=== PATIENT | female | born 1965 | race Caucasian/White ===

== ENCOUNTER 2017-01-30 11:37 | Emergency (ER) | payer OTHER ==
[~2017-01-30] VITALS: Ht 165.1 cm; Wt 56.9 kg
[~2017-01-30 11:37] MED LIST: ASCA500 PO; CALCTAB13 PO; CLBCRM30 EXT; FLUO0.0543 TOP; FLUO10CA48 PO; FLV1 PO; LRT5 PO; MERCAPTOPURINE PO; MOME50SP5 NAE; MULT-506 PO; PRLSR20 PO; SUMA6KIT SC; ULT/50 PO
[2017-01-30 11:42] VITALS: TEMP 36.6; Ht 165.1 cm; Wt 56.9 kg
[2017-01-30] MEDS ORDERED: SODIUM CHLORIDE 0.9% 1000ML 1,000 ML IV STA (12:32)
[2017-01-30 12:33] LABS: BASO % 0.7 %; BASO ABS # 0.06 K/uL (0-0.2); COMPLETE YES; EOS % 0.6 %; HEMATOCRIT 43.3 % (37-47); IG% 0.1 %; LYMPH % 16.1 %; LYMPH ABS # 1.45 K/uL (1.2-3.4); MEAN CELL VOLUME 89.8 fL (80-100); MEAN CORPUSCULAR HEMOGLOBIN 31.3 pg (25-34); MEAN CORPUSCULAR HGB CONC 34.9 g/dl (32-36); MONO % 4.6 %; NEUT % 77.9 %; PLATELET COUNT 328 K/uL (130-400); RED BLOOD COUNT 4.82 M/uL (4.2-5.4); WHITE BLOOD COUNT 8.99 K/uL (4.8-10.8)
[2017-01-30 12:39] LABS: MANUAL MICROSCOPIC REQUIRED? YES; URINE APPEARANCE SL CLOUDY (CLEAR); URINE BILIRUBIN NEG (NEG); URINE COLOR RED; URINE NITRITE NEG (NEG); URINE PH 5.5 (4.5-7.5); URINE SPECIFIC GRAVITY <= 1.005 (1.000-1.030); UROBILINOGEN NEG (NEG)
--- NOTE | 2017-01-30 12:46 | DIAGNOSTIC IMAGING REPORT ---
CHEST ONE VIEW PORTABLE HISTORY: 51 years Female acute dizziness COMPARISON: Chest radiograph 02/01/2011 TECHNIQUE: Portable upright AP view of the chest FINDINGS: Cardiomediastinal and hilar silhouettes are within normal limits no pneumothorax, pleural effusion, focal airspace consolidation or overt pulmonary edema. There is mild pulmonary hyperinflation The bones are grossly intact. IMPRESSION: Mild pulmonary hyperinflation without acute cardiopulmonary process. The above report was generated using voice recognition software. It may contain grammatical, syntax or spelling errors. Electronically signed by: Jorge Arevalo M.D. 01/30/2017 12:45 PM Dictated Date/Time: 01/30/2017 12:44 PM
[2017-01-30 13:00] LABS: REVIEW REQ? NO
[2017-01-30 13:04] LABS: BUN/CREATININE RATIO 11.4 (10-20); CALCIUM 9.1 mg/dl (8.5-10.1); CKMB/CK RATIO 1.3 (0-3.0); CREATININE 0.96 mg/dl (0.60-1.20); MAGNESIUM 2.2 mg/dl (1.8-2.4); POTASSIUM 4.1 mmol/L (3.5-5.1); THYROID STIMULATING HORMONE 4.44 uIu/ml (0.300-4.500)
[2017-01-30 13:15] LABS: URINE RBC >30 /hpf (0-4)
[2017-01-30 13:17] LABS: URINE BACTERIA 1+ (NEG)
[2017-01-30 13:19] LABS: ZZUR CULT IF INDIC CLEAN CATCH YES
--- NOTE | 2017-01-30 13:25 | EMERGENCY ROOM VISIT NOTE ---
History Report prepared by Ramila: Siva Sandoval Under the Supervision of: Dr. Pérez Chaves D.O. First contact with patient: 12:25 Chief Complaint: DIZZY Stated Complaint: DIZZY,WEAK, ARMS TINGLING AND BLOOD IN STOOL Nursing Triage Summary: pt c/o tingling to bilateral arms in triage. History of Present Illness The patient is a 51 year old female who presents to the Emergency Room with complaints of lightheadedness starting around 3 and a half hours ago. She reports worsening symptoms with standing up and ambulation. She has symptom relief with rest. She also complains of generalized weakness occurring for the past 2 days. She has been having bright, red blood in stool starting yesterday. She reports mild abdominal pain. As per , she was outside in the heat yesterday for about 4 hours. The patient denies cough, chest pain, shortness of breath, nausea, vomiting, diarrhea, or any other complaints. She is currently having her menstrual period. She has a history of Crohn's disease but denies any similar symptoms. She has a history of appendectomy. The patient does not have a history of fissures. Source of History: patient Onset: around 3 and a half hours ago Position: other (global) Quality: other (lightheadedness) Modifying Factors (Worsening): other (standing up and ambulation) Modifying Factors (Relieving): rest Associated Symptoms: No cough, No chest pain, No SOB, No nausea, No vomiting , No diarrhea Review of Systems See HPI for pertinent positives & negatives. A total of 10 systems reviewed and were otherwise negative. Past Medical & Surgical Medical Problems: (1) Crohn's disease (2) Ganglion cyst Surgical Problems: (1) History of appendectomy Family History Gallbladder disease Heart disease Hypertension Social History Smoking Status: Current Every Day Smoker Alcohol Use: occasionally Marital Status: Current/Historical Medications No Active Prescriptions or Reported Meds Allergies Coded Allergies: Penicillins (Verified Allergy, Intermediate, AMOXICILLIN - RASH, 01/06/12) Sulfamethoxazole w/Trimethoprim (Verified Allergy, Unknown, unknown, ) Physical Exam Vital Signs Date Time Temp Pulse Resp B/P (MAP) Pulse Ox O2 Delivery O2 Flow Rate FiO2 01/30/17 15:40 56 18 135/90 97 Room Air 01/30/17 13:37 61 20 133/89 98 Room Air 01/30/17 12:55 71 01/30/17 11:42 36.6 78 20 165/108 98 Room Air Physical Exam GENERAL: Patient is awake, alert, and in no acute distress. Patient is resting comfortably and showing no signs of anxiety EYES: The conjunctivae are clear. The pupils are round and reactive. EARS, NOSE, MOUTH AND THROAT: The nose is without any evidence of any deformity. Mucous membranes are dry tongue is midline NECK: The neck is nontender and supple. RESPIRATORY: Normal respiratory effort is noted there is no evidence of wheezing rhonchi or rales CARDIOVASCULAR: Regular rate and rhythm noted there no murmurs rubs or gallops normal S1 normal S2 GASTROINTESTINAL: The abdomen is soft. Bowel sounds are present in all quadrants. Abdomen is nontender RECTAL: Brown stool, heme negative. MUSCULOSKELETAL/EXTREMITIES: There is no evidence of gross deformity full range of motion is noted in the hips and shoulders SKIN: There is no obvious evidence of any rash. There are no petechiae, pallor or cyanosis noted. NEUROLOGIC: Patient is awake alert and oriented x3 strength is symmetric patellar reflexes are 2+ bilaterally Medical Decision & Procedures ER Provider Diagnostic Interpretation: X-ray results as stated below per interpretation by me and the radiologist. CHEST ONE VIEW PORTABLE HISTORY: 51 years Female acute dizziness COMPARISON: Chest radiograph 02/01/2011 TECHNIQUE: Portable upright AP view of the chest FINDINGS: Cardiomediastinal and hilar silhouettes are within normal limits no pneumothorax, pleural effusion, focal airspace consolidation or overt pulmonary edema. There is mild pulmonary hyperinflation The bones are grossly intact. IMPRESSION: Mild pulmonary hyperinflation without acute cardiopulmonary process. The above report was generated using voice recognition software. It may contain grammatical, syntax or spelling errors. Electronically signed by: Jorge Arevalo M.D. 01/30/2017 12:45 PM Dictated Date/Time: 01/30/2017 12:44 PM Laboratory Results 01/30/17 12:14 Red Blood Count 4.82, Mean Corpuscular Volume 89.8, Mean Corpuscular Hemoglobin 31.3, Mean Corpuscular Hemoglobin Concent 34.9, Mean Platelet Volume 10.0, Neutrophils (%) (Auto) 77.9, Lymphocytes (%) (Auto) 16.1, Monocytes (%) (Auto) 4.6, Eosinophils (%) (Auto) 0.6, Basophils (%) (Auto) 0.7, Neutrophils # (Auto) 7.01, Lymphocytes # (Auto) 1.45, Monocytes # (Auto) 0.41, Eosinophils # (Auto) 0.05, Basophils # (Auto) 0.06 01/30/17 12:14 Test 01/30/17 12:14 01/30/17 12:40 White Blood Count 8.99 K/uL (4.8-10.8) Red Blood Count 4.82 M/uL (4.2-5.4) Hemoglobin 15.1 g/dL (12.0-16.0) Hematocrit 43.3 % (37-47) Mean Corpuscular Volume 89.8 fL (80-100) Mean Corpuscular Hemoglobin 31.3 pg (25-34) Mean Corpuscular Hemoglobin Concent 34.9 g/dl (32-36) Platelet Count 328 K/uL (130-400) Mean Platelet Volume 10.0 fL (7.4-10.4) Neutrophils (%) (Auto) 77.9 % Lymphocytes (%) (Auto) 16.1 % Monocytes (%) (Auto) 4.6 % Eosinophils (%) (Auto) 0.6 % Basophils (%) (Auto) 0.7 % Neutrophils # (Auto) 7.01 K/uL (1.4-6.5) Lymphocytes # (Auto) 1.45 K/uL (1.2-3.4) Monocytes # (Auto) 0.41 K/uL (0.11-0.59) Eosinophils # (Auto) 0.05 K/uL (0-0.5) Basophils # (Auto) 0.06 K/uL (0-0.2) RDW Standard Deviation 52.1 fL (36.4-46.3) RDW Coefficient of Variation 15.7 % (11.5-14.5) Immature Granulocyte % (Auto) 0.1 % Immature Granulocyte # (Auto) 0.01 K/uL (0.00-0.02) Urine Color RED Urine Appearance SL CLOUDY (CLEAR) Urine pH 5.5 (4.5-7.5) Urine Specific Mckinney <= 1.005 (1.000-1.030) Urine Protein TRACE (NEG) Urine Glucose (UA) NEG (NEG) Urine Ketones NEG (NEG) Urine Occult Blood 3+ (NEG) Urine Nitrite NEG (NEG) Urine Bilirubin NEG (NEG) Urine Urobilinogen NEG (NEG) Urine Leukocyte Esterase NEG (NEG) Urine RBC >30 /hpf (0-4) Urine WBC 5-10 /hpf (0-5) Urine Epithelial Cells 10-20 /lpf (0-5) Urine Bacteria 1+ (NEG) Anion Gap 5.0 mmol/L (3-11) Est Creatinine Clear Calc Drug Dose 61.6 ml/min Estimated GFR () 78.8 Estimated GFR (Non- 68.0 BUN/Creatinine Ratio 11.4 (10-20) Calcium Level 9.1 mg/dl (8.5-10.1) Magnesium Level 2.2 mg/dl (1.8-2.4) Total Bilirubin 0.4 mg/dl (0.2-1) Aspartate Amino Transf (AST/SGOT) 19 U/L (15-37) Alanine Aminotransferase (ALT/SGPT) 17 U/L (12-78) Alkaline Phosphatase 85 U/L (45-117) Total Creatine Kinase 62 U/L (26-192) Creatine Kinase MB 0.8 ng/ml (0.5-3.6) Creatine Kinase MB Ratio 1.3 (0-3.0) Total Protein 7.7 gm/dl (6.4-8.2) Albumin 3.8 gm/dl (3.4-5.0) Globulin 3.9 gm/dl (2.5-4.0) Albumin/Globulin Ratio 1.0 (0.9-2) Thyroid Stimulating Hormone (TSH) 4.440 uIu/ml (0.300-4.500) Free Thyroxine 0.71 ng/dl (0.80-1.60) Chemistry Specimen Hemolysis Bedside Troponin I < 0.030 ng/ml (0-0.045) Laboratory results per my review. Medications Administered Medications (Trade) Dose Ordered Sig/Kamila Route Start Time Stop Time Status Last Admin Dose Admin Sodium Chloride 1,000 ml @ 999 mls/hr Q1H1M STAT IV 01/30/17 12:32 01/30/17 13:32 DC 01/30/17 13:35 999 MLS/HR ECG Indication: other (Lightheadedness) Rate (beats per minute): 64 Rhythm: normal sinus Findings: no ectopy, other (Poor r wave progression) Comparison ECG Date: August 01, 2010 Change: no significant change ED Course 1225: The patient was evaluated in room B07. A complete history and physical examination were performed. 1232: Sodium Chloride 1000 ml @ 999 mls/hr IV 1540: Upon reevaluation, the patient is resting comfortably. I discussed the results and treatment plan with her. She verbalized agreement of the treatment plan. She was discharged home. Medical Decision Prior records/ancillary studies reviewed. Triage Nursing notes reviewed. The patient's history was concerning for dizziness. Differential diagnosis: Etiologies such as benign positional vertigo, dehydration, hypovolemia, anemia, tumor, infection, hypoglycemia, electrolyte abnormalities, cardiac sources, intracerebral event, toxicologic, neurologic, as well as others were entertained. The patient is a 51-year-old female who presented to the emergency department for an evaluation of dizziness as well as rectal bleeding. The patient's physical exam appeared to be consistent with a rectal source for her bleeding. Her stool was heme-negative. I discussed the patient's laboratory and radiographic studies with her. She was treated with IV fluids in the emergency department. On subsequent reevaluation she was feeling much improved. She was encouraged to rest and avoid any strenuous activity. She was also encouraged to call her family doctor in the morning to schedule a follow-up appointment. She was also encouraged to return the emergency apartment immediately if symptoms change worsen or the need arises. Head Trauma GCS Score: 15 Medication Reconcilliation Current Medication List: was personally reviewed by me Blood Pressure Screening Patient's blood pressure: Elevated blood pressure Blood pressure disposition: Elevated BP felt to be situational Impression Primary Impression: Dizziness Additional Impression: Lower GI bleeding Scribe Attestation The scribe's documentation has been prepared under my direction and personally reviewed by me in its entirety. I confirm that the note above accurately reflects all work, treatment, procedures, and medical decision making performed by me. Departure Information Dispostion Home / Self-Care Prescriptions No Active Prescriptions or Reported Meds Referrals Andrey Anaya D.O. (PCP) Forms HOME CARE DOCUMENTATION FORM, IMPORTANT VISIT INFORMATION Patient Instructions Bleeding Rectal, ED Dizziness O, My [facility] Additional Instructions Continue all medications as prescribed. Drink plenty of clear liquids. Call your family in the morning to schedule follow-up appointment. Return to the emergency department immediately if symptoms worsen or if need arises. Problem Qualifiers
[2017-01-30 15:40] VITALS: BP 135/90; PULSE 56; O2SAT 97
== END 2017-01-30 16:01 | disposition home or self-care (01) ==
LOC: C.EDB 11:39
DX: R42 Dizziness and giddiness (principal); K92.2 Gastrointestinal hemorrhage, unspecified; K50.90 Crohn's disease, unspecified, without complications; F17.200 Nicotine dependence, unspecified, uncomplicated; Z82.49 Family history of ischemic heart disease and other diseases of the circulatory system

== ENCOUNTER 2022-08-21 00:29 | Inpatient (IN) ==
--- NOTE | 2022-08-21 00:59 | Emergency Department Note ---
History of Present Illness General Chief complaint: Abdominal Pain Stated complaint: SHARP ABDOMINAL PAIN EVERY 5-10 MINUTES Time Seen by Provider: 08/21/22 00:53 History of Present Illness Maximum Pain Intensity: 8 This 57-year-old female patient presents to the emergency department for evaluation of intermittent epigastric abdominal pain that started tonight around 6 pm. She states that she has an underlying constant dull pain with more severe sharp abdominal pain every 5 to 10 minutes. Also admits to nausea and vomiting yesterday, but no vomiting today. Rates her discomfort as 8/10. Has never had previous similar episodes. Has been having some burning with her urine today as well. Typically moves her bowels well, but no BM today. No fevers. Denies any chest pain or SOB. Has not taken anything for the symptoms. She still has her gallbladder. She has a history of Crohn's Disease, but not currently on any treatment. Last colonoscopy 2 years ago was normal per patient. She takes Lisinopril, Lipitor, and other medications that she does not remember the names of. Home Medications Medication Instructions Recorded Confirmed Type albuterol sulfate 2.5 mg/3 mL 2.5 mg inhalation QID PRN 08/21/22 08/21/22 History (0.083 %) solution for nebulization Shortness Of Breath atorvastatin 10 mg tablet 10 mg PO HS 08/21/22 08/21/22 History cholecalciferol (vitamin D3) 50 50 mcg PO DAILY 08/21/22 08/21/22 History mcg (2,000 unit) capsule (Vitamin D3) escitalopram oxalate 10 mg tablet 10 mg PO DAILY 08/21/22 08/21/22 History levothyroxine 25 mcg tablet 25 mcg PO DAILYBB 08/21/22 08/21/22 History lisinopril 10 mg tablet 10 mg PO DAILY 08/21/22 08/21/22 History omeprazole 20 mg capsule,delayed 20 mg PO DAILYBB 08/21/22 08/21/22 History release sumatriptan succinate 6 mg/0.5 mL 6 mg subcut BID PRN Headache 08/21/22 08/21/22 History subcutaneous cartridge (refill) Allergies Allergy/AdvReac Type Severity Reaction Status Date / Time Penicillins Allergy Intermediate AMOXICILLIN Verified 08/21/22 01:35 - RASH sulfamethoxazole [Bactrim] Allergy Intermediate Rash Verified 08/21/22 01:35 trimethoprim [Bactrim] Allergy Intermediate Rash Verified 08/21/22 01:35 Past Med/Surg History Medical History Crohn's disease High cholesterol Hypertension Social History Smoking Status: Current every day smoker Preferred Language: Divehi Feels Safe at Home: Yes Review of Systems See HPI for pertinent positives & negatives. Physical Exam Vital Signs Vital Signs - 24 hr 08/21/22 00:32 08/21/22 00:52 08/21/22 00:41 Temperature 36.5 C Temperature Source Temporal Artery Scan Pulse Rate 87 77 Pulse Rate [Finger] 67 Pulse Rate from SpO2 Sensor Respiratory Rate 16 18 17 Respiratory Effort / Characteristics Non-Labored Respiratory Depth Normal Blood Pressure 173/113 H Blood Pressure [Right Arm] 176/107 H Blood Pressure Mean 133 Blood Pressure Mean [Right Arm] 130 Pulse Oximetry 97 96 Oxygen Delivery Method Room Air Room Air Sepsis Recent Fever Within 48 Hours No Sepsis New/Unexplained Change in Mental Status N/A Sepsis Action Taken by Nursing No Action Required 08/21/22 00:42 08/21/22 00:42 08/21/22 00:50 Temperature Temperature Source Pulse Rate 70 70 Pulse Rate [Finger] Pulse Rate from SpO2 Sensor 73 68 Respiratory Rate 21 19 Respiratory Effort / Characteristics Respiratory Depth Blood Pressure 174/107 H Blood Pressure [Right Arm] Blood Pressure Mean 129 Blood Pressure Mean [Right Arm] Pulse Oximetry 97 97 Oxygen Delivery Method Sepsis Recent Fever Within 48 Hours Sepsis New/Unexplained Change in Mental Status Sepsis Action Taken by Nursing 08/21/22 01:00 08/21/22 01:10 08/21/22 01:20 Temperature Temperature Source Pulse Rate 63 61 61 Pulse Rate [Finger] Pulse Rate from SpO2 Sensor 63 Respiratory Rate 19 19 19 Respiratory Effort / Characteristics Respiratory Depth Blood Pressure Blood Pressure [Right Arm] Blood Pressure Mean Blood Pressure Mean [Right Arm] Pulse Oximetry 96 Oxygen Delivery Method Sepsis Recent Fever Within 48 Hours Sepsis New/Unexplained Change in Mental Status Sepsis Action Taken by Nursing 08/21/22 01:30 08/21/22 01:41 08/21/22 01:46 Temperature Temperature Source Pulse Rate 65 73 61 Pulse Rate [Finger] Pulse Rate from SpO2 Sensor 62 Respiratory Rate 21 23 21 Respiratory Effort / Characteristics Respiratory Depth Blood Pressure Blood Pressure [Right Arm] Blood Pressure Mean Blood Pressure Mean [Right Arm] Pulse Oximetry 96 97 Oxygen Delivery Method Sepsis Recent Fever Within 48 Hours Sepsis New/Unexplained Change in Mental Status Sepsis Action Taken by Nursing 08/21/22 01:46 08/21/22 01:50 08/21/22 02:00 Temperature Temperature Source Pulse Rate 59 L 63 Pulse Rate [Finger] Pulse Rate from SpO2 Sensor 59 L 61 Respiratory Rate 17 14 Respiratory Effort / Characteristics Respiratory Depth Blood Pressure 154/85 H Blood Pressure [Right Arm] Blood Pressure Mean 108 Blood Pressure Mean [Right Arm] Pulse Oximetry 96 96 Oxygen Delivery Method Sepsis Recent Fever Within 48 Hours Sepsis New/Unexplained Change in Mental Status Sepsis Action Taken by Nursing 08/21/22 02:10 08/21/22 02:58 08/21/22 02:30 Temperature Temperature Source Pulse Rate 64 Pulse Rate [Finger] 64 Pulse Rate from SpO2 Sensor 67 Respiratory Rate 12 18 18 Respiratory Effort / Characteristics Non-Labored Respiratory Depth Normal Blood Pressure Blood Pressure [Right Arm] 154/94 H 128/82 Blood Pressure Mean Blood Pressure Mean [Right Arm] 114 97 Pulse Oximetry 96 94 98 Oxygen Delivery Method Room Air Room Air Sepsis Recent Fever Within 48 Hours Sepsis New/Unexplained Change in Mental Status Sepsis Action Taken by Nursing 08/21/22 04:26 Temperature Temperature Source Pulse Rate Pulse Rate [Finger] 64 Pulse Rate from SpO2 Sensor Respiratory Rate 16 Respiratory Effort / Characteristics Respiratory Depth Blood Pressure Blood Pressure [Right Arm] 154/88 H Blood Pressure Mean Blood Pressure Mean [Right Arm] 110 Pulse Oximetry 97 Oxygen Delivery Method Room Air Sepsis Recent Fever Within 48 Hours Sepsis New/Unexplained Change in Mental Status Sepsis Action Taken by Nursing VITALS: Vitals are noted on the nurse's note and reviewed by myself. GENERAL: Non toxic, no acute distress, non-diaphoretic. SKIN: Capillary refill <2 sec. EYES: PERRLA. EOMI. Conjunctivae without injection, sclerae without icterus. NOSE: Patent without discharge. MOUTH: Mucous membranes moist. Uvula midline. Airway patent. NECK: Supple without nuchal rigidity. HEART: Regular rate and rhythm without murmurs gallops or rubs. LUNGS: Clear to auscultation bilaterally without wheezes, rales or rhonchi. No retractions or accessory muscle use. ABDOMEN: Positive bowel sounds x 4. Normal tympanic percussion. Soft, tender to palpation in the epigastric area as well as the central abdomen, without masses or organomegaly. Wetzel sign negative. No guarding or rebound tenderness. No focal RLQ or LLQ tenderness. NEURO: Patient was alert and oriented to person place and time. Course Administered Medications Discontinued Medications Sodium Chloride (Nss 1000ml) 1,000 mls @ 999 mls/hr IV .Q1H1M STA Stop: 08/21/22 02:10 Last Infusion: 08/21/22 02:45 Dose: 0 mls/hr Documented By: Admin: 08/21/22 01:50 Dose: 999 mls/hr Documented By: BRENNEN Ioversol (Optiray 350 100ml) 100 ml IV ONCE ONE Stop: 08/21/22 02:52 Last Admin: 08/21/22 02:51 Dose: 87 ml Documented By: MAHESH Ketorolac Tromethamine (Ketorolac Tromethamine 15 Mg/Ml Vial) 10 mg IV NOW STA Stop: 08/21/22 01:11 Last Admin: 08/21/22 01:50 Dose: 10 mg Documented By: BRENNEN Ondansetron HCl (Ondansetron Inj 2 Mg/Ml 2 Ml Vial) 4 mg IV NOW STA Stop: 08/21/22 01:11 Last Admin: 08/21/22 01:50 Dose: 4 mg Documented By: BRENNEN Medical Decision Making Differential Diagnosis Differential diagnosis includes appendicitis, diverticulitis, bowel obstruction, inflammatory bowel disease, renal colic, PUD, biliary pathology, pancreatitis, mesenteric ischemia, aortic pathology, infection, genitourinary, UTI, perforated viscus, among others. Laboratory Data Attestation: I reviewed the patient's lab results. 08/21/22 01:35 08/21/22 01:35 Lab Results 08/21/22 08/21/22 08/21/22 Range/Units 01:35 01:35 01:35 WBC 12.74 H (4.8-10.8) K/ul RBC 4.78 (4.20-5.40) M/uL Hgb 14.7 (12.0-16.0) g/dl Hct 42.7 (37.0-47.0) % MCV 89.3 (80.0-100.0) fL MCH 30.8 (25.0-34.0) pg MCHC 34.4 (32.0-36.0) g/dL RDW Std Deviation 47.5 H (36.4-46.3) fL RDW Coeff of Kathia 14.6 H (11.5-14.5) % Plt Count 313 (130-400) K/uL MPV 9.4 (9.4-12.4) fL Immature Gran % (Auto) 0.4 % Neut % (Auto) 68.9 % Lymph % (Auto) 22.9 % [place]ead[place] % (Auto) 6.0 % Eos % (Auto) 1.1 % Baso % (Auto) 0.7 % Neut # (Auto) 8.77 H (1.40-6.50) K/uL Lymph # (Auto) 2.92 (1.2-3.4) K/uL Beadle # (Auto) 0.77 H (0.11-0.59) K/uL Eos # (Auto) 0.14 (0-0.50) K/uL Baso # (Auto) 0.09 (0-0.2) K/uL Immature Gran # (Auto) 0.05 (0.01-0.20) K/uL ESR 8 (0-30) mm/hr Sodium 138 (136-145) mmol/L Potassium 3.7 (3.5-5.1) mmol/L Chloride 106 (98-107) mmol/L Carbon Dioxide 23 (21-32) mmol/L Anion Gap 9 (3-11) BUN 18 (6-23) mg/dl Creatinine 0.72 (0.6-1.2) mg/dl Est Cr Clr Drug Dosing 73.5 ml/min Est GFR ( Amer) 107.0 ml/min Est GFR (Non-Af Amer) 92.3 ml/min BUN/Creatinine Ratio 25.0 H (10-20) Glucose 114 H (70-99(Fasting)) mg/dl Calcium 10.0 (8.5-10.1) mg/dl Total Bilirubin 0.8 (0.2-1.0) mg/dl AST 20 (13-39) U/L ALT 17 (7-52) U/L Alkaline Phosphatase 80 (34-104) U/L Troponin I High Sens 2.5 (0-14) pg/ml C-Reactive Protein < 0.50 (0-0.5) mg/dl Total Protein 7.5 (6.0-8.3) gm/dl Albumin 4.7 (3.4-5.0) gm/dl Globulin 2.8 (2.5-4.0) gm/dl Albumin/Globulin Ratio 1.7 (0.9-2) Lipase 13 (11-82) U/L Urine Color Urine Appearance (Clear) Urine pH (4.5-7.5) Ur Specific [place] (1.000-1.030) Urine Protein (Negative) Urine Glucose (UA) (Negative) Urine Ketones (Negative) Urine Blood (Negative) Urine Nitrite (Negative) Urine Bilirubin (Negative) Urine Urobilinogen (Negative) Ur Leukocyte Esterase (Negative) Urine WBC (Auto) (0-5) /hpf Urine RBC (Auto) (0-4) /hpf U Hyaline Cast (Auto) (0-5) /lpf U Epithel Cells (Auto) (0-5) /lpf Urine Bacteria (Auto) (Negative) Calcium Oxalate Crystal (None Prsent) Urine Mucus (None Prsent) SARS-CoV-2, RNA, NAAT (NEGATIVE) 08/21/22 08/21/22 Range/Units 01:45 04:38 WBC (4.8-10.8) K/ul RBC (4.20-5.40) M/uL Hgb (12.0-16.0) g/dl Hct (37.0-47.0) % MCV (80.0-100.0) fL MCH (25.0-34.0) pg MCHC (32.0-36.0) g/dL RDW Std Deviation (36.4-46.3) fL RDW Coeff of Kathia (11.5-14.5) % Plt Count (130-400) K/uL MPV (9.4-12.4) fL Immature Gran % (Auto) % Neut % (Auto) % Lymph % (Auto) % Beadle % (Auto) % Eos % (Auto) % Baso % (Auto) % Neut # (Auto) (1.40-6.50) K/uL Lymph # (Auto) (1.2-3.4) K/uL [place] # (Auto) (0.11-0.59) K/uL Eos # (Auto) (0-0.50) K/uL Baso # (Auto) (0-0.2) K/uL Immature Gran # (Auto) (0.01-0.20) K/uL ESR (0-30) mm/hr Sodium (136-145) mmol/L Potassium (3.5-5.1) mmol/L Chloride (98-107) mmol/L Carbon Dioxide (21-32) mmol/L Anion Gap (3-11) BUN (6-23) mg/dl Creatinine (0.6-1.2) mg/dl Est Cr Clr Drug Dosing ml/min Est GFR ( Amer) ml/min Est GFR (Non-Af Amer) ml/min BUN/Creatinine Ratio (10-20) Glucose (70-99(Fasting)) mg/dl Calcium (8.5-10.1) mg/dl Total Bilirubin (0.2-1.0) mg/dl AST (13-39) U/L ALT (7-52) U/L Alkaline Phosphatase (34-104) U/L Troponin I High Sens (0-14) pg/ml C-Reactive Protein (0-0.5) mg/dl Total Protein (6.0-8.3) gm/dl Albumin (3.4-5.0) gm/dl Globulin (2.5-4.0) gm/dl Albumin/Globulin Ratio (0.9-2) Lipase (11-82) U/L Urine Color Dark Yellow Urine Appearance Cloudy A (Clear) Urine pH 5.5 (4.5-7.5) Ur Specific [place] 1.032 H (1.000-1.030) Urine Protein Trace H (Negative) Urine Glucose (UA) Negative (Negative) Urine Ketones Trace H (Negative) Urine Blood Negative (Negative) Urine Nitrite Negative (Negative) Urine Bilirubin Negative (Negative) Urine Urobilinogen Negative (Negative) Ur Leukocyte Esterase 1+ H (Negative) Urine WBC (Auto) 10-30 H (0-5) /hpf Urine RBC (Auto) 0-4 (0-4) /hpf U Hyaline Cast (Auto) 0 (0-5) /lpf U Epithel Cells (Auto) >30 H (0-5) /lpf Urine Bacteria (Auto) 1+ H (Negative) Calcium Oxalate Crystal Present A (None Prsent) Urine Mucus Present A (None Prsent) SARS-CoV-2, RNA, NAAT NEGATIVE (NEGATIVE) Imaging Data Radiologist's Impression: Preliminary Findings Only See Final Report For Complete Findings CT ABDOMEN & PELVIS With Contrast: Right hemicolectomy changes with mild focal thickening at the anastomosis with mild upstream prominent loops of ileum measuring up to 2.9 cm. Mild fecalization noted within the upstream loops which may relate to stasis. Additional submucosal hyperenhancement within multiple upstream loops with focal thickening at the anastomosis. Findings may relate to enteritis. Early developing bowel obstruction is not excluded. Consider short-term interval radiographic follow-up imaging. No evidence of pneumatosis, portal venous gas, free air. Mild mesenteric ascites which is likely reactive in nature. No other acute findings. Radiologist: Harry Cantor MD Study ready at 03:00 and initial results transmitted at 03:35 MDM Narrative I examined the patient. An IV lock was placed and labs were drawn. She was given 1 L normal saline solution bolus. She was given Toradol 10 mg IV and Zofran 4 mg IV for pain. White blood cell count was elevated at 12.74. No evidence for anemia. CMP essentially unremarkable. Lipase normal. Sed rate and CRP were normal. Lactate was normal. Urinalysis with questionable UTI with culture pending. COVID-negative. CT scan of the abdomen pelvis with IV contrast was reviewed by myself and read by stat rad as above and shows possible enteritis as well as early developing bowel obstruction. It also shows mild mesenteric ascites which is likely reactive in nature. The patient has not had a bowel movement in over 24 hours per patient. Had vomiting yesterday, but no vomiting today. Due to the patient's pain, elevated white blood cell count, CT scan findings, and history of Crohn's disease I feel the patient would benefit from admission for further evaluation, treatment, and monitoring to determine if she is developing a bowel obstruction. I spoke with the on-call hospitalist who agreed to admit the patient. Please refer to their dictation for further details. The patient's care was transferred in stable condition. Impression & Plan Enteritis, Abdominal pain Discharge Plan Visit Data Chief Complaint: Abdominal Pain Stated Complaint: SHARP ABDOMINAL PAIN EVERY 5-10 MINUTES ED Provider: Daphne Kennedy ED Midlevel Provider: Basia Reyes Discharge Problem: Enteritis, Abdominal pain Patient Disposition: Admitted As Inpatient Condition: Good Discharge Instructions Interventions: ED Discharge Assessment Last Done: 08/21/22 05:57
[2022-08-21] MEDS ORDERED: SODIUM CHLORIDE 0.9% 1000ML 1,000 ML IV STA (01:10)
[2022-08-21] MEDS ORDERED: KETOROLAC TROMETHAMINE 15 MG/ML VIAL IV STA (01:10)
[2022-08-21] MEDS ORDERED: ONDANSETRON INJ 2 MG/ML 2 ML VIAL IV STA (01:10)
[2022-08-21 02:01] LABS: Basophils # (auto) 0.09 K/uL (0-0.2); Basophils % (auto) 0.7 %; Eosinophils # (auto) 0.14 K/uL (0-0.50); Eosinophils % (auto) 1.1 %; Hematocrit (blood only) 42.7 % (37.0-47.0); Hemoglobin 14.7 g/dl (12.0-16.0); Immature Granulocytes # (auto) 0.05 K/uL (0.01-0.20); Immature Granulocytes % (auto) 0.4 %; Lymphocytes # (auto) 2.92 K/uL (1.2-3.4); Lymphocytes % (auto) 22.9 %; Mean Corpuscular Hemoglobin 30.8 pg (25.0-34.0); Mean Corpuscular Hgb Conc 34.4 g/dL (32.0-36.0); Mean Corpuscular Volume 89.3 fL (80.0-100.0); Mean Platelet Volume 9.4 fL (9.4-12.4); Monocytes # (auto) 0.77 K/uL (0.11-0.59); Neutrophils # (auto) 8.77 K/uL (1.40-6.50); Neutrophils % (auto) 68.9 %; Platelet Count 313 K/uL (130-400); RDW Coefficient of Variation 14.6 % (11.5-14.5); RDW Standard Deviation 47.5 fL (36.4-46.3); Red Blood Count 4.78 M/uL (4.20-5.40); White Blood Count 12.74 K/ul (4.8-10.8)
[2022-08-21 02:09] LABS: Appearance Urine Cloudy (Clear); Bacteria Urine Automated 1+ (Negative); Bilirubin Urine Negative (Negative); Blood Urine Negative (Negative); Color Urine Dark Yellow; Epithelial Cell Urine Auto >30 /lpf (0-5); Glucose Urine UA Negative (Negative); Ketones Urine Trace (Negative); Leukocyte Esterase Urine 1+ (Negative); Nitrite Urine Negative (Negative); Protein Urine Trace (Negative); Specific Gravity Urine 1.032 (1.000-1.030); Urobilinogen Urine Negative (Negative); pH Urine 5.5 (4.5-7.5)
[2022-08-21 02:22] LABS: Alanine Aminotransferase 17 U/L (7-52); Albumin Globulin Ratio 1.7 (0.9-2); Albumin Level 4.7 gm/dl (3.4-5.0); Alkaline Phosphatase 80 U/L (34-104); Anion Gap 9 (3-11); Aspartate Aminotransferase 20 U/L (13-39); Bilirubin,Total 0.8 mg/dl (0.2-1.0); Blood Urea Nitrogen 18 mg/dl (6-23); Carbon Dioxide 23 mmol/L (21-32); Chloride 106 mmol/L (98-107); Creatinine Clr Calc Pharmacy 73.5 ml/min; Est GFR (Non-African American) 92.3 ml/min; Globulin 2.8 gm/dl (2.5-4.0); Glucose 114 mg/dl (70-99(Fasting)); Lipase 13 U/L (11-82); Potassium 3.7 mmol/L (3.5-5.1); Sodium 138 mmol/L (136-145); Total Protein 7.5 gm/dl (6.0-8.3)
[2022-08-21 02:29] LABS: Troponin I High Sensitivity 2.5 pg/ml (0-14)
[2022-08-21] MEDS ORDERED: OPTIRAY 350 100ml IV ONE (02:51)
[2022-08-21 03:08] LABS: Calcium Oxalate Crystals Urine Present (None Prsent); Cast Urine Automated 0 /lpf (0-5); Mucus Urine Present (None Prsent); RBC Urine Automated 0-4 /hpf (0-4)
[2022-08-21 04:19] LABS: C Reactive Protein < 0.50 mg/dl (0-0.5)
[2022-08-21] MEDS ORDERED: ALBUTEROL 0.083% NEBU SOLN 3 ML VIAL INH PRN (06:20)
[2022-08-21] MEDS ORDERED: ACETAMINOPHEN 325 MG TAB PO PRN (06:20)
[2022-08-21] MEDS ORDERED: ONDANSETRON INJ 2 MG/ML 2 ML VIAL IV PRN (06:20)
[2022-08-21] MEDS ORDERED: SUMAtriptan succinate 6 MG/0.5 ML VIAL SQ PRN (06:24)
[2022-08-21] MEDS: D5W AND 1/2NSS 1,000 ML IV SCH ×3 (06:50→21:45)
[2022-08-21] MEDS: cefTRIAXone SODIUM 2,000 MG in DEXTROSE 5% 50 ML IV SCH (06:51)
--- NOTE | 2022-08-21 07:39 | CT Scan Report ---
ABDOMEN AND PELVIS CT WITH IV CONTRAST CT DOSE: 284.14 mGy.cm HISTORY: Epigastric abdominal pain. TECHNIQUE: Multiaxial CT images of the abdomen and pelvis were performed following the use of intrave nous contrast. A dose lowering technique was utilized adhering to the principles of ALARA. COMPARISON STUDY: Abdomen and pelvis CT 08/12/2011. FINDINGS: Mild dependent changes seen within the lung bases. Punctate calcified granulomas within the right lung base. No pneumoperitoneum. No pneumatosis. No acute fractures identified. The liver, gall bladder, spleen, adrenal glands, and pancreas are unremarkable. The kidneys enhance normally. No hydr onephrosis. The main portal vein is patent. No retroperitoneal lymphadenopathy. Normal caliber abdomi nal aorta. The bladder, uterus, and ovaries are within normal limits. Small amount of pelvic free flu id. Prior right hemicolectomy. Moderate bowel wall thickening at the ileocolic anastomosis as well is [id number] bowel wall thickening involving the majority ileal loops within the right lower mendoza drant which are also slightly distended and fluid-filled. Findings are consistent with a nonspecific enterocolitis with a probable partial small bowel obstruction due to the thickening at the ileocolic anastomosis. There is mild mesenteric edema within the right side of the abdomen adjacent to the thic kened ileal loops. IMPRESSION: Prior right hemicolectomy. Moderate bowel wall thickening at the ileocolic anastomosis as well is mil [id number] bowel wall thickening involving the majority of the ileal loops within the right lower quadrant which are also slightly distended and fluid-filled. Findings are consistent with a nonspecif ic enterocolitis with a probable partial small bowel obstruction due to the thickening at the ileocol ic anastomosis. ACT 112: Negative or not required by law. Electronically signed by: Baldev Cervantes M.D. 08/21/2022 7:37 AM
[2022-08-21] MEDS: FAMOTIDINE 20 MG in SYRINGE 3 ML IV SCH ×2 (07:50→20:51)
[2022-08-21] MEDS: ENOXAPARIN INJ 40 MG/0.4 ML SYR SQ SCH (07:50)
[2022-08-21] MEDS: ESCITALOPRAM OXALATE 10 MG TAB PO SCH (07:51)
[2022-08-21] MEDS: CHOLECALCIFEROL 1,000 UNITS 25 MCG TAB PO SCH (07:51)
[2022-08-21] MEDS: lisinopril 10 MG TAB PO SCH (07:51)
[2022-08-21] MEDS: LEVOTHYROXINE SODIUM 25 MCG TABLET PO SCH (07:51)
[2022-08-21] MEDS: PANTOprazole 40 MG TAB PO SCH (07:51)
[2022-08-21 08:10] LABS: Basophils # (auto) 0.04 K/uL (0-0.2); Basophils % (auto) 0.4 %; Eosinophils % (auto) 1.1 %; Hematocrit (blood only) 37.4 % (37.0-47.0); Hemoglobin 12.7 g/dl (12.0-16.0); Immature Granulocytes # (auto) 0.03 K/uL (0.01-0.20); Immature Granulocytes % (auto) 0.3 %; Lymphocytes # (auto) 2.16 K/uL (1.2-3.4); Lymphocytes % (auto) 23.8 %; Mean Corpuscular Hemoglobin 30.5 pg (25.0-34.0); Mean Corpuscular Volume 89.9 fL (80.0-100.0); Mean Platelet Volume 9.6 fL (9.4-12.4); Monocytes # (auto) 0.73 K/uL (0.11-0.59); Monocytes % (auto) 8.1 %; Neutrophils % (auto) 66.3 %; Platelet Count 264 K/uL (130-400); RDW Coefficient of Variation 14.6 % (11.5-14.5); RDW Standard Deviation 48.2 fL (36.4-46.3); Red Blood Count 4.16 M/uL (4.20-5.40); White Blood Count 9.06 K/ul (4.8-10.8)
[2022-08-21 08:26] LABS: BUN Creatinine Ratio 23.5 (10-20); Calcium 8.5 mg/dl (8.5-10.1); Creatinine Clr Calc Pharmacy 77.9 ml/min; Est GFR (African American) 111.8 ml/min; Est GFR (Non-African American) 96.4 ml/min; Magnesium 1.9 mg/dl (1.7-2.4); Potassium 3.9 mmol/L (3.5-5.1)
--- NOTE | 2022-08-21 08:29 | Gastrointestinal Consultation ---
Date of Consultation August 21, 2022 Assessment & Plan (1) Enteritis: (2) Abdominal pain: (3) Crohn's disease: Plan This is a 57 y/o female with h/o fibrostenotic Crohn's not currently on any meds since 2016, s/p remote right hemicolectomy, who presented w/ nausea, vomiting, abd pain and imaging suggestive of nonspecific enterocolitis w/ suspicion for pSBO w/ thickening at the ileocolonic anastomosis. Currently pt's symptoms appear to have resolved, no abd pain, n/v. Had a BM this AM and is passing flatus. Though ESR, CRP WNL, given her underlying history we wonder about underlying active Crohn's vs constipation in the setting of fibrostenotic disease. Will also check for C diff as pt's with IBD are prone to getting C diff. On exam she is resting comfortably, abd soft, nontender. - Can start clear liquid diet as tolerated - Check stool for C. diff - Daily KUB - Start Miralax 17 gm BID to keep bowels moving - Dulcolax 10 mg x 1 now - Monitor GI output - Would recommend pt f/u with regular OP provider and obtain OP MRE and colonoscopy followed by discussion to evaluate need for medications (such as biologics) for her Crohn's. Thank you for allowing us to participate in the care of this patient. Please call with any acute changes, questions or concerns. Please see addendum below with additional recommendation from my supervising physician. Supervising Physician Co-Signing Physician Notes I saw and evaluated the patient. We were consulted for evaluation of abdominal discomfort and an abnormal CT scan of the abdomen. Of note the patient does have a history of Crohn's disease but has not been on therapy for about 7 years as she was asymptomatic and she stopped therapy on her own. She is typically followed by both Ms. Greene and Dr. Muse as an outpatient. Her surgical history is notable for right hemicolectomy as result of fibrostenotic Crohn's disease. This was performed approximately 30 years ago in the early s. Physical examination no obvious distress Thin female no abdominal tenderness today Impression: Patient presenting with abdominal discomfort and a CT showing constipation and possible inflammatory changes in the distal small intestine. Not certain if this represents a small bowel obstruction however the patient is feeling much improved today and now having spontaneous bowel movements. Thus we will hold on adding any specific medications for inflammatory bowel disease at the present time. Would recommend continued IV hydration, clear liquid diet and starting use of duplex 10 mg/day in addition to MiraLAX 17 g twice daily. We w ill suggest that the patient have an outpatient colonoscopy with her regular GI provider in addition to MR enterography to restage her Crohn's disease and determine if biologic therapy is needed. Should the patient become worse tomorrow we would then recommend initiation of steroid Recommendations Continue IV hydration MiraLAX 17 g twice daily Advance to a clear liquid diet stool for C. difficile Outpatient MR enterography Outpatient colonoscopy History of Present Illness Attending Physician: Aiden Man MD History of Present Illness Ms. Amalia Fang is a 56 yr old female pt of Dr. Anaya with a hx of migraines, psoriasis who is followed by OP GI for long-standing fibrostenotic Crohn's. She is s/p right hemicolectomy in the . She has not been on any meds for Crohn's for some time, stopped the 6MP in 2015 because she was doing well. No regular Crohn's meds and no flares/no prednisone use since 2016. She has a known TI stricture. Last colonoscopy in 2019 w/o active dz. Recent EGD for dysphagia notable for Schatzki ring. Now admitted after presenting w/ nausea, vomiting abd pain. CT w/ nonspecific enterocolitis w/ probable pSBO d/t thickening at the ileocolonic anastomosis. Labs w/ normal ESR, CRP, WBC, HGB. She tells me symptoms began Friday with several episodes of nausea and vomiting. Last had BM on Friday. Typically has several loose BMs daily as her baseline. Didn't eat much on Friday b/c she was afraid of vomiting but had a small meal Friday evening. She then developed acute onset of diffuse abd cramping last evening that did not get better and came to the ER. Currently not having any abd pain, nausea, vomiting. She is passing flatus. She had a BM earlier today. No melena, hematochezia, fever, chills, CP, SOB, rashes, joint pain. Most recent colonoscopy: 02/07/20 Dr. Muse: normal TI, patent end-to-side ileo- colonic anastomosis, characterized by healthy appearing mucosa. - Normal mucosa in the entire examined colon. Biopsied. - The distal rectum and anal verge are normal on retroflexion view. A. Colon, random, biopsies: Fragments of colonic mucosa with focal minimal chronicity changes, otherwise no significant pathologic change. No active colitis or dysplasia is seen EGD 07/2022: - Z-line regular, 37 cm from the incisors. - Moderate Schatzki ring. This was auto-dilated with passage of the endoscope with mild mucosal disruption. - Normal stomach. - Normal duodenal bulb and second portion of the duodenum. - No specimens collected. MRI November 2020: Short segment approximately (2 cm) fibrostenotic disease at the ileocecal anastomosis, difficult to compare to the 2014 MR enterography but similar in configuration to the 10/17/2008 CT, with concern for active inflammation at this site. No other site of small bowel inflammation identified. No findings concerning for penetrating disease. Appearance of the distal sigmoid colon and upper rectum is concerning for active inflammation; further evaluation would require colonoscopy Allergies Allergy/AdvReac Type Severity Reaction Status Date / Time Penicillins Allergy Intermediate AMOXICILLIN Verified 08/21/22 01:35 - RASH sulfamethoxazole [Bactrim] Allergy Intermediate Rash Verified 08/21/22 01:35 trimethoprim [Bactrim] Allergy Intermediate Rash Verified 08/21/22 01:35 Home Medications Medication Instructions Recorded Confirmed Type albuterol sulfate 2.5 mg/3 mL 2.5 mg inhalation QID PRN 08/21/22 08/21/22 History (0.083 %) solution for nebulization Shortness Of Breath atorvastatin 10 mg tablet 10 mg PO HS 08/21/22 08/21/22 History cholecalciferol (vitamin D3) 50 50 mcg PO DAILY 08/21/22 08/21/22 History mcg (2,000 unit) capsule (Vitamin D3) escitalopram oxalate 10 mg tablet 10 mg PO DAILY 08/21/22 08/21/22 History levothyroxine 25 mcg tablet 25 mcg PO DAILYBB 08/21/22 08/21/22 History lisinopril 10 mg tablet 10 mg PO DAILY 08/21/22 08/21/22 History omeprazole 20 mg capsule,delayed 20 mg PO DAILYBB 08/21/22 08/21/22 History release sumatriptan succinate 6 mg/0.5 mL 6 mg subcut BID PRN Headache 08/21/22 08/21/22 History subcutaneous cartridge (refill) Patient History Medical History Crohn's disease High cholesterol Hypertension Social History Smoking Status: Current every day smoker Cigarettes Per Day: 1/3 pack per day; Do You Dip or Chew Tobacco: No; Tobacco Cessation Education Requested by Patient: No Hx Alcohol Use: Yes Hx Substance Use: No Preferred Language: [place] Communication Ability: Effective Cardiothoracic Anesthesia Technician Required: No Beliefs That Will Affect Care: None Current Living Situation: Spouse Other Information That Helps Us Care for You: No Feels Safe at Home: Yes Safety Concerns: Feels Safe At This Time Assistive Devices: None Review of Systems Review of Systems: All systems reviewed & are unremarkable except as noted in HPI & below Physical Exam Constitutional: well developed, well nourished and comfortable; no acute distress Eyes: Sclera anicteric, no conjunctival injection ENMT: moist mucous membranes, no pallor Neck: trachea midline supple Respiratory: normal respiratory effort, lungs clear to auscultation Cardiovascular: RRR, no murmur, no edema Gastrointestinal (Abdomen): normal bowel sounds, soft, nontender, no hepatosplenomegaly Inspection/Auscultation: abdomen not distended Skin: no rashes, warm and dry Neurologic: alert and oriented x 3, no obvious focal neuro deficit Psychiatric: normal mood and affect Results & Data ([facility]) Vital Signs (Past 12 Hours) Vital Signs Temp Pulse Pulse Resp BP BP Pulse Ox 08/21/22 07:52 36.6 C 63 16 102/65 98 08/21/22 06:20 36.5 C 56 L 16 133/77 97 08/21/22 06:20 08/21/22 04:26 64 16 154/88 H 97 08/21/22 02:30 18 128/82 98 08/21/22 02:58 64 18 154/94 H 94 08/21/22 02:10 64 12 96 08/21/22 02:00 63 14 96 08/21/22 01:50 59 L 17 96 08/21/22 01:46 154/85 H 08/21/22 01:46 61 21 97 08/21/22 01:41 73 23 96 08/21/22 01:30 65 21 08/21/22 01:20 61 19 08/21/22 01:10 61 19 08/21/22 01:00 63 19 96 08/21/22 00:50 70 19 97 08/21/22 00:42 174/107 H 08/21/22 00:42 70 21 97 08/21/22 00:41 77 17 08/21/22 00:52 67 18 176/107 H 96 08/21/22 00:32 36.5 C 87 16 173/113 H 97 O2 Del Method 08/21/22 07:52 Room Air 08/21/22 06:20 Room Air 08/21/22 06:20 Room Air 08/21/22 04:26 Room Air 08/21/22 02:30 Room Air 08/21/22 02:58 Room Air 08/21/22 02:10 08/21/22 02:00 08/21/22 01:50 08/21/22 01:46 08/21/22 01:46 08/21/22 01:41 08/21/22 01:30 08/21/22 01:20 08/21/22 01:10 08/21/22 01:00 08/21/22 00:50 08/21/22 00:42 08/21/22 00:42 08/21/22 00:41 08/21/22 00:52 Room Air 08/21/22 00:32 Room Air Laboratory Results 08/21/22 08/21/22 08/21/22 Range/Units 07:46 07:46 05:36 WBC 9.06 (4.8-10.8) K/ul RBC 4.16 L (4.20-5.40) M/uL Hgb 12.7 (12.0-16.0) g/dl Hct 37.4 (37.0-47.0) % MCV 89.9 (80.0-100.0) fL MCH 30.5 (25.0-34.0) pg MCHC 34.0 (32.0-36.0) g/dL RDW Std Deviation 48.2 H (36.4-46.3) fL RDW Coeff of Kathia 14.6 H (11.5-14.5) % Plt Count 264 (130-400) K/uL MPV 9.6 (9.4-12.4) fL Immature Gran % (Auto) 0.3 % Neut % (Auto) 66.3 % Lymph % (Auto) 23.8 % Greenlee % (Auto) 8.1 % Eos % (Auto) 1.1 % Baso % (Auto) 0.4 % Neut # (Auto) 6.00 (1.40-6.50) K/uL Lymph # (Auto) 2.16 (1.2-3.4) K/uL Greenlee # (Auto) 0.73 H (0.11-0.59) K/uL Eos # (Auto) 0.10 (0-0.50) K/uL Baso # (Auto) 0.04 (0-0.2) K/uL Immature Gran # (Auto) 0.03 (0.01-0.20) K/uL ESR (0-30) mm/hr Sodium 140 (136-145) mmol/L Potassium 3.9 (3.5-5.1) mmol/L Chloride 110 H (98-107) mmol/L Carbon Dioxide 24 (21-32) mmol/L Anion Gap 6 (3-11) BUN 16 (6-23) mg/dl Creatinine 0.68 (0.6-1.2) mg/dl Est Cr Clr Drug Dosing 77.9 ml/min Est GFR ( Amer) 111.8 ml/min Est GFR (Non-Af Amer) 96.4 ml/min BUN/Creatinine Ratio 23.5 H (10-20) Glucose 122 H (70-99(Fasting)) mg/dl Lactate 1.5 (0.4-2.0) mmol/L Calcium 8.5 (8.5-10.1) mg/dl Magnesium 1.9 (1.7-2.4) mg/dl Total Bilirubin (0.2-1.0) mg/dl AST (13-39) U/L ALT (7-52) U/L Alkaline Phosphatase (34-104) U/L Troponin I High Sens (0-14) pg/ml C-Reactive Protein (0-0.5) mg/dl Total Protein (6.0-8.3) gm/dl Albumin (3.4-5.0) gm/dl Globulin (2.5-4.0) gm/dl Albumin/Globulin Ratio (0.9-2) Lipase (11-82) U/L Urine Color Urine Appearance (Clear) Urine pH (4.5-7.5) Ur Specific [place] (1.000-1.030) Urine Protein (Negative) Urine Glucose (UA) (Negative) Urine Ketones (Negative) Urine Blood (Negative) Urine Nitrite (Negative) Urine Bilirubin (Negative) Urine Urobilinogen (Negative) Ur Leukocyte Esterase (Negative) Urine WBC (Auto) (0-5) /hpf Urine RBC (Auto) (0-4) /hpf U Hyaline Cast (Auto) (0-5) /lpf U Epithel Cells (Auto) (0-5) /lpf Urine Bacteria (Auto) (Negative) Calcium Oxalate Crystal (None Prsent) Urine Mucus (None Prsent) SARS-CoV-2, RNA, NAAT (NEGATIVE) 08/21/22 08/21/22 08/21/22 Range/Units 04:38 01:45 01:35 WBC (4.8-10.8) K/ul RBC (4.20-5.40) M/uL Hgb (12.0-16.0) g/dl Hct (37.0-47.0) % MCV (80.0-100.0) fL MCH (25.0-34.0) pg MCHC (32.0-36.0) g/dL RDW Std Deviation (36.4-46.3) fL RDW Coeff of Kathia (11.5-14.5) % Plt Count (130-400) K/uL MPV (9.4-12.4) fL Immature Gran % (Auto) % Neut % (Auto) % Lymph % (Auto) % Greenlee % (Auto) % Eos % (Auto) % Baso % (Auto) % Neut # (Auto) (1.40-6.50) K/uL Lymph # (Auto) (1.2-3.4) K/uL Greenlee # (Auto) (0.11-0.59) K/uL Eos # (Auto) (0-0.50) K/uL Baso # (Auto) (0-0.2) K/uL Immature Gran # (Auto) (0.01-0.20) K/uL ESR 8 (0-30) mm/hr Sodium (136-145) mmol/L Potassium (3.5-5.1) mmol/L Chloride (98-107) mmol/L Carbon Dioxide (21-32) mmol/L Anion Gap (3-11) BUN (6-23) mg/dl Creatinine (0.6-1.2) mg/dl Est Cr Clr Drug Dosing ml/min Est GFR ( Amer) ml/min Est GFR (Non-Af Amer) ml/min BUN/Creatinine Ratio (10-20) Glucose (70-99(Fasting)) mg/dl Lactate (0.4-2.0) mmol/L Calcium (8.5-10.1) mg/dl Magnesium (1.7-2.4) mg/dl Total Bilirubin (0.2-1.0) mg/dl AST (13-39) U/L ALT (7-52) U/L Alkaline Phosphatase (34-104) U/L Troponin I High Sens (0-14) pg/ml C-Reactive Protein (0-0.5) mg/dl Total Protein (6.0-8.3) gm/dl Albumin (3.4-5.0) gm/dl Globulin (2.5-4.0) gm/dl Albumin/Globulin Ratio (0.9-2) Lipase (11-82) U/L Urine Color Dark Yellow Urine Appearance Cloudy A (Clear) Urine pH 5.5 (4.5-7.5) Ur Specific [place] 1.032 H (1.000-1.030) Urine Protein Trace H (Negative) Urine Glucose (UA) Negative (Negative) Urine Ketones Trace H (Negative) Urine Blood Negative (Negative) Urine Nitrite Negative (Negative) Urine Bilirubin Negative (Negative) Urine Urobilinogen Negative (Negative) Ur Leukocyte Esterase 1+ H (Negative) Urine WBC (Auto) 10-30 H (0-5) /hpf Urine RBC (Auto) 0-4 (0-4) /hpf U Hyaline Cast (Auto) 0 (0-5) /lpf U Epithel Cells (Auto) >30 H (0-5) /lpf Urine Bacteria (Auto) 1+ H (Negative) Calcium Oxalate Crystal Present A (None Prsent) Urine Mucus Present A (None Prsent) SARS-CoV-2, RNA, NAAT NEGATIVE (NEGATIVE) 08/21/22 08/21/22 Range/Units 01:35 01:35 WBC 12.74 H (4.8-10.8) K/ul RBC 4.78 (4.20-5.40) M/uL Hgb 14.7 (12.0-16.0) g/dl Hct 42.7 (37.0-47.0) % MCV 89.3 (80.0-100.0) fL MCH 30.8 (25.0-34.0) pg MCHC 34.4 (32.0-36.0) g/dL RDW Std Deviation 47.5 H (36.4-46.3) fL RDW Coeff of Kathia 14.6 H (11.5-14.5) % Plt Count 313 (130-400) K/uL MPV 9.4 (9.4-12.4) fL Immature Gran % (Auto) 0.4 % Neut % (Auto) 68.9 % Lymph % (Auto) 22.9 % Greenlee % (Auto) 6.0 % Eos % (Auto) 1.1 % Baso % (Auto) 0.7 % Neut # (Auto) 8.77 H (1.40-6.50) K/uL Lymph # (Auto) 2.92 (1.2-3.4) K/uL Greenlee # (Auto) 0.77 H (0.11-0.59) K/uL Eos # (Auto) 0.14 (0-0.50) K/uL Baso # (Auto) 0.09 (0-0.2) K/uL Immature Gran # (Auto) 0.05 (0.01-0.20) K/uL ESR (0-30) mm/hr Sodium 138 (136-145) mmol/L Potassium 3.7 (3.5-5.1) mmol/L Chloride 106 (98-107) mmol/L Carbon Dioxide 23 (21-32) mmol/L Anion Gap 9 (3-11) BUN 18 (6-23) mg/dl Creatinine 0.72 (0.6-1.2) mg/dl Est Cr Clr Drug Dosing 73.5 ml/min Est GFR ( Amer) 107.0 ml/min Est GFR (Non-Af Amer) 92.3 ml/min BUN/Creatinine Ratio 25.0 H (10-20) Glucose 114 H (70-99(Fasting)) mg/dl Lactate (0.4-2.0) mmol/L Calcium 10.0 (8.5-10.1) mg/dl Magnesium (1.7-2.4) mg/dl Total Bilirubin 0.8 (0.2-1.0) mg/dl AST 20 (13-39) U/L ALT 17 (7-52) U/L Alkaline Phosphatase 80 (34-104) U/L Troponin I High Sens 2.5 (0-14) pg/ml C-Reactive Protein < 0.50 (0-0.5) mg/dl Total Protein 7.5 (6.0-8.3) gm/dl Albumin 4.7 (3.4-5.0) gm/dl Globulin 2.8 (2.5-4.0) gm/dl Albumin/Globulin Ratio 1.7 (0.9-2) Lipase 13 (11-82) U/L Urine Color Urine Appearance (Clear) Urine pH (4.5-7.5) Ur Specific [place] (1.000-1.030) Urine Protein (Negative) Urine Glucose (UA) (Negative) Urine Ketones (Negative) Urine Blood (Negative) Urine Nitrite (Negative) Urine Bilirubin (Negative) Urine Urobilinogen (Negative) Ur Leukocyte Esterase (Negative) Urine WBC (Auto) (0-5) /hpf Urine RBC (Auto) (0-4) /hpf U Hyaline Cast (Auto) (0-5) /lpf U Epithel Cells (Auto) (0-5) /lpf Urine Bacteria (Auto) (Negative) Calcium Oxalate Crystal (None Prsent) Urine Mucus (None Prsent) SARS-CoV-2, RNA, NAAT (NEGATIVE) Diagnostic Findings CTAP FINDINGS: Mild dependent changes seen within the lung bases. Punctate calcified granulomas within the right lung base. No pneumoperitoneum. No pneumatosis. No acute fractures identified. The liver, gallbladder, spleen, adrenal glands, and pancreas are unremarkable. The kidneys enhance normally. No hydronephrosis. The main portal vein is patent. No retroperitoneal lymphadenopathy. Normal caliber abdominal aorta. The bladder, uterus, and ovaries are within normal limits. Smal l amount of pelvic free fluid. Prior right hemicolectomy. Moderate bowel wall thickening at the ileocolic anastomosis as well is [id number] bowel wall thickening involving the majority ileal loops within the right lower quadrant which are also slightly distended and fluid-filled. Findings are consistent with a nonspecific enterocolitis with a probable partial small bowel obstruction due to the thickening at the ileocolic anastomosis. There is mild mesenteric edema within the right side of the abdomen adjacent to the thickened ileal loops. IMPRESSION: Prior right hemicolectomy. Moderate bowel wall thickening at the ileocolic anastomosis as well is [id number] bowel wall thickening involving the majority of the ileal loops within the right lower quadrant which are also slightly distended and fluid-filled. Findings are consistent with a nonspecific enterocolitis with a probable partial small bowel obstruction due to the thickening at the ileocolic anastomosis. (1) Abdominal pain Abdominal location: epigastric Qualified Code(s): R10.13 - Epigastric pain
--- NOTE | 2022-08-21 09:07 | History and Physical Report ---
DATE OF ADMISSION: 08/21/2022. CHIEF COMPLAINT: Abdominal pain. HISTORY OF PRESENT ILLNESS: A 57-year-old female with past medical history significant for hyperlipidemia, allergic rhinitis, emphysema, ongoing tobacco abuse, peripheral vascular disease, history of ascending aortic aneurysm, hypertension, history of Crohn's disease, status post partial colectomy in 1991. Currently not on any medications since last about 8-10 years as per the patient, irritable bowel syndrome, B12 deficiency, migraines, history of pernicious anemia, anxiety presents with abdominal pain. The patient says on Friday, she had some nausea, few episodes of vomiting and felt chills and burning micturition and last evening at 6:00 p.m. started developing abdominal pain, 8/10 in severity, some soreness in the back, came to the ER and with the pain medication, pain is improved. Since last couple of days, since last Friday she did not move her bowels, but denies any blood in the stools or black stools. Currently, denies any headache. No blurred visions, no earache, no runny nose, no sore throat. Appetite is okay. No difficulty swallowing. No chest pain, no shortness of breath, currently no nausea, resting comfortably and hemodynamically stable. ALLERGIES: AMOXICILLIN, BACTRIM, PENICILLINS. PAST MEDICAL HISTORY: As mentioned above. PAST SURGICAL HISTORY: Colonoscopies with biopsy, EGD, partial colectomy with anastomosis in 1991, removal of right wrist ganglion, appendectomy, small bowel endoscopy with biopsy. MEDICATIONS: The patient is on albuterol 2.5 inhalation q.i.d. p.r.n., atorvastatin 10 mg p.o. at bedtime, vitamin D 50 mcg p.o. daily, Lexapro 10 mg p.o. daily, levothyroxine 25 mcg p.o. daily, lisinopril 10 mg p.o. daily, omeprazole 20 mg p.o. daily, sumatriptan 6 mg subcutaneous b.i.d. p.r.n. FAMILY HISTORY: Significant for mother has diabetes; father has RI, paternal grandfather has aneurysm. SOCIAL HISTORY: . Smoked 3/4 pack a day for last 35 years. Alcohol occasional. No drug use. REVIEW OF SYSTEMS: As per HPI. Rest of the review of systems is negative. PHYSICAL EXAMINATION: GENERAL: The patient is of moderate build, not in acute distress. VITAL SIGNS: Temperature 36.5, pulse 64, respiratory rate 16, blood pressure 154/88, oxygen 97% on room air. HEENT: Pupils equal, round and reactive to light. Oral mucosa moist. NECK: No JVD. No neck masses. CARDIOVASCULAR: S1 and S2 heard. Regular rate and rhythm. No murmur, no gallop. RESPIRATORY SYSTEM: Normal AP diameter. No accessory muscle use. No wheezing or crackles. ABDOMEN: Soft, bowel sounds present. Mild diffuse discomfort. No guarding. No rigidity, no distention. CENTRAL NERVOUS SYSTEM: Cranial nerves II-XII grossly intact, nonfocal. EXTREMITIES: No edema, no erythema. LABORATORY DATA: WBC 12.7, hemoglobin 14.7, hematocrit 42.7, platelets 313. ESR 8. Sodium 138, potassium 3.7, chloride 106, CO2 of 23, BUN 18, creatinine 0.7, serum glucose 114, calcium 10, total bilirubin 0.8, AST 20, ALT 17, alkaline phosphatase 80. Troponin I high sensitivity 12.5. C-reactive protein less than 0.5. Lipase 13. Urinalysis, +1 leukocyte esterase, +1 bacteria. SARS-CoV-2 rapid test negative. IMAGING DATA: CT abdomen and pelvis with contrast, preliminary report right hemicolectomy changes with mild focal thickening of the anastomosis with mild upstream, prominent loops of ileum measuring up to 2.9 cm, mild fecalization noted with upstream loops.. Additional submucosal hyperenhancement within multiple upstream loops with focal thickening of the anastomosis. Findings may relate to enteritis, early bowel obstruction is not excluded. No other acute findings. ASSESSMENT AND PLAN: This is a 57-year-old female with history of Crohn's disease, who presents with abdominal pain. 1. Abdominal pain. The patient had episode of nausea, vomiting and burning micturition on Friday. UA was positive and also CAT scan showing possible enteritis and possible early bowel obstruction. We will keep in the hospital. We will keep her n.p.o., IV fluids, IV antiemetics and IV pain medication p.r.n., IV Rocephin for urinary tract infection. Follow the cultures and consult GI.Will follow final report of ct scan. 2. History of crohns disease, status post partial colectomy in 1991 .. The patient has no blood in the stools. She is no longer on any medications since last 8-10 years .Patient and she had colonoscopy in 01/2020, which was unremarkable. Further recommendations as per GI. 3. History of hyperlipidemia: Continue statin. 4. History of hypothyroidism: Continue Synthroid. 5. History of hypertension: Continue lisinopril. 6. Gastroesophageal reflux disease: Continue omeprazole. 7. Migraine: On sumatriptan p.r.n. 8. History of anxiety: Continue Lexapro. 9. Tobacco abuse: Needs counseling. 10. Deep venous thrombosis prophylaxis: On Lovenox. DISPOSITION: Closely monitor in the medical floor. PT/OT prior to discharge. Social service to help with discharge planning. Job ID: [id number] [employer]
--- NOTE | 2022-08-21 11:00 | Electrocardiogram Report ---
Test Reason : Blood Pressure : / mmHG Vent. 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
[2022-08-21] MEDS ORDERED: bisacodyL 5 MG TABEC PO ONE (11:30)
[2022-08-21] MEDS: POLYETHYLENE (MIRALAX) 17 GM PACK PO SCH ×2 (11:43→20:51)
--- NOTE | 2022-08-21 12:32 | XRay Report ---
KUB HISTORY: Partial small bowel obstruction. Follow-up. COMPARISON: Abdomen and pelvis CT 08/21/2022. FINDINGS: A few borderline dilated loops of small bowel again noted within the midabdomen. There is g as and stool seen throughout the nondistended colon. Suture material within the right side of the abd omen consistent with a prior ileocolonic anastomosis. There is residual contrast within the bladder.. No renal calculi. No ureteral calculi. No pneumoperitoneum or pneumatosis. IMPRESSION: A few borderline dilated loops of small bowel again noted within the midabdomen. This suggests a low- grade partial small bowel obstruction. ACT 112: Negative or not required by law. Electronically signed by: Baldev Cervantes M.D. 08/21/2022 12:31 PM
--- NOTE | 2022-08-21 14:57 | Hospitalist Progress Note ---
Date of Service August 21, 2022 Assessment & Plan (1) Crohn's disease: (2) Enteritis: (3) Partial small bowel obstruction: Plan This is a 57 yr old F who has a significant PMH of fibrostenotic Crohn's not currently on any medications, hx of right hemicolectomy, HLD, Emphysema, tobacco abuse, PVD, HTN who presented to ED with n/v and abd pain for the last 1-[address] a/P: Prior right hemicolectomy. Moderate bowel wall thickening at the ileocolic anastomosis as well is [id number] bowel wall thickening involving the majority of the ileal loops within the right lower quadrant which are also slightly distended and fluid-filled. Findings are consistent with a nonspecific enterocolitis with a probable partial small bowel obstruction due to the thickening at the ileocolic anastomosis. KUB:A few borderline dilated loops of small bowel again noted within the midabdomen. This suggests a low-grade partial small bowel obstruction. Partial SBO Crohns Enteritis pt admitted to med/surg xr confirms partial SBO she has since had a formed BM GI consulted appreciate their recs continue clear liquid diet, IVF repeat KUB in a.m. bowel regimen esr/crp normal - does not appear to be crohns flare stool for cdif ordered - formed stool so unable to process, cdiff unlikely Possible UTI urine and blood culture pending empiric IV rocephin HTN bp stable continue lisinopril HLD continue statin Tobacco use encourage cessation DVT ppx: lovenox Dispo: med/surg, likely d/c in next day or so FULL CODE PCP: ADELFO Lyons Pt was seen and examined in collaboration with Dr. Man. This note does not reflect a billable service as pt was admitted after 00:00 on 08/21/22. Admission and Anticipated Discharge Date Admission Date: August 21, 2022 Supervising Physician Co-Signing Physician Notes Patient is seen and examined at bedside. Abdominal pain much improved. Tolerating liquid diet. Denies any nausea, vomiting, diarrhea, chest pain, dyspnea. On exam patient is moderately built and nourished, no apparent distress, normocephalic atraumatic, EOMI, normal breath sounds, clear to auscultation, S1-S2, no murmur, no pedal edema, abdomen soft, nontender, normal bowel sounds, alert, awake, oriented, grossly no focal deficits. Patient is admitted for management of enteritis versus developing partial small bowel obstruction. Continue bowel regimen for constipation. Advance diet as tolerated. Appreciate GI input. Agree with IV Rocephin for now for possible UTI. Follow-up cultures. I personally reviewed the record. Patient is interviewed and examined at bedside. Patient's care is coordinated with Lisseth Hernandez PA-C. Please refer to the documentation above for details of patient's presentation and for discussion of other issues. Subjective Pt seen and examined in room 352-2. Follow up abd pain. She is sitting up in bed. Abd pain has resolved. States yesterday she developed crampy intermittent abd pain that started on L side of abd assoc with nausea. On friday she also had emesis x 3. Typically she has 3 loose BM day, last time she moved bowels was friday. Denies f/c/s, chest pain, sob, n/v/d. Denies melena, hematochezia. Prior crohns flare was many years ago that presented with LLQ constant abd pain with melena. Review of Systems Review of Systems: All systems reviewed & are unremarkable except as noted in HPI & below Physical Exam Physical Exam: Gen: WD/WN, NAD, A&O x3 HEENT: Normocephalic, atraumatic, conjunctivae moist, sclerae anicteric, mucous membranes moist. Lung: Clear to Auscultation bilaterally, no wheezes/rales/rhonchi Heart: Regular rate, regular rhythm, no murmurs, rubs, or gallops Abdomen: Soft, NT, ND +BS x 4 Extremities: No edema Skin: Warm, no rash, negative turgor. Results & Data Results & Data ([facility]) Vital Signs (Past 12 Hours) Vital Signs Temp Pulse Resp BP Pulse Ox O2 Del Method 08/21/22 07:52 36.6 C 63 16 102/65 98 Room Air 08/21/22 06:20 36.5 C 56 L 16 133/77 97 Room Air 08/21/22 06:20 Room Air 08/21/22 04:26 64 16 154/88 H 97 Room Air 08/21/22 02:58 64 18 154/94 H 94 Room Air Laboratory Results Short CBC 08/21/22 08/21/22 Range/Units 01:35 07:46 WBC 12.74 H 9.06 (4.8-10.8) K/ul Hgb 14.7 12.7 (12.0-16.0) g/dl Hct 42.7 37.4 (37.0-47.0) % Plt Count 313 264 (130-400) K/uL BMP 08/21/22 08/21/22 01:35 07:46 Sodium 138 140 Potassium 3.7 3.9 Chloride 106 110 H Carbon Dioxide 23 24 BUN 18 16 Creatinine 0.72 0.68 Glucose 114 H 122 H Calcium 10.0 8.5 Liver Function 08/21/22 Range/Units 01:35 Total Bilirubin 0.8 (0.2-1.0) mg/dl AST 20 (13-39) U/L ALT 17 (7-52) U/L Alkaline Phosphatase 80 (34-104) U/L Albumin 4.7 (3.4-5.0) gm/dl Urine 08/21/22 Range/Units 01:45 Urine Color Dark Yellow Urine Appearance Cloudy A (Clear) Urine pH 5.5 (4.5-7.5) Ur Specific [place] 1.032 H (1.000-1.030) Urine Protein Trace H (Negative) Urine Glucose (UA) Negative (Negative) Medications Administered Current Inpatient Medications Acetaminophen (Acetaminophen 325 Mg Tab) 650 mg PO Q4H PRN PRN Reason: pain/fever Stop: 09/20/22 06:19 Albuterol (Albuterol 0.083% Nebu Soln 3 Ml Vial) 2.5 mg INH QID PRN; Protocol PRN Reason: Shortness Of Breath Stop: 09/20/22 06:19 Atorvastatin Calcium (Atorvastatin 10 Mg Tab) 10 mg PO HS CATHERINE Stop: 09/20/22 20:59 Enoxaparin Sodium (Enoxaparin Inj 40 Mg/0.4 Ml Syr) 40 mg SQ QAM CATHERINE Stop: 09/20/22 08:59 Last Admin: 08/21/22 07:50 Dose: 40 mg Escitalopram Oxalate (Escitalopram Oxalate 10 Mg Tab) 10 mg PO DAILY CATHERINE Stop: 09/20/22 08:59 Last Admin: 08/21/22 07:51 Dose: 10 mg Hydromorphone HCl (Hydromorphone Inj 0.5 Mg/0.5 Ml Syr) 0.5 mg IV Q4H PRN PRN Reason: Pain Stop: 09/04/22 06:19 Dextrose/Sodium Chloride (D5w And 1/2nss) 1,000 mls @ 125 mls/hr IV .Q8H [facility] Stop: 09/20/22 06:19 Last Admin: 08/21/22 14:24 Dose: 125 mls/hr Famotidine 20 mg/ Syringe 5 mls @ 2.5 mls/min IV BID CATHERINE Stop: 09/20/22 08:59 Last Admin: 08/21/22 07:50 Dose: 2.5 mls/min Ceftriaxone Sodium 2,000 mg/ (Dextrose) 70 mls @ 100 mls/hr IV Q24H [facility]; Protocol Stop: 08/31/22 06:29 Last Infusion: 08/21/22 07:33 Dose: Infused Levothyroxine Sodium (Levothyroxine Sodium 25 Mcg Tablet) 25 mcg PO DAILYBB [facility] Stop: 09/20/22 06:29 Last Admin: 08/21/22 07:51 Dose: 25 mcg Lisinopril (Lisinopril 10 Mg Tab) 10 mg PO DAILY CATHERINE Stop: 09/20/22 08:59 Last Admin: 08/21/22 07:51 Dose: 10 mg Ondansetron HCl (Ondansetron Inj 2 Mg/Ml 2 Ml Vial) 4 mg IV Q6H PRN PRN Reason: Nausea Stop: 09/20/22 06:19 Pantoprazole Sodium (Pantoprazole 40 Mg Tab) 40 mg PO DAILYBB [facility] Stop: 09/20/22 06:29 Last Admin: 08/21/22 07:51 Dose: 40 mg Polyethylene Glycol (Polyethylene (Miralax) 17 Gm Pack) 17 gm PO BID CATHERINE Stop: 09/20/22 11:29 Last Admin: 08/21/22 11:43 Dose: 17 gm Sumatriptan Succinate (Sumatriptan Succinate 6 Mg/0.5 Ml Vial) 6 mg SQ BID PRN PRN Reason: Headache Stop: 09/20/22 06:23 Vitamin D (Cholecalciferol 1,000 Units 25 Mcg Tab) 2,000 units PO DAILY [facility] Stop: 09/20/22 08:59 Last Admin: 08/21/22 07:51 Dose: 2,000 units
[2022-08-21] MEDS: HYDROmorphone INJ 0.5 MG/0.5 ML SYR IV PRN (19:27)
[2022-08-21] MEDS: ATORVASTATIN 10 MG TAB PO SCH (20:51)
[2022-08-22] MEDS: HYDROmorphone INJ 0.5 MG/0.5 ML SYR IV PRN ×4 (01:23→19:21)
[2022-08-22] MEDS: D5W AND 1/2NSS 1,000 ML IV SCH ×2 (06:14→17:46)
[2022-08-22] MEDS: PANTOprazole 40 MG TAB PO SCH (06:32)
[2022-08-22 08:26] LABS: Hematocrit (blood only) 35.6 % (37.0-47.0); Hemoglobin 12.1 g/dl (12.0-16.0); Mean Corpuscular Hemoglobin 30.9 pg (25.0-34.0); Mean Corpuscular Volume 90.8 fL (80.0-100.0); Mean Platelet Volume 9.8 fL (9.4-12.4); Platelet Count 217 K/uL (130-400); RDW Coefficient of Variation 14.6 % (11.5-14.5); Red Blood Count 3.92 M/uL (4.20-5.40)
[2022-08-22 08:29] LABS: BUN Creatinine Ratio 9.8 (10-20); Calcium 8.3 mg/dl (8.5-10.1); Creatinine Clr Calc Pharmacy 86.8 ml/min; Est GFR (African American) 115.8 ml/min; Est GFR (Non-African American) 99.9 ml/min; Magnesium 1.9 mg/dl (1.7-2.4); Potassium 3.6 mmol/L (3.5-5.1)
[2022-08-22] MEDS: FAMOTIDINE 20 MG in SYRINGE 3 ML IV SCH ×2 (08:40→20:14)
[2022-08-22] MEDS: ESCITALOPRAM OXALATE 10 MG TAB PO SCH (08:40)
[2022-08-22] MEDS: cefTRIAXone SODIUM 2,000 MG in DEXTROSE 5% 50 ML IV SCH (08:40)
[2022-08-22] MEDS: lisinopril 10 MG TAB PO SCH (08:40)
[2022-08-22] MEDS: POLYETHYLENE (MIRALAX) 17 GM PACK PO SCH (08:40)
[2022-08-22] MEDS: ENOXAPARIN INJ 40 MG/0.4 ML SYR SQ SCH (08:41)
[2022-08-22] MEDS: CHOLECALCIFEROL 1,000 UNITS 25 MCG TAB PO SCH (08:41)
[2022-08-22] MEDS: LEVOTHYROXINE SODIUM 25 MCG TABLET PO SCH (09:33)
--- NOTE | 2022-08-22 09:35 | Gastroenterology Progress Note ---
Date of Service August 22, 2022 Assessment & Plan (1) Enteritis: (2) Abdominal pain: (3) Crohn's disease: Plan This is a 57 y/o female with h/o fibrostenotic Crohn's not currently on any meds since 2016, s/p remote right hemicolectomy, who presented w/ nausea, vomiting, abd pain and imaging suggestive of nonspecific enterocolitis w/ suspicion for pSBO w/ thickening at the ileocolonic anastomosis. Yesterday symptoms appeared to have resolved however they have recurred overnight and she is having worsening abd pain, w/ imaging suggestive of worsening small and large bowel distention, ? pSBO vs ileus. She is passing stool and flatus. On exam, well appearing tolerated liquid diet today but abd mildly distended, mild diffuse tenderness. - Make NPO - Insert NGT, to LIS - General surgery consult ordered - Please send stool for C diff when able - Monitor and document GI output - Start IV methylprednisolone 40 mg BID - I spoke with her nurse team with these recommendations - Daily KUB - Pending response to above, will have pt f/u with regular OP provider and obtain OP MRE and colonoscopy followed by discussion to evaluate need for medications (such as biologics) for her Crohn's. Thank you for allowing us to participate in the care of this patient. Please call with any acute changes, questions or concerns. Please see addendum below with additional recommendation from my supervising physician. Admission and Anticipated Discharge Date Admission Date: August 21, 2022 Supervising Physician Co-Signing Physician Notes Saw and evaluated the patient, unfortunately she does seem to have worsening bowel distention noted on her recent KUB. Thus we would recommend NG tube to low intermittent suction, continued IV hydration, continue broad-spectrum antibiotic use, initiation of steroid therapy with Solu-Medrol twice daily and a general surgery consultation. Subjective Patient seen and examined, chart reviewed. Pt was doing well until last evening when she developed recurrent abd cramping which is generalized; symptoms continue today. Was given some pain medication earlier which was helpful. Is stooling; had several loose/liquid brown BMs, including this AM. + passing flatus. She was tolerating a liquid diet this AM; no nausea, vomiting, benoit temesis, melena, hematochezia, fever, chills, CP, SOB. Review of Systems Review of Systems: All systems reviewed & are unremarkable except as noted in HPI & below Physical Exam Constitutional: well developed, well nourished and comfortable; no acute distress Neck: trachea midline Respiratory: normal respiratory effort, lungs clear to auscultation Cardiovascular: RRR, no murmur, no edema Gastrointestinal (Abdomen): Inspection/Auscultation: abdomen not distended normal BS x 4 quadrants, mild abd distention w/ generalized TTP, mild tympany Skin: no rashes, warm and dry Psychiatric: A+Ox3, euthymic affect Results & Data ([facility]) Vital Signs (Past 12 Hours) Vital Signs Temp Pulse Resp BP Pulse Ox O2 Del Method 08/22/22 07:47 36.5 C 53 L 16 137/82 94 Room Air Laboratory Results 08/22/22 08/22/22 08/21/22 Range/Units 07:35 07:35 Unknown WBC 5.10 (4.8-10.8) K/ul RBC 3.92 L (4.20-5.40) M/uL Hgb 12.1 (12.0-16.0) g/dl Hct 35.6 L (37.0-47.0) % MCV 90.8 (80.0-100.0) fL MCH 30.9 (25.0-34.0) pg MCHC 34.0 (32.0-36.0) g/dL RDW Std Deviation 49.0 H (36.4-46.3) fL RDW Coeff of Kathia 14.6 H (11.5-14.5) % Plt Count 217 (130-400) K/uL MPV 9.8 (9.4-12.4) fL Sodium 140 (136-145) mmol/L Potassium 3.6 (3.5-5.1) mmol/L Chloride 111 H (98-107) mmol/L Carbon Dioxide 26 (21-32) mmol/L Anion Gap 3 (3-11) BUN 6 (6-23) mg/dl Creatinine 0.61 (0.6-1.2) mg/dl Est Cr Clr Drug Dosing 86.8 ml/min Est GFR ( Amer) 115.8 ml/min Est GFR (Non-Af Amer) 99.9 ml/min BUN/Creatinine Ratio 9.8 L (10-20) Glucose 100 H (70-99(Fasting)) mg/dl Calcium 8.3 L (8.5-10.1) mg/dl Magnesium 1.9 (1.7-2.4) mg/dl Stl C. diff Tox B Gene TNP Diagnostic Findings KUB 08/22/22: FINDINGS: Persistent small bowel distention with dilated loops measuring up to 3.7 cm. Progressively worsened gaseous distention of the large bowel, now with loops measuring up to 8.5 cm. Surgical suture material within the abdominal right upper quadrant. No renal calculi. No ureteral calculi. No pneumoperitoneum or pneumatosis. No fracture. IMPRESSION: Mild progressive air-filled dilation of the large and small bowel suggestive of ileus versus partial small bowel obstruction. Continued follow-up recommended. KUB 08/21/22: HISTORY: Partial small bowel obstruction. Follow-up. COMPARISON: Abdomen and pelvis CT 08/21/2022. FINDINGS: A few borderline dilated loops of small bowel again noted within the midabdomen. There is gas and stool seen throughout the nondistended colon. Suture material within the right side of the abdomen consistent with a prior ileocolonic anastomosis. There is residual contrast within the bladder.. No renal calculi. No ureteral calculi. No pneumoperitoneum or pneumatosis. IMPRESSION: A few borderline dilated loops of small bowel again noted within the midabdomen. This suggests a low-grade partial small bowel obstruction. (1) Abdominal pain Abdominal location: epigastric Qualified Code(s): R10.13 - Epigastric pain
--- NOTE | 2022-08-22 10:28 | XRay Report ---
KUB HISTORY: Acute generalized abdominal pain with reported small bowel obstruction partial sbo COMPARISON: KUB and CT studies 08/21/2022 FINDINGS: Persistent small bowel distention with dilated loops measuring up to 3.7 cm. Progressively worsened gaseous distention of the large bowel, now with loops measuring up to 8.5 cm. Surgical sutur e material within the abdominal right upper quadrant. No renal calculi. No ureteral calculi. No pneu moperitoneum or pneumatosis. No fracture. IMPRESSION: Mild progressive air-filled dilation of the large and small bowel suggestive of ileus versus partial small bowel obstruction. Continued follow-up recommended. ACT 112: Negative or not required by law. The above report was generated using voice recognition software. It may contain grammatical, syntax o r spelling errors. Electronically signed by: Keyon Arevalo M.D. 08/22/2022 10:25 AM
--- NOTE | 2022-08-22 11:43 | Surgery Consultation ---
Date of Consultation August 22, 2022 History of Present Illness Attending Physician: Aiden Man MD Allergies Allergy/AdvReac Type Severity Reaction Status Date / Time Penicillins Allergy Intermediate AMOXICILLIN Verified 08/21/22 01:35 - RASH sulfamethoxazole [Bactrim] Allergy Intermediate Rash Verified 08/21/22 01:35 trimethoprim [Bactrim] Allergy Intermediate Rash Verified 08/21/22 01:35 Home Medications Medication Instructions Recorded Confirmed Type albuterol sulfate 2.5 mg/3 mL 2.5 mg inhalation QID PRN 08/21/22 08/21/22 H istory (0.083 %) solution for nebulization Shortness Of Breath atorvastatin 10 mg tablet 10 mg PO HS 08/21/22 08/21/22 History cholecalciferol (vitamin D3) 50 50 mcg PO DAILY 08/21/22 08/21/22 History mcg (2,000 unit) capsule (Vitamin D3) escitalopram oxalate 10 mg tablet 10 mg PO DAILY 08/21/22 08/21/22 History levothyroxine 25 mcg tablet 25 mcg PO DAILYBB 08/21/22 08/21/22 History lisinopril 10 mg tablet 10 mg PO DAILY 08/21/22 08/21/22 History omeprazole 20 mg capsule,delayed 20 mg PO DAILYBB 08/21/22 08/21/22 History release sumatriptan succinate 6 mg/0.5 mL 6 mg subcut BID PRN Headache 08/21/22 08/21/22 History subcutaneous cartridge (refill) Patient History Medical History Crohn's disease High cholesterol Hypertension Social History Smoking Status: Current every day smoker Cigarettes Per Day: 1/3 pack per day; Do You Dip or Chew Tobacco: No; Tobacco Cessation Education Requested by Patient: No Hx Alcohol Use: Yes Hx Substance Use: No Preferred Language: Bahraini Communication Ability: Effective Manager Payment Required: No Beliefs That Will Affect Care: None Current Living Situation: Spouse Other Information That Helps Us Care for You: No Feels Safe at Home: Yes Safety Concerns: Feels Safe At This Time Assistive Devices: None Results & Data ([facility]) Vital Signs (Past 12 Hours) Vital Signs Temp Pulse Resp BP Pulse Ox O2 Del Method 08/22/22 07:47 36.5 C 53 L 16 137/82 94 Room Air PG Care Time/CCT Total # of Minutes Spent Total Time Spent with Patient: Total time spent is greater than 50% in coordination of care (as documented) at patient's floor/unit and/or counseling patient: Coding
[2022-08-22] MEDS: methylPREDNISolone 40 MG in SYRINGE 0 ML IV SCH ×2 (12:16→20:14)
--- NOTE | 2022-08-22 12:43 | Surgery Consultation ---
Date of Consultation August 22, 2022 Assessment & Plan (1) Partial small bowel obstruction: (2) Crohn's disease: Patient currently has NG tube and place She has been placed on steroids IV She does have evidence of thickening and possible stricture of her ileocolic anastomosis Could be just scar tissue or recurrent disease We will continue with nonoperative management at the present time Depending on her progress may consider contrast via the NG tube at some point Depending on progress she may need some peripheral nutrition History of Present Illness Attending Physician: Aiden Man MD History of Present Illness 57-year-old female admitted to the hospital with nausea vomiting abdominal pain. She has a history of Crohn's disease and has not been on any medication since 2015 She apparently follows with Armida Greene but has not seen her for a while In the she did have a right hemicolectomy with ileocolic anastomosis and this appears to be where the Stricture/recurrent disease is located on her CAT scan-showing a thickened's site of small bowel in this area She has a history of Schatzki ring and she is a smoker Allergies Allergy/AdvReac Type Severity Reaction Status Date / Time Penicillins Allergy Intermediate AMOXICILLIN Verified 08/21/22 01:35 - RASH sulfamethoxazole [Bactrim] Allergy Intermediate Rash Verified 08/21/22 01:35 trimethoprim [Bactrim] Allergy Intermediate Rash Verified 08/21/22 01:35 Home Medications Medication Instructions Recorded Confirmed Type albuterol sulfate 2.5 mg/3 mL 2.5 mg inhalation QID PRN 08/21/22 08/21/22 History (0.083 %) solution for nebulization Shortness Of Breath atorvastatin 10 mg tablet 10 mg PO HS 08/21/22 08/21/22 History cholecalciferol (vitamin D3) 50 50 mcg PO DAILY 08/21/22 08/21/22 History mcg (2,000 unit) capsule (Vitamin D3) escitalopram oxalate 10 mg tablet 10 mg PO DAILY 08/21/22 08/21/22 History levothyroxine 25 mcg tablet 25 mcg PO DAILYBB 08/21/22 08/21/22 History lisinopril 10 mg tablet 10 mg PO DAILY 08/21/22 08/21/22 History omeprazole 20 mg capsule,delayed 20 mg PO DAILYBB 08/21/22 08/21/22 History release sumatriptan succinate 6 mg/0.5 mL 6 mg subcut BID PRN Headache 08/21/22 08/21/22 History subcutaneous cartridge (refill) Patient History Medical History Crohn's disease High cholesterol Hypertension Social History Smoking Status: Current every day smoker Cigarettes Per Day: 1/3 pack per day; Do You Dip or Chew Tobacco: No; Tobacco Cessation Education Requested by Patient: No Hx Alcohol Use: Yes Hx Substance Use: No Preferred Language: Ukrainian Communication Ability: Effective Pattern Changer And Repairer Required: No Beliefs That Will Affect Care: None Current Living Situation: Spouse Other Information That Helps Us Care for You: No Feels Safe at Home: Yes Safety Concerns: Feels Safe At This Time Assistive Devices: None Review of Systems Review of Systems: All systems reviewed & are unremarkable except as noted in HPI & below Physical Exam Physical Exam: Patient is currently in her bed awake and alert in no distress She just had her NG tube placed She is not having significant abdominal pain at the present time Her abdomen is mildly distended but soft with minimal tenderness and no peritoneal irritation Decreased bowel sounds Constitutional: well developed; no acute distress Eyes: + anicteric sclerae Respiratory: normal respiratory effort; no respiratory distress Cardiovascular: Rate/Rhythm: regular rate Gastrointestinal (Abdomen): See above Musculoskeletal: Patient does have clubbing Skin: no rashes, warm and dry Neurologic: awake Psychiatric: Orientation: alert Results & Data ([facility]) Vital Signs (Past 12 Hours) Vital Signs Temp Pulse Resp BP Pulse Ox O2 Del Method 08/22/22 07:47 36.5 C 53 L 16 137/82 94 Room Air Laboratory Results I did review her laboratories Diagnostic Findings I did review her CAT scan report and films as well as KUBs PG Care Time/CCT Total # of Minutes Spent Total Time Spent with Patient: Total time spent is greater than 50% in coordination of care (as documented) at patient's floor/unit and/or counseling patient: Coding Level of Care Code INP/OBS CONSULT LVL 3, 45 MIN Diagnoses Partial small bowel obstruction K56.600 Crohn's disease K50.90
--- NOTE | 2022-08-22 13:09 | XRay Report ---
SINGLE VIEW CHEST CLINICAL HISTORY: Enteric tube placement FINDINGS: An AP, portable, upright chest radiograph is compared to study dated 01/30/2017. Correlation is made with chest CT dated 04/16/2007. The lung apices are excluded. An enteric tube has been placed . The tip projects below the diaphragm over the mid stomach. The cardiomediastinal silhouette is top normal for projection noting atherosclerotic calcification of the thoracic aorta. Chronic interstitia l thickening is similar to previous. Mild atelectasis is seen at the lung bases. The lungs and pleura l spaces are otherwise clear. No pneumothorax is seen. The skeletal structures are osteopenic. The [place] thorax is grossly intact. IMPRESSION: 1. An enteric tube has been placed as above. 2. The lungs are clear. ACT 112: Negative or not required by law. Electronically signed by: Tj Kimball M.D. 08/22/2022 1:08 PM
[2022-08-22] MEDS: ACETAMINOPHEN 1,000 MG/100 ML VIAL IV PRN (13:23)
--- NOTE | 2022-08-22 14:21 | Hospitalist Progress Note ---
Date of Service August 22, 2022 Assessment & Plan (1) Crohn's disease: (2) Enteritis: (3) Partial small bowel obstruction: Plan This is a 57 yr old F who has a significant PMH of fibrostenotic Crohn's not currently on any medications, hx of right hemicolectomy, HLD, Emphysema, tobacco abuse, PVD, HTN who presented to ED with n/v and abd pain for the last 1-[address] a/P: Prior right hemicolectomy. Moderate bowel wall thickening at the ileocolic anastomosis as well is [id number] bowel wall thickening involving the majority of the ileal loops within the right lower quadrant which are also slightly distended and fluid-filled. Findings are consistent with a nonspecific enterocolitis with a probable partial small bowel obstruction due to the thickening at the ileocolic anastomosis. KUB:A few borderline dilated loops of small bowel again noted within the midabdomen. This suggests a low-grade partial small bowel obstruction. Partial SBO H/o ileocolonic anastomosis Crohns Enteritis Admitted to med/surg KUB confirms partial SBO -> repeat KUB today with mild progressive air-filled dilation of the large and small bowel suggestive of ileus versus partial small bowel obstruction GI, surgery on board - due to worsening symptoms of diarrhea, abd cramping overnight as well as e/o nonspecific enterocolitis on imaging, made NPO, NG tube placed, started on solu-medrol 40mg BID Continue Rocephin, adding Flagyl to broaden coverage given worsening sx and enterocolitis on CT abd/pelvis Blood culture without growth Daily KUB stool for cdiff re-ordered GI recommends OP MRE and colonoscopy and discussion of need for biologics with regular provider Possible UTI -> urine culture with grown of normal skin junito, no sensitivities to follow HTN bp stable continue lisinopril HLD continue statin Tobacco use encourage cessation DVT ppx: lovenox Dispo: med/surg FULL CODE PCP: ADELFO Lyons A total of 50 minutes were spent with greater than 50% of that time face to face with the patient, personally reviewing all current laboratories, imaging studies, past medication reconciliation, outpatient chart review, and discussion with specialists to collaborate care for the patient with attending and utilization of translation services. Please see attending documentation for corrections and/or additions. Admission and Anticipated Discharge Date Admission Date: August 21, 2022 Supervising Physician Co-Signing Physician Notes Patient is seen and examined at bedside. Still has abdominal pain. Also reports having bowel movement secondary to MiraLAX. KUB suggestive of partial small bowel obstruction. Denies any nausea, vomiting, diarrhea, chest pain, dyspnea. On exam patient is moderately built and nourished, no apparent distress, normocephalic atraumatic, EOMI, normal breath sounds, clear to auscultation, S1-S2, no murmur, no pedal edema, abdomen soft, nontender, normal bowel sounds, alert, awake, oriented, grossly no focal deficits. Patient is admitted for management of enteritis and Partial small bowel obstruction. Bowel rest, NG tube, IV fluids. Appreciate GI, surgery input. Continue IV Rocephin, added Flagyl. Urine culture negative for possible UTI. Also started on IV steroids for Crohn's disease. Daily KUB. Stool studies to rule out C. difficile if recurrence of diarrhea. I personally reviewed the record. Patient is interviewed and examined at bedside. Patient's care is coordinated with Nilda Salomon PA-C. Please refer to the documentation above for details of patient's presentation and for discussion of other issues. Subjective Seen and examined in 352 bed 2. Having some episodes of loose stool overnight with some intermittent abdominal cramping that has continued into this morning. Is passing gas. Advance to liquid diet this morning which she is tolerating without any nausea or vomiting. Denies any other new symptoms overnight. No fever, chills, lightheadedness, chest pain, shortness of breath, dysuria. Review of Systems Review of Systems: At least ten systems reviewed and negative except as noted in the HPI. Physical Exam Physical Exam: Gen: WD/WN, NAD, resting in bed, A&Ox3 HEENT: Normocephalic, atraumatic, conjunctivae moist, sclerae anicteric, mucous membranes moist Lung: Clear to Auscultation bilaterally, no wheezes/rales/rhonchi Heart: Regular rate, regular rhythm, no murmurs, rubs, or gallops Abdomen: Soft with mild distention, NT, hypoactive bowel sounds Extremities: no edema Skin: Warm, no rash Results & Data Results & Data ([facility]) Vital Signs (Past 12 Hours) Vital Signs Temp Pulse Resp BP Pulse Ox O2 Del Method 08/22/22 07:47 36.5 C 53 L 16 137/82 94 Room Air Laboratory Results Short CBC 08/22/22 Range/Units 07:35 WBC 5.10 (4.8-10.8) K/ul Hgb 12.1 (12.0-16.0) g/dl Hct 35.6 L (37.0-47.0) % Plt Count 217 (130-400) K/uL BMP 08/22/22 07:35 Sodium 140 Potassium 3.6 Chloride 111 H Carbon Dioxide 26 BUN 6 Creatinine 0.61 Glucose 100 H Calcium 8.3 L Diagnostic Findings Abdomen/Pelvis CT 08/21/22 01:[address] WITH IV CONTRAST CT DOSE: 284.14 mGy.cm HISTORY: Epigastric abdominal pain. TECHNIQUE: Multiaxial CT images of the abdomen and pelvis were performed following the use of intravenous contrast. A dose lowering technique was utilized adhering to the principles of ALARA. COMPARISON STUDY: Abdomen and pelvis CT 08/12/2011. FINDINGS: Mild dependent changes seen within the lung bases. Punctate calcified granulomas within the right lung base. No pneumoperitoneum. No pneumatosis. No acute fractures identified. The liver, gallbladder, spleen, adrenal glands, and pancreas are unremarkable. The kidneys enhance normally. No hydronephrosis. The main portal vein is patent. No retroperitoneal lymphadenopathy. Normal caliber abdominal aorta. The bladder, uterus, and ovaries are within normal limits. Small amount of pelvic free fluid. Prior right hemicolectomy. Moderate bowel wall thickening at the ileocolic anastomosis as well is [id number] bowel wall thickening involving the majority ileal loops within the right lower quadrant which are also slightly distended and fluid-filled. Findings are consistent with a nonspecific enterocolitis with a probable partial small bowel obstruction due to the thickening at the ileocolic anastomosis. There is mild mesenteric edema within the right side of the abdomen adjacent to the thickened ileal loops. IMPRESSION: Prior right hemicolectomy. Moderate bowel wall thickening at the ileocolic anastomosis as well is [id number] bowel wall thickening involving the majority of the ileal loops within the right lower quadrant which are also slightly distended and fluid-filled. Findings are consistent with a nonspecific enterocolitis with a probable partial small bowel obstruction due to the thickening at the ileocolic anastomosis. ACT 112: Negative or not required by law. Electronically signed by: Baldev Cervantes M.D. 08/21/2022 7:37 AM KUB X-Ray 08/21/22 11:24 KUB HISTORY: Partial small bowel obstruction. Follow-up. COMPARISON: Abdomen and pelvis CT 08/21/2022. FINDINGS: A few borderline dilated loops of small bowel again noted within the midabdomen. There is gas and stool seen throughout the nondistended colon. Suture material within the right side of the abdomen consistent with a prior ileocolonic anastomosis. There is residual contrast within the bladder.. No renal calculi. No ureteral calculi. No pneumoperitoneum or pneumatosis. IMPRESSION: A few borderline dilated loops of small bowel again noted within the midabdomen. This suggests a low-grade partial small bowel obstruction. ACT 112: Negative or not required by law. Electronically signed by: Baldev Cervantes M.D. 08/21/2022 12:31 PM KUB X-Ray 08/22/22 08:00 KUB HISTORY: Acute generalized abdominal pain with reported small bowel obstruction partial sbo COMPARISON: KUB and CT studies 08/21/2022 FINDINGS: Persistent small bowel distention with dilated loops measuring up to 3.7 cm. Progressively worsened gaseous distention of the large bowel, now with loops measuring up to 8.5 cm. Surgical suture material within the abdominal right upper quadrant. No renal calculi. No ureteral calculi. No pneumoperitoneum or pneumatosis. No fracture. IMPRESSION: Mild progressive air-filled dilation of the large and small bowel suggestive of ileus versus partial small bowel obstruction. Continued follow-up recommended. ACT 112: Negative or not required by law. The above report was generated using voice recognition software. It may contain grammatical, syntax or spelling errors. Electronically signed by: Keyon Arevalo M.D. 08/22/2022 10:25 AM Chest X-Ray 08/22/22 12:12 SINGLE VIEW CHEST CLINICAL HISTORY: Enteric tube placement FINDINGS: An AP, portable, upright chest radiograph is compared to study dated 01/30/2017. Correlation is made with chest CT dated 04/16/2007. The lung apices are excluded. An enteric tube has been placed. The tip projects below the diaphragm over the mid stomach. The cardiomediastinal silhouette is top normal for projection noting atherosclerotic calcification of the thoracic aorta. Chronic interstitial thickening is similar to previous. Mild atelectasis is seen at the lung bases. The lungs and pleural spaces are otherwise clear. No pneumothorax is seen. The skeletal structures are osteopenic. The bony thorax is grossly intact. IMPRESSION: 1. An enteric tube has been placed as above. 2. The lungs are clear. ACT 112: Negative or not required by law. Electronically signed by: Tj Kimball M.D. 08/22/2022 1:08 PM
[2022-08-22] MEDS: metroNIDAZOLE 500 MG/100 ML BAG IV SCH ×2 (16:20→23:20)
[2022-08-22] MEDS: ATORVASTATIN 10 MG TAB PO SCH (20:14)
[2022-08-22] MEDS: LORazepam 2 MG/1 ML VIAL IV PRN (20:25)
[2022-08-23] MEDS: HYDROmorphone INJ 0.5 MG/0.5 ML SYR IV PRN ×5 (00:59→20:52)
[2022-08-23] MEDS: LEVOTHYROXINE SODIUM 25 MCG TABLET PO SCH (05:41)
[2022-08-23] MEDS: PANTOprazole 40 MG TAB PO SCH (05:41)
[2022-08-23] MEDS: metroNIDAZOLE 500 MG/100 ML BAG IV SCH ×3 (05:42→21:57)
--- NOTE | 2022-08-23 07:05 | Surgery Progress Note ---
Date of Service August 23, 2022 Assessment & Plan (1) Partial small bowel obstruction: Plan: Patient with stricture/recurrent Crohn's disease at the ileocolic anastomosis Begun on steroids IV yesterday NG tube placed yesterday We will continue with current plan of nonoperative treatment At some point may consider contrast study with contrast via NG tube-would hold off for now Dr. Lopez covering over the weekend Admission and Anticipated Discharge Date Admission Date: August 21, 2022 Subjective Patient awake and alert with NG tube in place She says she is feels somewhat better She did receive some pain medication during the evening Mild to moderate NG output Physical Exam Physical Exam: She is awake and alert in no distress Her abdomen is relatively soft and she does have bowel sounds Results & Data ([facility]) Vital Signs (Past 12 Hours) Vital Signs Temp Pulse Resp BP Pulse Ox O2 Del Method 08/22/22 19:30 Room Air 08/22/22 20:09 37.0 C 48 L 16 158/90 H 96 Room Air PG Care Time/CCT Total # of Minutes Spent Total Time Spent with Patient: Total time spent is greater than 50% in coordination of care (as documented) at patient's floor/unit and/or counseling patient: Coding Level of Care Code 24142 SUB INP/OBS CARE 08/07MIN Diagnoses Partial small bowel obstruction K56.600
[2022-08-23] MEDS: cefTRIAXone SODIUM 2,000 MG in DEXTROSE 5% 50 ML IV SCH (07:19)
[2022-08-23 08:46] LABS: Hematocrit (blood only) 35.3 % (37.0-47.0); Hemoglobin 12.1 g/dl (12.0-16.0); Mean Corpuscular Hemoglobin 30.6 pg (25.0-34.0); Mean Corpuscular Hgb Conc 34.3 g/dL (32.0-36.0); Mean Corpuscular Volume 89.1 fL (80.0-100.0); Platelet Count 251 K/uL (130-400); RDW Standard Deviation 45.5 fL (36.4-46.3); Red Blood Count 3.96 M/uL (4.20-5.40); White Blood Count 12.97 K/ul (4.8-10.8)
[2022-08-23] MEDS: ESCITALOPRAM OXALATE 10 MG TAB PO SCH (08:46)
[2022-08-23] MEDS: lisinopril 10 MG TAB PO SCH (08:47)
[2022-08-23] MEDS: CHOLECALCIFEROL 1,000 UNITS 25 MCG TAB PO SCH (08:47)
[2022-08-23] MEDS: methylPREDNISolone 40 MG in SYRINGE 0 ML IV SCH ×2 (08:47→20:53)
[2022-08-23] MEDS: FAMOTIDINE 20 MG in SYRINGE 3 ML IV SCH ×2 (08:48→20:52)
[2022-08-23] MEDS: D5W AND 1/2NSS 1,000 ML IV SCH ×2 (08:48→21:57)
[2022-08-23] MEDS: ENOXAPARIN INJ 40 MG/0.4 ML SYR SQ SCH (08:48)
[2022-08-23 08:56] LABS: Albumin Globulin Ratio 1.4 (0.9-2); Albumin Level 3.8 gm/dl (3.4-5.0); BUN Creatinine Ratio 11.9 (10-20); Bilirubin,Total 0.4 mg/dl (0.2-1.0); Creatinine Clr Calc Pharmacy 89.7 ml/min; Est GFR (African American) 117.1 ml/min; Globulin 2.7 gm/dl (2.5-4.0); Potassium 3.7 mmol/L (3.5-5.1); Total Protein 6.5 gm/dl (6.0-8.3)
--- NOTE | 2022-08-23 09:21 | XRay Report ---
KUB HISTORY: Acute generalized abdominal pain SBO COMPARISON: KUB 08/22/2022 FINDINGS: Distal tip of enteric tube projects over the mid gastric body. Gaseous distention of the la rge bowel measures up to 7.2 cm. Surgical suture material within the abdominal right upper quadrant. There is decreased gaseous distention of the and small bowel compared to the prior study. No renal c alculi. No ureteral calculi. No pneumoperitoneum or pneumatosis. No fracture. IMPRESSION: 1. Status post placement of an enteric tube, distal tip within the stomach. 2. There is decreased gaseous distention of the small bowel with persistent large bowel distention. F indings are suggestive of improving ileus. ACT 112: Negative or not required by law. The above report was generated using voice recognition software. It may contain grammatical, syntax o r spelling errors. Electronically signed by: Keyon Arevalo M.D. 08/23/2022 9:20 AM
[2022-08-23] MEDS: ACETAMINOPHEN 1,000 MG/100 ML VIAL IV PRN (09:30)
--- NOTE | 2022-08-23 10:37 | Gastroenterology Progress Note ---
Date of Service August 23, 2022 Assessment & Plan (1) Partial small bowel obstruction: (2) Crohn's disease: (3) Enteritis: Plan This is a 57 y/o female with h/o fibrostenotic Crohn's not currently on any meds since 2016, s/p remote right hemicolectomy, who presented w/ nausea, vomiting, abd pain and imaging suggestive of nonspecific enterocolitis w/ suspicion for pSBO w/ thickening at the ileocolonic anastomosis. initially symptoms improved however worsened yesterday w/ worsening bowel distention clinically and on KUB. She was started on IV steroids, NGT placed, and continued on IVF, IV ABX. Today feels better, less abd pain and distention. No stool but is passing flatus. On exam, well appearing, abd w/ mild distention, nontender. Labs are stable. KUB reviewed - decreased distention of the SB and improving ileus, large bowel dilated up to 7.2 cm (yesterday was 8.5 cm). Question what contribution of presentation is related to underlying fibrostenotic disease vs active IBD. - Continue NPO for now - Continue NG, to LIS - Continue broad spectrum ABX - Continue hydration with IVF - Continue IV steroids BID - Daily KUB - General surgery consult appreciated - Please send stool for C diff when able - Monitor and document GI output - Pending response to above, will have pt f/u with regular OP provider and obtain OP MRE and colonoscopy followed by discussion to evaluate need for medications (such as biologics) for her Crohn's. Thank you for allowing us to participate in the care of this patient. Please call with any acute changes, questions or concerns. Please see addendum below with additional recommendation from my supervising physician. Admission and Anticipated Discharge Date Admission Date: August 21, 2022 Supervising Physician Co-Signing Physician Notes Saw and evaluated the patient, she notes that she has a sore throat but that her abdomen does feel much better today. Normal x-ray also seems to show improvement. Recommendations Remove the NG-tube today. Continue with daily KUB Continue with IV hydration Continue with IV steroid use If patient doing well tomorrow may consider a full liquid Subjective Patient seen and examined, chart reviewed. Pt feels improved abd pain overnight; rates it as an intermittent 4/10, crampy. No stool but is passing flatus. No n/v. Had small amt of output in NGT canister. Denies fever, chills, hematemesis, melena, hematochezia, CP, SOB Review of Systems Review of Systems: All systems reviewed & are unremarkable except as noted in HPI & below Physical Exam Constitutional: well developed, well nourished and comfortable; no acute distress Eyes: Sclera anicteric, no conjunctival injection ENMT: moist mucous membranes, no pallor Neck: supple Respiratory: normal respiratory effort, lungs clear to auscultation Cardiovascular: RRR Gastrointestinal (Abdomen): abd mildly distended, improving bowel sounds, nontender at present Skin: no rashes, warm and dry Neurologic: alert and oriented x 3 Results & Data ([facility]) Vital Signs (Past 12 Hours) Vital Signs Temp Pulse Resp BP Pulse Ox O2 Del Method 08/23/22 07:05 36.4 C L 52 L 16 136/78 94 Room Air Laboratory Results 08/23/22 08/23/22 Range/Units 07:58 07:58 WBC 12.97 H (4.8-10.8) K/ul RBC 3.96 L (4.20-5.40) M/uL Hgb 12.1 (12.0-16.0) g/dl Hct 35.3 L (37.0-47.0) % MCV 89.1 (80.0-100.0) fL MCH 30.6 (25.0-34.0) pg MCHC 34.3 (32.0-36.0) g/dL RDW Std Deviation 45.5 (36.4-46.3) fL RDW Coeff of Kathia 14.0 (11.5-14.5) % Plt Count 251 (130-400) K/uL MPV 10.0 (9.4-12.4) fL Sodium 140 (136-145) mmol/L Potassium 3.7 (3.5-5.1) mmol/L Chloride 106 (98-107) mmol/L Carbon Dioxide 26 (21-32) mmol/L Anion Gap 8 (3-11) BUN 7 (6-23) mg/dl Creatinine 0.59 L (0.6-1.2) mg/dl Est Cr Clr Drug Dosing 89.7 ml/min Est GFR ( Amer) 117.1 ml/min Est GFR (Non-Af Amer) 101.0 ml/min BUN/Creatinine Ratio 11.9 (10-20) Glucose 138 H (70-99(Fasting)) mg/dl Calcium 9.0 (8.5-10.1) mg/dl Total Bilirubin 0.4 (0.2-1.0) mg/dl AST 14 (13-39) U/L ALT 11 (7-52) U/L Alkaline Phosphatase 71 (34-104) U/L Total Protein 6.5 (6.0-8.3) gm/dl Albumin 3.8 (3.4-5.0) gm/dl Globulin 2.7 (2.5-4.0) gm/dl Albumin/Globulin Ratio 1.4 (0.9-2) Diagnostic Findings KUB 08/23/22: FINDINGS: Distal tip of enteric tube projects over the mid gastric body. Gaseous distention of the large bowel measures up to 7.2 cm. Surgical suture material within the abdominal right upper quadrant. There is decreased gaseous distention of the and small bowel compared to the prior study. No renal calculi. No ureteral calculi. No pneumoperitoneum or pneumatosis. No fracture. IMPRESSION: 1. Status post placement of an enteric tube, distal tip within the stomach. 2. There is decreased gaseous distention of the small bowel with persistent large bowel distention. Findings are suggestive of improving ileus.
--- NOTE | 2022-08-23 15:39 | Hospitalist Progress Note ---
Date of Service August 23, 2022 Assessment & Plan (1) Crohn's disease: (2) Enteritis: (3) Partial small bowel obstruction: Plan This is a 57 yr old F who has a significant PMH of fibrostenotic Crohn's not currently on any medications, hx of right hemicolectomy, HLD, Emphysema, tobacco abuse, PVD, HTN who presented to ED with n/v and abd pain for the last 1-[address] a/P: Prior right hemicolectomy. Moderate bowel wall thickening at the ileocolic anastomosis as well is [id number] bowel wall thickening involving the majority of the ileal loops within the right lower quadrant which are also slightly distended and fluid-filled. Findings are consistent with a nonspecific enterocolitis with a probable partial small bowel obstruction due to the thickening at the ileocolic anastomosis. KUB:A few borderline dilated loops of small bowel again noted within the midabdomen. This suggests a low-grade partial small bowel obstruction. Partial SBO H/o ileocolonic anastomosis Crohns Enteritis Admitted to med/surg KUB confirms partial SBO -> repeat KUB today with mild progressive air-filled dilation of the large and small bowel suggestive of ileus versus partial small bowel obstruction GI, surgery on board - due to worsening symptoms of diarrhea, abd cramping overnight as well as e/o nonspecific enterocolitis on imaging, made NPO, NG tube placed, started on solu-medrol 40mg BID Continue Rocephin, adding Flagyl to broaden coverage given worsening sx and enterocolitis on CT abd/pelvis Per GI - plan to continue IV abx, steroids over the weekend Blood culture without growth Daily KUB - decreased gaseous distention of the small bowel with persistent large bowel distention. Findings are suggestive of improving ileus Stool for cdiff re-ordered however no bowel movement GI recommends OP MRE and colonoscopy and discussion of need for biologics with regular provider Possible UTI -> urine culture with grown of normal skin junito, no sensitivities to follow HTN bp stable continue lisinopril HLD continue statin Tobacco use encourage cessation DVT ppx: lovenox Dispo: med/surg FULL CODE PCP: ADELFO Lyons A total of 35 minutes were spent with greater than 50% of that time face to face with the patient, personally reviewing all current laboratories, imaging studies, past medication reconciliation, outpatient chart review, and discussion with specialists to collaborate care for the patient with attending and utilization of translation services. Please see attending documentation for corrections and/or additions. Admission and Anticipated Discharge Date Admission Date: August 21, 2022 Supervising Physician Co-Signing Physician Notes Patient is seen and examined at bedside. Abdominal pain much improved today. + Flatus but no bowel movement today. NG tube in place. Denies any nausea, vomiting, diarrhea, chest pain, dyspnea. On exam patient is moderately built and nourished, no apparent distress, normocephalic atraumatic, EOMI, normal breath sounds, clear to auscultation, S1-S2, no murmur, no pedal edema, abdomen soft, nontender, decreased bowel sounds, alert, awake, oriented, grossly no focal deficits. Patient is admitted for management of enteritis and Partial small bowel obstruction. Bowel rest, NG tube, IV fluids. Appreciate GI, surgery input. Continue IV Rocephin, added Flagyl. Urine culture negative for possible UTI. Also started on IV steroids for Crohn's disease. Daily KUB. Stool studies to rule out C. difficile if recurrence of diarrhea. Continue current management. I personally reviewed the record. Patient is interviewed and examined at bedside. Patient's care is coordinated with Nilda Salomon PA-C. Please refer to the documentation above for details of patient's presentation and for discussion of other issues. Subjective Patient seen and examined in 452 bed 2. Has NG tube in place. Feeling better today, with resolution of abdominal cramping but still a 3 out of 10 discomfort. Denies any nausea or vomiting. No additional episodes of diarrhea. Denies any fever, chills, lightheadedness, chest pain, shortness of breath, dysuria. GI and general surgery following. Review of Systems Review of Systems: At least ten systems reviewed and negative except as noted in the HPI. Physical Exam Physical Exam: Gen: WD/WN, NAD, sitting in bed, A&Ox3, NG tube in place HEENT: Normocephalic, atraumatic, conjunctivae moist, sclerae anicteric, mucous membranes moist Lung: Clear to Auscultation bilaterally, no wheezes/rales/rhonchi Heart: Regular rate, regular rhythm, no murmurs, rubs, or gallops Abdomen: Soft, mild distension, improving BS, non-tender Extremities: no edema Skin: Warm, no rash Results & Data Results & Data ([facility]) Vital Signs (Past 12 Hours) Vital Signs Temp Pulse Resp BP Pulse Ox O2 Del Method 08/23/22 14:33 36.8 C 48 L 16 139/84 95 Room Air 08/23/22 07:05 36.4 C L 52 L 16 136/78 94 Room Air Laboratory Results Short CBC 08/23/22 Range/Units 07:58 WBC 12.97 H (4.8-10.8) K/ul Hgb 12.1 (12.0-16.0) g/dl Hct 35.3 L (37.0-47.0) % Plt Count 251 (130-400) K/uL BMP 08/23/22 07:58 Sodium 140 Potassium 3.7 Chloride 106 Carbon Dioxide 26 BUN 7 Creatinine 0.59 L Glucose 138 H Calcium 9.0 Liver Function 08/23/22 Range/Units 07:58 Total Bilirubin 0.4 (0.2-1.0) mg/dl AST 14 (13-39) U/L ALT 11 (7-52) U/L Alkaline Phosphatase 71 (34-104) U/L Albumin 3.8 (3.4-5.0) gm/dl Diagnostic Findings Abdomen/Pelvis CT 08/21/22 01:[address] WITH IV CONTRAST CT DOSE: 284.14 mGy.cm HISTORY: Epigastric abdominal pain. TECHNIQUE: Multiaxial CT images of the abdomen and pelvis were performed following the use of intravenous contrast. A dose lowering technique was utilized adhering to the principles of ALARA. COMPARISON STUDY: Abdomen and pelvis CT 08/12/2011. FINDINGS: Mild dependent changes seen within the lung bases. Punctate calcified granulomas within the right lung base. No pneumoperitoneum. No pneumatosis. No acute fractures identified. The liver, gallbladder, spleen, adrenal glands, and pancreas are unremarkable. The kidneys enhance normally. No hydronephrosis. The main portal vein is patent. No retroperitoneal lymphadenopathy. Normal caliber abdominal aorta. The bladder, uterus, and ovaries are within normal limits. Small amount of pelvic free fluid. Prior right hemicolectomy. Moderate bowel wall thickening at the ileocolic anastomosis as well is [id number] bowel wall thickening involving the majority ileal loops within the right lower quadrant which are also slightly distended and fluid-filled. Findings are consistent with a nonspecific enterocolitis with a probable partial small bowel obstruction due to the thickening at the ileocolic anastomosis. There is mild mesenteric edema within the right side of the abdomen adjacent to the thickened ileal loops. IMPRESSION: Prior right hemicolectomy. Moderate bowel wall thickening at the ileocolic anast omosis as well is akgl-tu-[id number] bowel wall thickening involving the majority of the ileal loops within the right lower quadrant which are also slightly distended and fluid-filled. Findings are consistent with a nonspecific enterocolitis with a probable partial small bowel obstruction due to the thickening at the ileocolic anastomosis. ACT 112: Negative or not required by law. Electronically signed by: Baldev Cervantes M.D. 08/21/2022 7:37 AM KUB X-Ray 08/21/22 11:24 KUB HISTORY: Partial small bowel obstruction. Follow-up. COMPARISON: Abdomen and pelvis CT 08/21/2022. FINDINGS: A few borderline dilated loops of small bowel again noted within the midabdomen. There is gas and stool seen throughout the nondistended colon. Suture material within the right side of the abdomen consistent with a prior ileocolonic anastomosis. There is residual contrast within the bladder.. No renal calculi. No ureteral calculi. No pneumoperitoneum or pneumatosis. IMPRESSION: A few borderline dilated loops of small bowel again noted within the midabdomen. This suggests a low-grade partial small bowel obstruction. ACT 112: Negative or not required by law. Electronically signed by: Baldev Cervantes M.D. 08/21/2022 12:31 PM KUB X-Ray 08/22/22 08:00 KUB HISTORY: Acute generalized abdominal pain with reported small bowel obstruction partial sbo COMPARISON: KUB and CT studies 08/21/2022 FINDINGS: Persistent small bowel distention with dilated loops measuring up to 3.7 cm. Progressively worsened gaseous distention of the large bowel, now with loops measuring up to 8.5 cm. Surgical suture material within the abdominal right upper quadrant. No renal calculi. No ureteral calculi. No pneumoperitoneum or pneumatosis. No fracture. IMPRESSION: Mild progressive air-filled dilation of the large and small bowel suggestive of ileus versus partial small bowel obstruction. Continued follow-up recommended. ACT 112: Negative or not required by law. The above report was generated using voice recognition software. It may contain grammatical, syntax or spelling errors. Electronically signed by: Keyon Arevalo M.D. 08/22/2022 10:25 AM Chest X-Ray 08/22/22 12:12 SINGLE VIEW CHEST CLINICAL HISTORY: Enteric tube placement FINDINGS: An AP, portable, upright chest radiograph is compared to study dated 01/30/2017. Correlation is made with chest CT dated 04/16/2007. The lung apices are excluded. An enteric tube has been placed. The tip projects below the diaphragm over the mid stomach. The cardiomediastinal silhouette is top normal for projection noting atherosclerotic calcification of the thoracic aorta. Chronic interstitial thickening is similar to previous. Mild atelectasis is seen at the lung bases. The lungs and pleural spaces are otherwise clear. No pneumothorax is seen. The skeletal structures are osteopenic. The bony thorax is grossly intact. IMPRESSION: 1. An enteric tube has been placed as above. 2. The lungs are clear. ACT 112: Negative or not required by law. Electronically signed by: Tj Kimball M.D. 08/22/2022 1:08 PM KUB X-Ray 08/23/22 07:00 KUB HISTORY: Acute generalized abdominal pain SBO COMPARISON: KUB 08/22/2022 FINDINGS: Distal tip of enteric tube projects over the mid gastric body. Gaseous distention of the large bowel measures up to 7.2 cm. Surgical suture material within the abdominal right upper quadrant. There is decreased gaseous distention of the and small bowel compared to the prior study. No renal calculi. No ureteral calculi. No pneumoperitoneum or pneumatosis. No fracture. IMPRESSION: 1. Status post placement of an enteric tube, distal tip within the stomach. 2. There is decreased gaseous distention of the small bowel with persistent large bowel distention. Findings are suggestive of improving ileus. ACT 112: Negative or not required by law. The above report was generated using voice recognition software. It may contain grammatical, syntax or spelling errors. Electronically signed by: Keyon Arevalo M.D. 08/23/2022 9:20 AM
[2022-08-23] MEDS: LORazepam 2 MG/1 ML VIAL IV PRN (20:53)
[2022-08-23] MEDS: ATORVASTATIN 10 MG TAB PO SCH (20:53)
[2022-08-24] MEDS: HYDROmorphone INJ 0.5 MG/0.5 ML SYR IV PRN ×3 (02:06→12:23)
[2022-08-24] MEDS: LEVOTHYROXINE SODIUM 25 MCG TABLET PO SCH (05:52)
[2022-08-24] MEDS: metroNIDAZOLE 500 MG/100 ML BAG IV SCH ×3 (05:53→23:33)
[2022-08-24] MEDS: PANTOprazole 40 MG TAB PO SCH (05:56)
[2022-08-24 07:26] LABS: Hematocrit (blood only) 33.1 % (37.0-47.0); Hemoglobin 11.5 g/dl (12.0-16.0); Mean Corpuscular Hemoglobin 30.6 pg (25.0-34.0); Mean Corpuscular Hgb Conc 34.7 g/dL (32.0-36.0); Mean Platelet Volume 10.4 fL (9.4-12.4); Platelet Count 245 K/uL (130-400); RDW Coefficient of Variation 14.3 % (11.5-14.5); RDW Standard Deviation 45.8 fL (36.4-46.3); Red Blood Count 3.76 M/uL (4.20-5.40); White Blood Count 7.04 K/ul (4.8-10.8)
[2022-08-24 07:35] LABS: BUN Creatinine Ratio 16.9 (10-20); Creatinine Clr Calc Pharmacy 81.5 ml/min; Est GFR (African American) 113.4 ml/min; Est GFR (Non-African American) 97.9 ml/min; Potassium 3.9 mmol/L (3.5-5.1)
--- NOTE | 2022-08-24 07:41 | Gastroenterology Progress Note ---
Date of Service August 24, 2022 Assessment & Plan (1) Partial small bowel obstruction: (2) Crohn's disease: (3) Enteritis: Plan This is a 57 y/o female with h/o fibrostenotic Crohn's not currently on any meds since 2016, s/p remote right hemicolectomy, who presented w/ nausea, vomiting, abd pain and imaging suggestive of nonspecific enterocolitis w/ suspicion for pSBO w/ thickening at the ileocolonic anastomosis. initially symptoms improved however worsened yesterday w/ worsening bowel distention clinically and on KUB. She was started on IV steroids, NGT placed, and continued on IVF, IV ABX. Today feels better, less abd pain and distention. No stool but is passing flatus. On exam, well appearing, abd w/ mild distention, nontender. Labs are stable. KUB reviewed - decreased distention of the SB and improving ileus, large bowel dilated up to 7.2 cm (yesterday was 8.5 cm). Question what contribution of presentation is related to underlying fibrostenotic disease vs active IBD. - Continue NPO for now - Continue NG, to gravity this morning, feeling better can try liquids for lunch prior to pulling the NG tube, if tolerates that then could pull the NG tube. - Continue broad spectrum ABX - Continue hydration with IVF - Continue IV steroids BID - Daily KUB - General surgery consult appreciated - Please send stool for C diff when able - Monitor and document GI output - Pending response to above, will have pt f/u with regular OP provider and obtain OP MRE and colonoscopy followed by discussion to evaluate need for medications (such as biologics) for her Crohn's. Thank you for allowing us to participate in the care of this patient. Please call with any acute changes, questions or concerns. Please see addendum below with additional recommendation from my supervising physician. Admission and Anticipated Discharge Date Admission Date: August 21, 2022 Subjective Doing better this morning, walking around the room, NG tube to gravity Physical Exam Physical Exam: Awake alert [place] x3, moving all extremities, no neurologic abnormalities Hypoactive but present bowel sounds soft abdomen nontender Results & Data ([facility]) Vital Signs (Past 12 Hours) Vital Signs Temp Pulse Resp BP Pulse Ox O2 Del Method 08/24/22 07:16 36.5 C 82 16 151/78 H 95 Room Air 08/23/22 19:47 36.4 C L 46 L 16 126/77 96 Room Air
[2022-08-24] MEDS: methylPREDNISolone 40 MG in SYRINGE 0 ML IV SCH ×2 (08:12→20:46)
[2022-08-24] MEDS: CHOLECALCIFEROL 1,000 UNITS 25 MCG TAB PO SCH (08:13)
[2022-08-24] MEDS: lisinopril 10 MG TAB PO SCH (08:13)
[2022-08-24] MEDS: ENOXAPARIN INJ 40 MG/0.4 ML SYR SQ SCH (08:13)
[2022-08-24] MEDS: ESCITALOPRAM OXALATE 10 MG TAB PO SCH (08:13)
[2022-08-24] MEDS: FAMOTIDINE 20 MG in SYRINGE 3 ML IV SCH (08:16)
[2022-08-24] MEDS: cefTRIAXone SODIUM 2,000 MG in DEXTROSE 5% 50 ML IV SCH (08:28)
--- NOTE | 2022-08-24 09:16 | XRay Report ---
[facility] CLINICAL HISTORY: Small bowel obstruction. COMPARISON STUDY: CT of the abdomen and pelvis August 2022 and KUB August 23, 2022. FINDINGS: Tip of nasogastric tube is within the body of the stomach. Postoperative findings from righ t hemicolectomy are noted. Mild gaseous distention of the colon persists. No dilated loops of small b owel are identified. A few prominent right lower quadrant small bowel loops measure up to 2.8 cm in c aliber. IMPRESSION: 1. A few prominent loops of small bowel within the right lower quadrant without convincing evidence for a residual bowel obstruction. 2. Nasogastric tube in place. ACT 112: Negative or not required by law. Electronically signed by: Alfonzo Moss M.D. 08/24/2022 9:14 AM
[2022-08-24] MEDS: D5W AND 1/2NSS 1,000 ML IV SCH ×2 (10:16→11:23)
--- NOTE | 2022-08-24 14:22 | Surgery Progress Note ---
Date of Service August 24, 2022 Assessment & Plan (1) Partial small bowel obstruction: Plan: Partial small bowel obstruction: Plan: Patient with stricture/recurrent Crohn's disease at the ileocolic anastomosis NG tube per GI recommend. We will continue with current plan of nonoperative treatment At some point may consider contrast study with contrast via NG tube-would hold off for now will F/U Admission and Anticipated Discharge Date Admission Date: August 21, 2022 Subjective Doing better this morning, walking around the room, NG tube to gravity 08/24/2022 2:20 PM F/U P SBO, pt doing better, passed some gas, no abdominal pain, no fever, Physical Exam Constitutional: WD/WN, vitals as above Eyes: PERRL, conjunctivae normal, anicteric sclerae Respiratory: normal respiratory effort, lungs clear to auscultation Cardiovascular: RRR, no murmur, no edema Gastrointestinal (Abdomen): soft, NT, ND, BS + Neurologic: patellar DTR's 2+ bilat, sensation intact Psychiatric: A+Ox3, euthymic affect Results & Data ([facility]) Vital Signs (Past 12 Hours) Vital Signs Temp Pulse Resp BP Pulse Ox O2 Del Method 08/24/22 14:11 36.3 C L 45 L 16 158/81 H 95 Room Air 08/24/22 07:16 36.5 C 82 16 151/78 H 95 Room Air Laboratory Results Abnormal lab results 08/24/22 08/24/22 Range/Units 06:22 06:22 RBC 3.76 L (4.20-5.40) M/uL Hgb 11.5 L (12.0-16.0) g/dl Hct 33.1 L (37.0-47.0) % Glucose 123 H (70-99(Fasting)) mg/dl Diagnostic Findings KUB CLINICAL HISTORY: Small bowel obstruction. COMPARISON STUDY: CT of the abdomen and pelvis August 2022 and KUB August 23, 2022. FINDINGS: Tip of nasogastric tube is within the body of the stomach. Postoperative findings from right hemicolectomy are noted. Mild gaseous distention of the colon persists. No dilated loops of small bowel are identified. A few prominent right lower quadrant small bowel loops measure up to 2.8 cm in caliber. IMPRESSION: 1. A few prominent loops of small bowel within the right lower quadrant without convincing evidence for a residual bowel obstruction. 2. Nasogastric tube in place.
[2022-08-24] MEDS ORDERED: FAMOTIDINE 20 MG in SYRINGE 3 ML IV PRN (17:37)
--- NOTE | 2022-08-24 17:39 | Hospitalist Progress Note ---
Date of Service August 24, 2022 Assessment & Plan (1) Crohn's disease: (2) Enteritis: (3) Partial small bowel obstruction: Plan Patient is a 57 yr female with H/O Fibrostenotic Crohn's not currently on any medications, hx of right hemicolectomy, HLD, Emphysema, tobacco abuse, PVD, HTN who presented to ED with n/v and abd pain for the last 1-2 days. Partial small bowel obstruction Crohn's disease Enteritis H/o ileocolonic anastomosis --CT a/P: Prior right hemicolectomy. Moderate bowel wall thickening at the ileocolic anastomosis as well is orus-eo-mmdalxma bowel wall thickening involving the majority of the ileal loops within the right lower quadrant which are also slightly distended and fluid-filled. Findings are consistent with a nonspecific enterocolitis with a probable partial small bowel obstruction due to the thickening at the ileocolic anastomosis. --KUB:A few borderline dilated loops of small bowel again noted within the midabdomen. This suggests a low-grade partial small bowel obstruction. -- Blood cultures: Negative to date --Appreciate GI, surgery input: Continue empiric antibiotics, Solu-Medrol NG tube discontinued Clear liquid diet for now Patient needs outpatient MRE and colonoscopy and discussion of need for biologics with regular GI provider Obtain stool studies to rule out C. difficile if recurrence of diarrhea Suspected UTI Urine culture negative UTI ruled out HTN continue lisinopril HLD continue statin Tobacco use encourage cessation DVT Px: Lovenox SQ Code Status FULL CODE Admission and Anticipated Discharge Date Admission Date: August 21, 2022 Subjective Patient is seen and examined at bedside Had bowel movement overnight Denies any nausea, vomiting, chest pain, dyspnea, abdominal pain Reports having some sore throat secondary to NG tube No other complaints Review of Systems Review of Systems: All systems reviewed & are unremarkable except as noted in Subjective Physical Exam Physical Exam: Physical Exam: Vitals signs as noted above General Appearance:Moderately built and nourished, no apparent distress Head: normocephalic, Atraumatic Eyes: normal inspection, EOMI Neck: supple, Trachea midline Respiratory/Chest: Normal breath sounds, CTA, No accessory muscle use Cardiovascular: S1, S2, No murmur Abdomen/GI:Soft, Non tender, Bowel sounds present Extremities/Musculoskeletal:normal inspection, no edema Neurologic/Psych:AAOX3, grossly no focal neurological deficits Skin: normal color, warm Results & Data Results & Data ([facility]) Vital Signs (Past 12 Hours) Vital Signs Temp Pulse Resp BP Pulse Ox O2 Del Method 08/24/22 14:11 36.3 C L 45 L 16 158/81 H 95 Room Air 08/24/22 07:16 36.5 C 82 16 151/78 H 95 Room Air Laboratory Results Short CBC 08/24/22 Range/Units 06:22 WBC 7.04 (4.8-10.8) K/ul Hgb 11.5 L (12.0-16.0) g/dl Hct 33.1 L (37.0-47.0) % Plt Count 245 (130-400) K/uL BMP 08/24/22 06:22 Sodium 138 Potassium 3.9 Chloride 105 Carbon Dioxide 26 BUN 11 Creatinine 0.65 Glucose 123 H Calcium 9.0
[2022-08-24] MEDS: ATORVASTATIN 10 MG TAB PO SCH (20:46)
[2022-08-25] MEDS: PANTOprazole 40 MG TAB PO SCH (05:39)
[2022-08-25] MEDS: LEVOTHYROXINE SODIUM 25 MCG TABLET PO SCH (05:39)
[2022-08-25] MEDS: metroNIDAZOLE 500 MG/100 ML BAG IV SCH ×3 (06:20→23:34)
[2022-08-25 07:08] LABS: Hematocrit (blood only) 36.2 % (37.0-47.0); Hemoglobin 12.3 g/dl (12.0-16.0); Mean Corpuscular Hemoglobin 30.4 pg (25.0-34.0); Mean Corpuscular Volume 89.4 fL (80.0-100.0); Mean Platelet Volume 10.3 fL (9.4-12.4); Platelet Count 242 K/uL (130-400); RDW Coefficient of Variation 14.2 % (11.5-14.5); RDW Standard Deviation 46.3 fL (36.4-46.3); Red Blood Count 4.05 M/uL (4.20-5.40)
[2022-08-25 07:31] LABS: BUN Creatinine Ratio 16.9 (10-20); Calcium 9.5 mg/dl (8.5-10.1); Creatinine Clr Calc Pharmacy 81.5 ml/min; Est GFR (African American) 113.4 ml/min; Est GFR (Non-African American) 97.9 ml/min; Potassium 3.7 mmol/L (3.5-5.1)
[2022-08-25] MEDS: cefTRIAXone SODIUM 2,000 MG in DEXTROSE 5% 50 ML IV SCH (08:17)
[2022-08-25] MEDS: CHOLECALCIFEROL 1,000 UNITS 25 MCG TAB PO SCH (08:18)
[2022-08-25] MEDS: ESCITALOPRAM OXALATE 10 MG TAB PO SCH (08:18)
[2022-08-25] MEDS: ENOXAPARIN INJ 40 MG/0.4 ML SYR SQ SCH (08:18)
[2022-08-25] MEDS: lisinopril 10 MG TAB PO SCH (08:18)
[2022-08-25] MEDS: methylPREDNISolone 40 MG in SYRINGE 0 ML IV SCH ×2 (08:19→20:46)
--- NOTE | 2022-08-25 09:13 | XRay Report ---
KUB CLINICAL HISTORY: Small bowel obstruction. COMPARISON STUDY: CT of the abdomen and pelvis August 21, 2022 and KUB August 24, 2022. FINDINGS: Postoperative findings right hemicolectomy are noted. The nasogastric tube has been removed . Small bowel loops measure up to 2.8 cm in caliber. There is no radiographic evidence for a bowel ob struction. No free air is noted on supine exam. IMPRESSION: No radiographic evidence for a residual small bowel obstruction. ACT 112: Negative or not required by law. Electronically signed by: Alfonzo Moss M.D. 08/25/2022 9:12 AM
--- NOTE | 2022-08-25 09:57 | Gastroenterology Progress Note ---
Date of Service August 25, 2022 Assessment & Plan (1) Partial small bowel obstruction: (2) Crohn's disease: (3) Enteritis: Plan This is a 57 y/o female with h/o fibrostenotic Crohn's not currently on any meds since 2016, s/p remote right hemicolectomy, who presented w/ nausea, vomiting, abd pain and imaging suggestive of nonspecific enterocolitis w/ suspicion for pSBO w/ thickening at the ileocolonic anastomosis. initially symptoms improved however worsened yesterday w/ worsening bowel distention clinically and on KUB. She was started on IV steroids, NGT placed, and continued on IVF, IV ABX. Today feels better, less abd pain and distention. No stool but is passing flatus. On exam, well appearing, abd w/ mild distention, nontender. Labs are stable. KUB reviewed - decreased distention of the SB and improving ileus, large bowel dilated up to 7.2 cm (yesterday was 8.5 cm). Question what contribution of presentation is related to underlying fibrostenotic disease vs active IBD. - Advance to full liquids - Continue hydration with IVF - Continue IV steroids BID - Monitor and document GI output - Pending response to above, will have pt f/u with regular OP provider and obtain OP MRE and colonoscopy followed by discussion to evaluate need for medications (such as biologics) for her Crohn's. Thank you for allowing us to participate in the care of this patient. Please call with any acute changes, questions or concerns. Please see addendum below with additional recommendation from my supervising physician. Admission and Anticipated Discharge Date Admission Date: August 21, 2022 Subjective Feels well, NGT out, tolerating liquids Physical Exam Physical Exam: Awake alert [place] x3, moving all extremities, no neurologic abnormalities Hypoactive but present bowel sounds soft abdomen nontender Results & Data ([facility]) Vital Signs (Past 12 Hours) Vital Signs Temp Pulse Resp BP Pulse Ox O2 Del Method 08/25/22 07:40 36.3 C L 62 16 178/95 H 97 Room Air 08/24/22 21:58 43 L 153/86 H
--- NOTE | 2022-08-25 14:52 | Surgery Progress Note ---
Date of Service August 25, 2022 Assessment & Plan (1) Partial small bowel obstruction: Plan: Partial small bowel obstruction: Plan: Patient with stricture/recurrent Crohn's disease at the ileocolic anastomosis NG tube per GI recommend. We will continue with current plan of nonoperative treatment At some point may consider contrast study with contrast via NG tube-would hold off for now will F/U 08/25/2022 2:53Pm Dr. Lopez SBO resolved full liquid diet will F/U, Admission and Anticipated Discharge Date Admission Date: August 21, 2022 Supervising Physician Co-Signing Physician Notes Patient is seen and examined at bedside. Abdominal pain much improved today. + Flatus but no bowel movement today. NG tube in place. Denies any nausea, vomiting, diarrhea, chest pain, dyspnea. On exam patient is moderately built and nourished, no apparent distress, normocephalic atraumatic, EOMI, normal breath sounds, clear to auscultation, S1-S2, no murmur, no pedal edema, abdomen soft, nontender, decreased bowel sounds, alert, awake, oriented, grossly no focal deficits. Patient is admitted for management of enteritis and Partial small bowel obstruction. Bowel rest, NG tube, IV fluids. Appreciate GI, surgery input. Continue IV Rocephin, added Flagyl. Urine culture negative for possible UTI. Also started on IV steroids for Crohn's disease. Daily KUB. Stool studies to rule out C. difficile if recurrence of diarrhea. Continue current management. I personally reviewed the record. Patient is interviewed and examined at bedside. Patient's care is coordinated with Nilda Salomon PA-C. Please refer to the documentation above for details of patient's presentation and for discussion of other issues. Subjective Feels well, NGT out, tolerating liquids 08/25/2022 2:51Pm Dr. Lopez doing fine, tolerated diet, no fever, passed gas, Physical Exam Constitutional: WD/WN, vitals as above Eyes: PERRL, conjunctivae normal, anicteric sclerae Respiratory: normal respiratory effort, lungs clear to auscultation Cardiovascular: RRR, no murmur, no edema Gastrointestinal (Abdomen): soft, NT, Nd, BS +, Neurologic: patellar DTR's 2+ bilat, sensation intact Psychiatric: A+Ox3, euthymic affect Results & Data ([facility]) Vital Signs (Past 12 Hours) Vital Signs Temp Pulse Resp BP Pulse Ox O2 Del Method 08/25/22 14:38 36.8 C 57 L 16 164/97 H 96 Room Air 08/25/22 07:40 36.3 C L 62 16 178/95 H 97 Room Air Laboratory Results Abnormal lab results 08/25/22 08/25/22 Range/Units 06:14 06:14 RBC 4.05 L (4.20-5.40) M/uL Hct 36.2 L (37.0-47.0) % Glucose 115 H (70-99(Fasting)) mg/dl Diagnostic Findings KUB CLINICAL HISTORY: Small bowel obstruction. COMPARISON STUDY: CT of the abdomen and pelvis August 21, 2022 and KUB August 24, 2022. FINDINGS: Postoperative findings right hemicolectomy are noted. The nasogastric tube has been removed. Small bowel loops measure up to 2.8 cm in caliber. There is no radiographic evidence for a bowel obstruction. No free air is noted on supine exam. IMPRESSION: No radiographic evidence for a residual small bowel obstruction.
[2022-08-25] MEDS ORDERED: lisinopril 10 MG TAB PO ONE (15:25)
--- NOTE | 2022-08-25 17:03 | Hospitalist Progress Note ---
Date of Service August 25, 2022 Assessment & Plan (1) Crohn's disease: (2) Enteritis: (3) Partial small bowel obstruction: Plan Patient is a 57 yr female with H/O Fibrostenotic Crohn's not currently on any medications, hx of right hemicolectomy, HLD, Emphysema, tobacco abuse, PVD, HTN who presented to ED with n/v and abd pain for the last 1-2 days. Partial small bowel obstruction Crohn's disease Enteritis H/o ileocolonic anastomosis --CT a/P: Prior right hemicolectomy. Moderate bowel wall thickening at the ileocolic anastomosis as well is [id number] bowel wall thickening involving the majority of the ileal loops within the right lower quadrant which are also slightly distended and fluid-filled. Findings are consistent with a nonspecific enterocolitis with a probable partial small bowel obstruction due to the thickening at the ileocolic anastomosis. --KUB:A few borderline dilated loops of small bowel again noted within the midabdomen. This suggests a low-grade partial small bowel obstruction. -- Blood cultures: Negative to date --Appreciate GI, surgery input: Continue empiric antibiotics, Solu-Medrol NG tube discontinued Patient needs outpatient MRE and colonoscopy and discussion of need for biologics with regular GI provider Obtain stool studies to rule out C. difficile if recurrence of diarrhea Advance to low fiber diet Suspected UTI Urine culture negative UTI ruled out HTN continue lisinopril Increase lisinopril to 20 mg daily HLD continue statin Tobacco use encourage cessation DVT Px: Lovenox SQ Code Status FULL CODE Admission and Anticipated Discharge Date Admission Date: August 21, 2022 Subjective Patient is seen and examined at bedside States feeling well today Had multiple bowel movements overnight and this morning Sore throat resolved Tolerating diet Denies any nausea, vomiting, chest pain, dyspnea, abdominal pain BP elevated Review of Systems Review of Systems: All systems reviewed & are unremarkable except as noted in Subjective Physical Exam Physical Exam: Physical Exam: Vitals signs as noted above General Appearance:Moderately built and nourished, no apparent distress Head: normocephalic, Atraumatic Eyes: normal inspection, EOMI Neck: supple, Trachea midline Respiratory/Chest: Normal breath sounds, CTA, No accessory muscle use Cardiovascular: S1, S2, No murmur Abdomen/GI:Soft, Non tender, Bowel sounds present Extremities/Musculoskeletal:normal inspection, no edema Neurologic/Psych:AAOX3, grossly no focal neurological deficits Skin: normal color, warm Results & Data Results & Data ([facility]) Vital Signs (Past 12 Hours) Vital Signs Temp Pulse Resp BP Pulse Ox O2 Del Method 08/25/22 14:38 36.8 C 57 L 16 164/97 H 96 Room Air 08/25/22 07:40 36.3 C L 62 16 178/95 H 97 Room Air Laboratory Results Short CBC 08/25/22 Range/Units 06:14 WBC 7.90 (4.8-10.8) K/ul Hgb 12.3 (12.0-16.0) g/dl Hct 36.2 L (37.0-47.0) % Plt Count 242 (130-400) K/uL BMP 08/25/22 06:14 Sodium 141 Potassium 3.7 Chloride 106 Carbon Dioxide 25 BUN 11 Creatinine 0.65 Glucose 115 H Calcium 9.5
[2022-08-25] MEDS: ATORVASTATIN 10 MG TAB PO SCH (20:46)
[2022-08-26] MEDS: metroNIDAZOLE 500 MG/100 ML BAG IV SCH (05:43)
[2022-08-26] MEDS: LEVOTHYROXINE SODIUM 25 MCG TABLET PO SCH (05:43)
[2022-08-26] MEDS: PANTOprazole 40 MG TAB PO SCH (05:43)
[2022-08-26] MEDS: methylPREDNISolone 40 MG in SYRINGE 0 ML IV SCH (08:27)
[2022-08-26] MEDS: CHOLECALCIFEROL 1,000 UNITS 25 MCG TAB PO SCH (08:27)
[2022-08-26] MEDS: ESCITALOPRAM OXALATE 10 MG TAB PO SCH (08:27)
[2022-08-26] MEDS: ENOXAPARIN INJ 40 MG/0.4 ML SYR SQ SCH (08:28)
[2022-08-26] MEDS: cefTRIAXone SODIUM 2,000 MG in DEXTROSE 5% 50 ML IV SCH (08:51)
[2022-08-26] MEDS ORDERED: lisinopril 20 MG TAB PO SCH (09:00)
[2022-08-26 10:49] LABS: Calcium 9.4 mg/dl (8.5-10.1); Potassium 3.4 mmol/L (3.5-5.1)
[2022-08-26 10:57] LABS: BUN Creatinine Ratio 23.3 (10-20); Creatinine Clr Calc Pharmacy 72.5 ml/min; Est GFR (African American) 105.2 ml/min; Est GFR (Non-African American) 90.8 ml/min
[2022-08-26] MEDS ORDERED: POTASSIUM CHLORIDE CRTAB 20 MEQ TABCR PO ONE (12:36)
--- NOTE | 2022-08-26 14:30 | Gastroenterology Progress Note ---
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 Responded nicely to Prednisone. Plan I have encouraged her to begin an anti-TNF. Will discuss w her further in OP f/u in the next few weeks. For now, prednisone 40mg PO x one week, 30mg po x 1 wk, will contact her w OP GI f/u and at that time will provide further tapering instructions. Low fiber diet. Add Miralax 1/2 capful daily. Stop po fiber supplement. Admission and Anticipated Discharge Date Admission Date: August 21, 2022 Supervising Physician Co-Signing Physician Notes Crohn's disease admitted with partial sbo. Improving - prednisone taper. Agree with further plan of care as documented. Subjective 57 yr old female w Crohn's (no maintenance meds per pt preference), admitted on 08/21 Ct w partial SBO and neoterminal ileum wall edema. Review of Systems Review of Systems: ROS: Gen: Denies weakness, fevers, weight loss Eyes: No eye redness, or pain, no recent vision changes Resp: No SOB, no cough Cardio: No palpitations/irregular beats, no chest pain GI: As per HPI - now feels well w/o pain and tolerating a low fiber diet. : Denies pain on urination Skin: No jaundice, itching or new rashes Physical Exam Constitutional: WD/WN, vitals as above Eyes: PERRL, conjunctivae normal, anicteric sclerae ENMT: external ear and nose normal, oropharynx normal Neck: trachea midline, no thyromegaly Respiratory: normal respiratory effort, lungs clear to auscultation Cardiovascular: RRR, no murmur, no edema Gastrointestinal (Abdomen): normal bowel sounds, soft, nontender, no hepatosplenomegaly Musculoskeletal: no cyanosis or clubbing, extremities motor strength 5/5 Skin: no rashes, warm and dry Neurologic: PERRL, EOMI, accommodation nl, no face palsy, no dysarthria Psychiatric: A+Ox3, euthymic affect Lymphatic: no cervical or axillary lymphadenopathy Results & Data ([facility]) Vital Signs (Past 12 Hours) Vital Signs Temp Pulse Pulse Resp BP BP Pulse Ox 08/26/22 13:05 36.6 C 58 L 57 L 16 156/83 H 172/91 H 97 08/26/22 07:10 36.6 C 58 L 16 156/83 H 97 O2 Del Method 08/26/22 13:05 08/26/22 07:10 Room Air Laboratory Results Na 140, K 3.4, Cl 105, CO2 23, BUN 17, Cr 0.73. Diagnostic Findings CTAP w IV 08/21/22: Prior right hemicolectomy. Moderate bowel wall thickening at the ileocolic anastomosis as well is [id number] bowel wall thickening involving the majority of the ileal loops within the right lower quadrant which are also slightly distended and fluid-filled. Findings are consistent with a nonspecific enterocolitis with a probable partial small bowel obstruction due to the thickening at the ileocolic anastomosis.
--- NOTE | 2022-08-26 16:16 | Discharge Summary ---
Date of Service August 26, 2022 Admission HPI Per Admitting Provider A 57-year-old female with past medical history significant for hyperlipidemia, allergic rhinitis, emphysema, ongoing tobacco abuse, peripheral vascular disease, history of ascending aortic aneurysm, hypertension, history of Crohn's disease, status post partial colectomy in 1991. Currently not on any medications since last about 8-10 years as per the patient, irritable bowel syndrome, B12 deficiency, migraines, history of pernicious anemia, anxiety presents with abdominal pain. The patient says on Friday, she had some nausea, few episodes of vomiting and felt chills and burning micturition and last evening at 6:00 p.m. started developing abdominal pain, 8/10 in severity, some soreness in the back, came to the ER and with the pain medication, pain is improved. Since last couple of days, since last Friday she did not move her bowels, but denies any blood in the stools or black stools. Currently, denies any headache. No blurred visions, no earache, no runny nose, no sore throat. Appetite is okay. No difficulty swallowing. No chest pain, no shortness of breath, currently no nausea, resting comfortably and hemodynamically stable. Admission Exam Per Admitting Provider GENERAL: The patient is of moderate build, not in acute distress. VITAL SIGNS: Temperature 36.5, pulse 64, respiratory rate 16, blood pressure 154/88, oxygen 97% on room air. HEENT: Pupils equal, round and reactive to light. Oral mucosa moist. NECK: No JVD. No neck masses. CARDIOVASCULAR: S1 and S2 heard. Regular rate and rhythm. No murmur, no gallop. RESPIRATORY SYSTEM: Normal AP diameter. No accessory muscle use. No wheezing or crackles. ABDOMEN: Soft, bowel sounds present. Mild diffuse discomfort. No guarding. No rigidity, no distention. CENTRAL NERVOUS SYSTEM: Cranial nerves II-XII grossly intact, nonfocal. EXTREMITIES: No edema, no erythema. Principal Diagnosis Crohn's Flare Discharge Exam Constitutional WD/WN, vitals as above Respiratory normal respiratory effort, lungs clear to auscultation Cardiovascular Rate/Rhythm: regular rate and regular rhythm Vessels: normal peripheral pulses Extremities: no edema Gastrointestinal (Abdomen) Percussion/Palpation: abdomen soft; abdomen nontender Skin no rashes, warm and dry Neurologic no focal motor deficits Psychiatric A+Ox3, euthymic affect Discharge Data Allergies Allergy/AdvReac Type Severity Reaction Status Date / Time Penicillins Allergy Intermediate AMOXICILLIN Verified 08/21/22 01:35 - RASH sulfamethoxazole [Bactrim] Allergy Intermediate Rash Verified 08/21/22 01:35 trimethoprim [Bactrim] Allergy Intermediate Rash Verified 08/21/22 01:35 Consultations 08/21/22 08:00 Consult Gastroenterology Routine 08/22/22 11:18 Consult General Surgery Routine Ordered Studies Laboratory Results WBC 7.90 K/ul (4.8-10.8) 08/25/22 06:14 RBC 4.05 M/uL (4.20-5.40) L 08/25/22 06:14 Hgb 12.3 g/dl (12.0-16.0) 08/25/22 06:14 Hct 36.2 % (37.0-47.0) L 08/25/22 06:14 MCV 89.4 fL (80.0-100.0) 08/25/22 06:14 MCH 30.4 pg (25.0-34.0) 08/25/22 06:14 MCHC 34.0 g/dL (32.0-36.0) 08/25/22 06:14 RDW Std Deviation 46.3 fL (36.4-46.3) 08/25/22 06:14 RDW Coeff of Kathia 14.2 % (11.5-14.5) 08/25/22 06:14 Plt Count 242 K/uL (130-400) 08/25/22 06:14 MPV 10.3 fL (9.4-12.4) 08/25/22 06:14 Immature Gran % (Auto) 0.3 % 08/21/22 07:46 Neut % (Auto) 66.3 % 08/21/22 07:46 Lymph % (Auto) 23.8 % 08/21/22 07:46 [place] % (Auto) 8.1 % 08/21/22 07:46 Eos % (Auto) 1.1 % 08/21/22 07:46 Baso % (Auto) 0.4 % 08/21/22 07:46 Neut # (Auto) 6.00 K/uL (1.40-6.50) 08/21/22 07:46 Lymph # (Auto) 2.16 K/uL (1.2-3.4) 08/21/22 07:46 [place] # (Auto) 0.73 K/uL (0.11-0.59) H 08/21/22 07:46 Eos # (Auto) 0.10 K/uL (0-0.50) 08/21/22 07:46 Baso # (Auto) 0.04 K/uL (0-0.2) 08/21/22 07:46 Immature Gran # (Auto) 0.03 K/uL (0.01-0.20) 08/21/22 07:46 ESR 8 mm/hr (0-30) 08/21/22 01:35 Sodium 140 mmol/L (136-145) 08/26/22 09:07 Potassium 3.4 mmol/L (3.5-5.1) L 08/26/22 09:07 Chloride 105 mmol/L (98-107) 08/26/22 09:07 Carbon Dioxide 23 mmol/L (21-32) 08/26/22 09:07 Anion Gap 12 (3-11) H 08/26/22 09:07 BUN 17 mg/dl (6-23) 08/26/22 09:07 Creatinine 0.73 mg/dl (0.6-1.2) 08/26/22 09:07 Est Cr Clr Drug Dosing 72.5 ml/min 08/26/22 09:07 Est GFR ( Amer) 105.2 ml/min 08/26/22 09:07 Est GFR (Non-Af Amer) 90.8 ml/min 08/26/22 09:07 BUN/Creatinine Ratio 23.3 (10-20) H 08/26/22 09:07 Glucose 126 mg/dl (70-99(Fasting)) H 08/26/22 09:07 Lactate 1.5 mmol/L (0.4-2.0) 08/21/22 05:36 Calcium 9.4 mg/dl (8.5-10.1) 08/26/22 09:07 Magnesium 1.9 mg/dl (1.7-2.4) 08/22/22 07:35 Total Bilirubin 0.4 mg/dl (0.2-1.0) 08/23/22 07:58 AST 14 U/L (13-39) 08/23/22 07:58 ALT 11 U/L (7-52) 08/23/22 07:58 Alkaline Phosphatase 71 U/L (34-104) 08/23/22 07:58 Troponin I High Sens 2.5 pg/ml (0-14) 08/21/22 01:35 C-Reactive Protein < 0.50 mg/dl (0-0.5) 08/21/22 01:35 Total Protein 6.5 gm/dl (6.0-8.3) 08/23/22 07:58 Albumin 3.8 gm/dl (3.4-5.0) 08/23/22 07:58 Globulin 2.7 gm/dl (2.5-4.0) 08/23/22 07:58 Albumin/Globulin Ratio 1.4 (0.9-2) 08/23/22 07:58 Lipase 13 U/L (11-82) 08/21/22 01:35 Urine Color Dark Yellow 08/21/22 01:45 Urine Appearance Cloudy (Clear) A 08/21/22 01:45 Urine pH 5.5 (4.5-7.5) 08/21/22 01:45 Ur Specific [place] 1.032 (1.000-1.030) H 08/21/22 01:45 Urine Protein Trace (Negative) H 08/21/22 01:45 Urine Glucose (UA) Negative (Negative) 08/21/22 01:45 Urine Ketones Trace (Negative) H 08/21/22 01:45 Urine Blood Negative (Negative) 08/21/22 01:45 Urine Nitrite Negative (Negative) 08/21/22 01:45 Urine Bilirubin Negative (Negative) 08/21/22 01:45 Urine Urobilinogen Negative (Negative) 08/21/22 01:45 Ur Leukocyte Esterase 1+ (Negative) H 08/21/22 01:45 Urine WBC (Auto) 10-30 /hpf (0-5) H 08/21/22 01:45 Urine RBC (Auto) 0-4 /hpf (0-4) 08/21/22 01:45 U Hyaline Cast (Auto) 0 /lpf (0-5) 08/21/22 01:45 U Epithel Cells (Auto) >30 /lpf (0-5) H 08/21/22 01:45 Urine Bacteria (Auto) 1+ (Negative) H 08/21/22 01:45 Calcium Oxalate Crystal Present (None Prsent) A 08/21/22 01:45 Urine Mucus Present (None Prsent) A 08/21/22 01:45 Stl C. diff Tox B Gene TNP 08/21/22 Unknown SARS-CoV-2, RNA, NAAT NEGATIVE (NEGATIVE) 08/21/22 04:38 Impressions Abdomen/Pelvis CT 08/21/22 01:[address] WITH IV CONTRAST CT DOSE: 284.14 mGy.cm HISTORY: Epigastric abdominal pain. TECHNIQUE: Multiaxial CT images of the abdomen and pelvis were performed following the use of intravenous contrast. A dose lowering technique was utilized adhering to the principles of ALARA. COMPARISON STUDY: Abdomen and pelvis CT 08/12/2011. FINDINGS: Mild dependent changes seen within the lung bases. Punctate calcified granulomas within the right lung base. No pneumoperitoneum. No pneumatosis. No acute fractures identified. The liver, gallbladder, spleen, adrenal glands, and pancreas are unremarkable. The kidneys enhance normally. No hydronephrosis. The main portal vein is patent. No retroperitoneal lymphadenopathy. Normal caliber abdominal aorta. The bladder, uterus, and ovaries are within normal limits. Small amount of pelvic free fluid. Prior right hemicolectomy. Moderate bowel wall thickening at the ileocolic anastomosis as well is [id number] bowel wall thickening involving the majority ileal loops within the right lower quadrant which are also slightly distended and fluid-filled. Findings are consistent with a nonspecific enterocolitis with a probable partial small bowel obstruction due to the thickening at the ileocolic anastomosis. There is mild mesenteric edema within the right side of the abdomen adjacent to the thickened ileal loops. IMPRESSION: Prior right hemicolectomy. Moderate bowel wall thickening at the ileocolic anastomosis as well is [id number] bowel wall thickening involving the majority of the ileal loops within the right lower quadrant which are also slightly distended and fluid-filled. Findings are consistent with a nonspecific enterocolitis with a probable partial small bowel obstruction due to the thickening at the ileocolic anastomosis. ACT 112: Negative or not required by law. Electronically signed by: Baldev Cervantes M.D. 08/21/2022 7:37 AM Chest X-Ray 08/22/22 12:12 SINGLE VIEW CHEST CLINICAL HISTORY: Enteric tube placement FINDINGS: An AP, portable, upright chest radiograph is compared to study dated 01/30/2017. Correlation is made with chest CT dated 04/16/2007. The lung apices are excluded. An enteric tube has been placed. The tip projects below the diaphragm over the mid stomach. The cardiomediastinal silhouette is top normal for projection noting atherosclerotic calcification of the thoracic aorta. Chronic interstitial thickening is similar to previous. Mild atelectasis is seen at the lung bases. The lungs and pleural spaces are otherwise clear. No pneumothorax is seen. The skeletal structures are osteopenic. The bony thorax is grossly intact. IMPRESSION: 1. An enteric tube has been placed as above. 2. The lungs are clear. ACT 112: Negative or not required by law. Electronically signed by: Tj Kimball M.D. 08/22/2022 1:08 PM KUB X-Ray 08/25/22 07:00 KUB CLINICAL HISTORY: Small bowel obstruction. COMPARISON STUDY: CT of the abdomen and pelvis August 21, 2022 and KUB August 24, 2022. FINDINGS: Postoperative findings right hemicolectomy are noted. The nasogastric tube has been removed. Small bowel loops measure up to 2.8 cm in caliber. There is no radiographic evidence for a bowel obstruction. No free air is noted on supine exam. IMPRESSION: No radiographic evidence for a residual small bowel obstruction. ACT 112: Negative or not required by law. Electronically signed by: Alfonzo Moss M.D. 08/25/2022 9:12 AM Hospital Course (1) Crohn's disease: (2) Enteritis: (3) Partial small bowel obstruction: Plan Patient is a 57 yr female with H/O Fibrostenotic Crohn's not currently on any medications, hx of right hemicolectomy, HLD, Emphysema, tobacco abuse, PVD, HTN who presented to ED with n/v and abd pain for 1-2 days. Partial small bowel obstruction Crohn's disease flare Enteritis H/o ileocolonic anastomosis CT a/P: Prior right hemicolectomy. Moderate bowel wall thickening at the ileocolic anastomosis as well is [id number] bowel wall thickening involving the majority of the ileal loops within the right lower quadrant which are also slightly distended and fluid-filled. Findings are consistent with a nonspecific enterocolitis with a probable partial small bowel obstruction due to the thickening at the ileocolic anastomosis. GI and General Surgery Consulted Partial SBO resolved with NG tube. Patient now tolerating regular, low fiber diet. Patient was treated with IV solumedrol for Crohn's flare -- discharge on prednisone taper Received empiric antibiotics, no indications to continue at discharge Blood cultures: Negative Patient needs outpatient MRE and colonoscopy and discussion of need for biologics with regular GI provider Possible UTI Urine culture negative, UTI ruled out HTN BP elevated during admission, lisinopril increased to 20mg daily with improvement HLD continue statin Tobacco use encourage cessation Total Time Total Time Spent Total Time Spent (In Minutes): 35 Discharge Plan Discharge Items Patient Disposition: Home - Self-Care Reason For Visit: ABDOMINAL PAIN Discharge Diagnosis: Crohns Flare Partial Small Bowel Obstruction Condition on Discharge: Good Activity: Resume your previous activity Non-emergency contact: Primary Care Provider and Club Car Attendant Call non-emergency contact if: you have any medication questions, your symptoms worsen, your pain is not controlled and you have a fever Follow-up/Referrals: Munir Greene CRNP [Nurse Practitioner] - (Office will call you with follow up appointment) Chung Yi PA-C [Primary Care Provider] - (Date & Time 08/30/2022 7:20 AM Provider Chung Yi PA-C Department General Internal Medicine [facility] ) Diet: Low Fiber Addtl Attending Provider Instructions: You came to the hospital for evaluation of abdominal pain. You were found to have a flare of your Crohn's disease and partial small bowel obstruction. Your partial small bowel obstruction resolved with bowel rest and NG tube. Continue to follow a low fiber diet. You were also treated with IV steroids and antibiotics for the Crohn's flare. You will be discharged on prednisone --take prednisone 40 mg daily for 1 week then prednisone 30 mg daily for 1 week. GI will order additional steroid taper at your follow-up. Your blood pressure was elevated during your stay and your lisinopril was increased to 20 mg daily. The GI office will reach out to you for a follow-up appointment. A follow-up appointment has been scheduled for you with your PCP. You will need to follow up with GI to discuss getting a MRE study, colonoscopy, and possible use of biologics to treat your Crohn's disease. Continue to take other medications as prescribed. It was a pleasure taking care of you. If you need to reach a member of the [facility] [address] [facility] hospitalist team at [facility], please call [phone]. GWEN Marino Pending Studies at Discharge: No Stand-Alone Forms: My [facility], Smoking Cessation Medications and DC Order Prescriptions: New lisinopril 20 mg Tablet 20 mg PO DAILY Qty: 30 0RF prednisone 10 mg tablet 10 mg PO DIRECTED Qty: 49 0RF Rx Instructions: see taper instructions Take Prednisone 40mg daily x 7 days, then 30mg daily x 7 days Continued albuterol sulfate 2.5 mg /3 mL (0.083 %) Solution For Nebulization 2.5 mg INHALATION QID PRN (Reason: Shortness Of Breath) atorvastatin 10 mg tablet 10 mg PO HS Rx Instructions: LAST FILLED 12/28/21 FOR 90 DAYS/90 TABS. sumatriptan succinate 6 mg/0.5 mL Cartridge 6 mg SUBCUT BID PRN (Reason: Headache) levothyroxine 25 mcg Tablet 25 mcg PO DAILYBB Rx Instructions: NO RECORD OF THIS MED ON EXT MED HX. omeprazole 20 mg Capsule,Delayed Release(Dr/Ec) 20 mg PO DAILYBB escitalopram oxalate 10 mg tablet 10 mg PO DAILY Rx Instructions: LAST FILLED 11/07/21 FOR 90 DAYS/90 TABS. cholecalciferol (vitamin D3) [Vitamin D3] 50 mcg (2,000 unit) Capsule 50 mcg PO DAILY Discontinued lisinopril 10 mg Tablet 10 mg PO DAILY Rx Instructions: LAST FILLED 08/30/21 FOR 90 DAYS/90 TABS. Discharge Orders: Discharge Order (Routine); Ordered 08/26/22 Ordered By: Sadia Grajeda Admission Data Admit Date/Time: 08/21/22 05:17 Attending Provider: Aiden Man Admit Provider: Kb Rosales Primary Care Provider: Chung Yi Other Providers: Kb Rosales ; Munir Greene ; Darryl oDbbs ; Tori Arnold ; Kari Peter ; Johanna Mariano ; Swathi Campos ; Michael Esqueda ; Adam Huizar ; Gloria Cano ; Myrtle Kwon ; Eben Mendez ; Ita Huddleston ; Jayla Muse ; Sammi Louis ; [place] ; Katy Butts ; Kirby Burks ; Adal Driver ; Liseth Chow ; Ren Prince Jr ; Nilda Salomon ; eBnito Ramos ; Kyle Landis ; Lizzie Romo ; Trisha Cano ; Og Pennington ; Rui Streeter ; Lupe Stock ; Kari Trinidad ; Tano Guillermo Jr ; Brigitte Lopez ; Harry Coppola ; [place] Other Interventions: Discharge Summary Assessment (RN) Last Done: 08/26/22 13:05 Supervising Physician Co-Signing Physician Notes Patient is seen and examined at bedside. Doing well today. Tolerating diet, had bowel movements overnight. Denies any chest pain, shortness of breath, dizziness, nausea, abdominal pain. Plan to be discharged home today. On exam patient is moderately built and nourished, no apparent distress, normocephalic atraumatic, EOMI, normal breath sounds, clear to auscultation, S1-S2, no murmur, no pedal edema, abdomen soft, nontender, normal bowel sounds, alert, awake, oriented, grossly no focal deficits. Patient is being managed for partial small bowel obstruction, Crohn's disease/enteritis. Bowel obstruction resolved. Tolerating current diet. Continue steroids as per GI. Advised low fiber diet and continue prednisone taper course as recommended by GI. Advised to follow-up with PCP and gastroenterology upon discharge. I personally reviewed the record. Patient is interviewed and examined at bedside. Patient's care is coordinated with Sadia Grajead NP. Please refer to the documentation above for details of patient's presentation and for discussion of other issues.
== END 2022-08-26 14:15 | disposition home or self-care (01) | DRG 387 ==
LOC: ED 00:29 → 3W 05:17

== ENCOUNTER 2022-11-08 09:11 | Observation (INO) ==
[2022-11-08] MEDS ORDERED: SODIUM CHLORIDE 0.9% 1000ML 1,000 ML IV ONE (09:22)
[2022-11-08] MEDS ORDERED: ACETAMINOPHEN 1,000 MG/100 ML VIAL IV STA (09:57)
[2022-11-08] MEDS ORDERED: MoRPHine SULFATE 4 MG/ML 1 ML CARP\\VIAL IV STA (09:57)
[2022-11-08] MEDS ORDERED: ONDANSETRON INJ 2 MG/ML 2 ML VIAL IV STA (09:57)
[2022-11-08 10:08] LABS: Basophils # (auto) 0.08 K/uL (0-0.2); Basophils % (auto) 0.7 %; Eosinophils % (auto) 0.8 %; Hematocrit (blood only) 44.1 % (37.0-47.0); Hemoglobin 15.6 g/dl (12.0-16.0); Immature Granulocytes # (auto) 0.03 K/uL (0.01-0.20); Immature Granulocytes % (auto) 0.2 %; Lymphocytes # (auto) 2.23 K/uL (1.2-3.4); Lymphocytes % (auto) 18.2 %; Mean Corpuscular Hgb Conc 35.4 g/dL (32.0-36.0); Mean Corpuscular Volume 87.7 fL (80.0-100.0); Mean Platelet Volume 9.6 fL (9.4-12.4); Monocytes # (auto) 0.65 K/uL (0.11-0.59); Monocytes % (auto) 5.3 %; Neutrophils # (auto) 9.19 K/uL (1.40-6.50); Neutrophils % (auto) 74.8 %; Platelet Count 296 K/uL (130-400); RDW Coefficient of Variation 15.6 % (11.5-14.5); RDW Standard Deviation 49.6 fL (36.4-46.3); Red Blood Count 5.03 M/uL (4.20-5.40); White Blood Count 12.28 K/ul (4.8-10.8)
[2022-11-08 11:10] LABS: Albumin Level 4.9 gm/dl (3.4-5.0); Anion Gap 11 (3-11); Bilirubin,Total 0.9 mg/dl (0.2-1.0); Carbon Dioxide 22 mmol/L (21-32); Chloride 105 mmol/L (98-107); Potassium 4.4 mmol/L (3.5-5.1); Sodium 138 mmol/L (136-145)
[2022-11-08 11:16] LABS: Alanine Aminotransferase 20 U/L (7-52); Albumin Globulin Ratio 1.7 (0.9-2); Alkaline Phosphatase 103 U/L (34-104); Aspartate Aminotransferase 26 U/L (13-39); BUN Creatinine Ratio 17.1 (10-20); Blood Urea Nitrogen 12 mg/dl (6-23); C Reactive Protein < 0.50 mg/dl (0-0.5); Creatinine Clr Calc Pharmacy 78.8 ml/min; Est GFR (African American) 110.7 ml/min; Est GFR (Non-African American) 95.5 ml/min; Globulin 2.9 gm/dl (2.5-4.0); Glucose 116 mg/dl (70-99(Fasting)); Lipase 11 U/L (11-82); Total Protein 7.8 gm/dl (6.0-8.3)
[2022-11-08] MEDS ORDERED: OPTIRAY 320 100ml IV ONE (11:47)
--- NOTE | 2022-11-08 12:20 | CT Scan Report ---
CT OF THE ABDOMEN AND PELVIS WITH CONTRAST CLINICAL HISTORY: Abdominal pain and nausea. Crohn's disease. History of small bowel obstruction. COMPARISON STUDY: CT of the abdomen and pelvis August 21, 2022 and KUB August 25, 2022. TECHNIQUE: Following IV administration of 88 mL of Optiray, axial images of the abdomen and pelvis we re obtained from the lung bases to the proximal femurs. Images were reviewed in the axial, sagittal, and coronal planes. IV contrast was administered without complication. Automated exposure control wa s utilized for the study. A dose lowering technique was utilized adhering to the principles of ALARA . CT DOSE: 352.78 mGycm FINDINGS: Lung bases are unremarkable. No pneumatosis, free air or portal venous gas is present. Subs equent to the medial lateral segment hepatic lesion is unchanged. This favors a cyst. There are no ne w hepatic lesions. There is no biliary or pancreatic ductal dilatation. Spleen, adrenal glands and ki dneys are unremarkable. Gallbladder is slightly distended. There are postoperative findings consisten t with ileocecectomy. Circumferential wall thickening of the neoterminal ileum is best shown on axial image 240 of 441. There is mucosal enhancement. This suggests active Crohn's. There is also mild wal l thickening and mucosal hyperemia of several distal ileal loops with mesenteric stranding and a smal l amount of fluid. The distal small bowel is mildly dilated. The remaining proximal portion of the co sim is fluid-filled and mildly dilated as well. There is sigmoid diverticulosis. No evidence for acut e diverticulitis. There is no abscess within the abdomen or the pelvis. Major vasculature is patent. There is no lymphadenopathy. No fistulas are identified. IMPRESSION: Prior ileocecectomy. Similar findings to CT of August 21, 2022 with moderate circumfere ntial wall thickening and mucosal hyperemia of the terminal ileum and mild wall thickening and hypere peter of several distal ileal loops which favors active inflammatory bowel disease with associated mese nteric stranding and a small amount of ascites. Mildly dilated fluid-filled distal small bowel which may reflect a partial small bowel obstruction due to thickening of the neoterminal ileum. No abscess. No fistulas. ACT 112: Negative or not required by law. Electronically signed by: Alfonzo Moss M.D. 11/08/2022 12:17 PM
[2022-11-08 12:57] LABS: Appearance Urine Clear (Clear); Bilirubin Urine Negative (Negative); Blood Urine Negative (Negative); Color Urine Yellow; Glucose Urine UA Negative (Negative); Ketones Urine Negative (Negative); Leukocyte Esterase Urine Negative (Negative); Nitrite Urine Negative (Negative); Protein Urine Negative (Negative); Urobilinogen Urine Negative (Negative); pH Urine 5.5 (4.5-7.5)
--- NOTE | 2022-11-08 13:17 | History & Physical Report ---
Date of Service November 08, 2022 Assessment & Plan (1) Partial small bowel obstruction: (2) Crohn's disease: (3) Abdominal pain: Plan: Patient is 57-year-old female with PMH Crohn's, h/o right hemicolectomy, HTN, HLD, Emphysema, tobacco abuse, migraine, hypothyroidism presented to ER with complaint of N/V, abdominal pain x 1 day. Denies fever, chills, hematemesis, hematochezia, melena, diarrhea. In ER vitals stable. WBC: 12 CT abdomen/pelvis: Prior ileocecectomy. Similar findings to CT of August 21, 2022 with moderate circumferential wall thickening and mucosal hyperemia of the terminal ileum and mild wall thickening and hyperemia of several distal ileal loops which favors active inflammatory bowel disease with associated mesenteric stranding and a small amount of ascites. Mildly dilated fluid-filled distal small bowel which may reflect a partial small bowel obstruction due to thickening of the neoterminal ileum. No abscess. No fistulas. In ER given 1L NSS, IV Tylenol, morphine, Zofran Admit MedSurg Patient denied NG tube in ER Tylenol IV as needed pain, morphine as needed severe pain however try to limit use Zofran as needed nausea Solu-Medrol 20 mg every 8 hours per GI recommendations GI consult. Recommending IV Solu-Medrol as above, holding on antibiotics at this time General surgery consult KUB in a.m. CBC, CMP in a.m. (4) Hypertension: Plan: Continue lisinopril (5) Hypothyroidism: Plan: Continue levothyroxine (6) High cholesterol: Plan: Hold atorvastatin tonight and reassess tomorrow (7) Emphysema lung: Plan: No signs acute exacerbation Albuterol as needed (8) GERD (gastroesophageal reflux disease): Plan: Switching home oral PPI to IV PPI for now DVT Prophylaxis Lovenox SQ Full Code as per discussion with pt Follows with Chung Yi PA-C for routine care Pt was seen and care coordinated with Dr Rivero. See addendum I spent a total of 80 minutes reviewing notes, outpatient records, labs, medication, coordinating, documenting and providing care for this patient excluding time spent in the performance of separately billed services. History of Present Illness Chief Complaint: Abdominal pain Primary Care Provider: Chung Yi PA-C Patient is 57-year-old female with PMH Crohn's, h/o right hemicolectomy, HTN, HLD, Emphysema, tobacco abuse, migraine, hypothyroidism presented to ER with complaint of abdominal pain x 1 day. Patient states last night started with mid abdominal pain describing as cramping. Pain continued throughout the night and this morning. Also had some nausea and vomiting. Last episode of vomiting was prior to ER arrival. Reports had BM prior to ER arrival. Tried Tylenol last night without relief of abdominal cramping. History of hospitalization 08/21/2022- 08/26/2022 for partial small bowel obstruction, Crohn's disease flare, enteritis. Was treated with NG tube and IV Solu-Medrol. Discharged on prednisone taper. Patient states current abdominal pain feels similar as prior hospital admission in August. She reports she following with [facility] and Remicade was discussed however patient states has not pursued fully yet. Denies fever/chills, diaphoresis, hematemesis, diarrhea, hematochezia, melena, mucus in stool, PUGA, dizziness, syncope, neck pain, CP, SOB, cough, sore throat, rhinorrhea,paresthesias, weakness, extremity edema, rashes, urinary symptoms. History EGD 07/25/2022: Moderate Schatzki ring that was dilated Allergies Allergy/AdvReac Type Severity Reaction Status Date / Time Penicillins Allergy Intermediate AMOXICILLIN Verified 08/21/22 01:35 - RASH sulfamethoxazole [Bactrim] Allergy Intermediate Rash Verified 08/21/22 01:35 trimethoprim [Bactrim] Allergy Intermediate Rash Verified 08/21/22 01:35 Home Medications Medication Instructions Recorded Confirmed Type albuterol sulfate 2.5 mg/3 mL 2.5 mg inhalation QID PRN 08/21/22 11/08/22 History (0.083 %) solution for nebulization Shortness Of Breath cholecalciferol (vitamin D3) 50 50 mcg PO DAILY 08/21/22 11/08/22 History mcg (2,000 unit) capsule (Vitamin D3) escitalopram oxalate 10 mg tablet 10 mg PO DAILY 08/21/22 11/08/22 History levothyroxine 25 mcg tablet 25 mcg PO DAILYBB 08/21/22 11/08/22 History sumatriptan succinate 6 mg/0.5 mL 6 mg subcut BID PRN Headache 08/21/22 11/08/22 History subcutaneous cartridge (refill) lisinopril 20 mg tablet 20 mg PO DAILY #30 tabs 08/26/22 11/08/22 Rx atorvastatin 20 mg tablet 20 mg PO HS 11/08/22 11/08/22 History omeprazole 40 mg capsule,delayed 40 mg PO DAILY 11/08/22 11/08/22 History release prednisone 20 mg tablet 40 mg PO DAILY #20 tabs 11/10/22 Rx Past Med/Surg History Medical History Crohn's disease Emphysema lung GERD (gastroesophageal reflux disease) High cholesterol Hypertension Hypothyroidism Migraine Psoriasis PVD (peripheral vascular disease) Surgical History History of colectomy History of colonoscopy History of esophagogastroduodenoscopy (EGD) Family History Father FH: sudden cardiac (SCD) Other Diabetes Social History Smoking Status: Current every day smoker Tobacco Type: Cigarettes Cigarettes Per Day: 15; Do You Dip or Chew Tobacco: No; Hx Alcohol Use: Yes Alcohol type: beer Hx Substance Use: No Preferred Language: B[place]ian Communication Ability: Effective Associate Program Manager Required: No Beliefs That Will Affect Care: None Current Living Situation: Spouse Feels Safe at Home: Yes Assistive Devices: None Review of Systems Review of Systems: All systems reviewed & are unremarkable except as noted in HPI & below Physical Exam Physical Exam: General: no distress, WDWN Head: normocephalic, atraumatic Eyes: conjunctiva non-injected, anicteric ENT: normal inspection external ears, nose, mucous membranes moist Neck: supple, trachea midline Lungs: clear, no respiratory distress, no wheezing/rhonchi/rales CV: RRR, no murmur, no pretibial edema Abd: normal BS, mildly distended, soft, +tenderness to palpation RLQ, periumbilical, LLQ Ext: no cyanosis, no calf tenderness Neuro: A&O x 3, no focal deficits noted, normal affect Skin: warm, dry Results & Data Results & Data Vital Signs (Past 12 Hours) Vital Signs Temp Pulse Pulse Resp BP BP Pulse Ox 11/08/22 10:07 76 11/08/22 11:00 59 L 18 151/95 H 95 11/08/22 09:55 98 11/08/22 09:55 79 18 146/103 H 98 11/08/22 09:16 36.4 C L 88 14 144/103 H 97 O2 Del Method 11/08/22 10:07 11/08/22 11:00 Room Air 11/08/22 09:55 Room Air 11/08/22 09:55 Room Air 11/08/22 09:16 Room Air Laboratory Results Short CBC 11/08/22 Range/Units 09:22 WBC 12.28 H (4.8-10.8) K/ul Hgb 15.6 (12.0-16.0) g/dl Hct 44.1 (37.0-47.0) % Plt Count 296 (130-400) K/uL BMP 11/08/22 09:22 Sodium 138 Potassium 4.4 Chloride 105 Carbon Dioxide 22 BUN 12 Creatinine 0.70 Glucose 116 H Calcium 10.0 Liver Function 11/08/22 Range/Units 09:22 Total Bilirubin 0.9 (0.2-1.0) mg/dl AST 26 (13-39) U/L ALT 20 (7-52) U/L Alkaline Phosphatase 103 (34-104) U/L Albumin 4.9 (3.4-5.0) gm/dl Urine 11/08/22 Range/Units 11:57 Urine Color Yellow Urine Appearance Clear (Clear) Urine pH 5.5 (4.5-7.5) Ur Specific [place] 1.020 (1.000-1.030) Urine Protein Negative (Negative) Urine Glucose (UA) Negative (Negative) Diagnostic Findings Abdomen/Pelvis CT 11/08/22 09:58 CT OF THE ABDOMEN AND PELVIS WITH CONTRAST CLINICAL HISTORY: Abdominal pain and nausea. Crohn's disease. History of small bowel obstruction. COMPARISON STUDY: CT of the abdomen and pelvis August 21, 2022 and KUB August 25, 2022. TECHNIQUE: Following IV administration of 88 mL of Optiray, axial images of the abdomen and pelvis were obtained from the lung bases to the proximal femurs. Images were reviewed in the axial, sagittal, and coronal planes. IV contrast was administered without complication. Automated exposure control was utilized for the study. A dose lowering technique was utilized adhering to the principles of ALARA. CT DOSE: 352.78 mGycm FINDINGS: Lung bases are unremarkable. No pneumatosis, free air or portal venous gas is present. Subsequent to the medial lateral segment hepatic lesion is unchanged. This favors a cyst. There are no new hepatic lesions. There is no biliary or pancreatic ductal dilatation. Spleen, adrenal glands and kidneys are unremarkable. Gallbladder is slightly distended. There are postoperative findings consistent with ileocecectomy. Circumferential wall thickening of the neoterminal ileum is best shown on axial image 240 of 441. There is mucosal enhancement. This suggests active Crohn's. There is also mild wall thickening and mucosal hyperemia of several distal ileal loops with mesenteric stranding and a small amount of fluid. The distal small bowel is mildly dilated. The remaining proximal portion of the colon is fluid-filled and mildly dilated as well. There is sigmoid diverticulosis. No evidence for acute diverticulitis. There is no abscess within the abdomen or the pelvis. Major vasculature is patent. There is no lymphadenopathy. No fistulas are identified. IMPRESSION: Prior ileocecectomy. Similar findings to CT of August 21, 2022 with moderate circumferential wall thickening and mucosal hyperemia of the terminal ileum and mild wall thickening and hyperemia of several distal ileal loops which favors active inflammatory bowel disease with associated mesenteric stranding and a small amount of ascites. Mildly dilated fluid-filled distal small bowel which may reflect a partial small bowel obstruction due to thickenin g of the neoterminal ileum. No abscess. No fistulas. ACT 112: Negative or not required by law. Electronically signed by: Alfonzo Moss M.D. 11/08/2022 12:17 PM Supervising Physician Co-Signing Physician Notes Pt was seen and examined. Agreed with Dianne KWON exam, assessment and plan. 57-year-old female with PMH Crohn's, h/o right hemicolectomy, HTN, HLD, Emphysema, tobacco abuse, migraine, hypothyroidism presented to ER with complaint of abdominal pain. Pt said that abdominal pain started yesterday, diffused abdominal pain associated with nausea and vomiting. She was recently admitted on 08/21/2022-08/26/2022 for partial small bowel obstruction, Crohn's disease flare, enteritis that was treated with NG tube and prednisone. Pt said that her pain feels similar compare to last admission. CT abd/pelvis showed Similar findings to CT of August 21, 2022 with moderate circumferential wall t hickening and mucosal hyperemia of the terminal ileum and mild wall thickening and hyperemia of several distal ileal loops which favors active inflammatory bowel disease with associated mesenteric stranding and a small amount of ascites.Received pain medication on admission. Patient denied NG tube in ER. Will continue pain control with Tylenol IV as needed pain, morphine as needed severe pain. GI consulted that recommended Solu-Medrol 20 mg every 8 hours. surgery consulted. Continue monitor closely. MD Mat
--- NOTE | 2022-11-08 14:03 | Electrocardiogram Report ---
Test Reason : Blood Pressure : / mmHG Vent. Rate : 070 BPM Atrial Rate : 070 BPM P-R Int : 160 ms QRS Dur : 080 ms QT Int : 404 ms P-R-T Axes : 050 -59 052 degrees QTc Int : 436 ms Normal sinus rhythm Possible Left atrial enlargement Left axis deviation Inferior infarct (cited on or before 02-MAY-2006) Abnormal ECG When compared with ECG of 21-AUG-2022 00:39, Minimal criteria for Anterior infarct are no longer Present Confirmed by Pérez Villalpando ([id number]) on 11/08/2022 2:03:04 PM Referred By: REFERRED SELF Confirmed By:Pérez Villalpando
[2022-11-08] MEDS ORDERED: MoRPHine SULFATE 2 MG/ML CARP IV STA (14:07)
--- NOTE | 2022-11-08 14:29 | Gastrointestinal Consultation ---
Date of Consultation November 08, 2022 Assessment & Plan (1) Partial small bowel obstruction: (2) Crohn's disease: Pt is a 57 yo female w Crohn's disease (prior treatment w 6MP but not on meds x 12 yrs now), s/p R hemicolectomy who presented w abd pain, n/v, CT consistent with inflammation in gregory TI area, causing partial SBO wo fistula or abscess formation. She was admitted w similar symptoms back in August and was DC'd with steroid taper after hospitalization. Plans made to start Inflectra IV but pt had been hesitant and hasn't started this med. - If diarrhea, check stool cx and Cdiff - NGT placement if N/V - KUB tomorrow AM - Bowel rest - Avoid narcotics, Keep K >4, encourage OOB & ambulation - Methylprednisone 20mg IV q8hrs. Keep pt on Prednisone 40mg daily after DC until she receives TNF for her Crohn's - Defer antibx at this time - Repeat colonoscopy upon her DC - Will inform her outpt GI provider (GWEN Lee) - Surgery consulted - Recall GI PRN over weekend Supervising Physician Co-Signing Physician Notes I have discussed the patient's management with the advanced practitioner. Please refer to the nurse practitioner's note for the documented findings and plan of care. History of Present Illness Reason for Consultation: Abdominal pain ; Crohn's disease Requesting Physician: Dianne Morse PA-C Attending Physician: Dr. Katy Butts History of Present Illness Pt is a 57 yo female w hx of Crohn's disease, s/p R hemicolectomy in 1991, HTN, HLD, emphysema, tobacco aguse, migraines, hypothyroidism, who presented to ED w c/o mid abd pain. She also had nausea and vomiting wo hematemesis or coffee ground emesis. Last BM very small but no rectal bleeding this morning. No fever, chills. She was admitted in this hospital in August for Crohn's flare and inflammation in gregory terminal ileum. Labs today w mild leukocytosis, H/H stable, normal CMP, lipase. CT abd/pelvis w contrast showed prior ileocecectomy. Similar findings to CT of August 21, 2022 with moderate circumferential wall thickening and mucosal hyperemia of the terminal ileum and mild wall thickening and hyperemia of several distal ileal loops which favors active inflammatory bowel disease with associated mesenteric stranding and a small amount of ascites. Mildly dilated fluid-filled distal small bowel which may reflect a partial small bowel obstruction due to thickening of the neoterminal ileum. No abscess. No fistulas. Allergies Allergy/AdvReac Type Severity Reaction Status Date / Time Penicillins Allergy Intermediate AMOXICILLIN Verified 08/21/22 01:35 - RASH sulfamethoxazole [Bactrim] Allergy Intermediate Rash Verified 08/21/22 01:35 trimethoprim [Bactrim] Allergy Intermediate Rash Verified 08/21/22 01:35 Home Medications Medication Instructions Recorded Confirmed Type albuterol sulfate 2.5 mg/3 mL 2.5 mg inhalation QID PRN 08/21/22 11/08/22 History (0.083 %) solution for nebulization Shortness Of Breath cholecalciferol (vitamin D3) 50 50 mcg PO DAILY 08/21/22 11/08/22 History mcg (2,000 unit) capsule (Vitamin D3) escitalopram oxalate 10 mg tablet 10 mg PO DAILY 08/21/22 11/08/22 History levothyroxine 25 mcg tablet 25 mcg PO DAILYBB 08/21/22 11/08/22 History sumatriptan succinate 6 mg/0.5 mL 6 mg subcut BID PRN Headache 08/21/22 11/08/22 History subcutaneous cartridge (refill) lisinopril 20 mg tablet 20 mg PO DAILY #30 tabs 08/26/22 11/08/22 Rx atorvastatin 20 mg tablet 20 mg PO HS 11/08/22 11/08/22 History omeprazole 40 mg capsule,delayed 40 mg PO DAILY 11/08/22 11/08/22 History release Patient History Medical History Crohn's disease Emphysema lung GERD (gastroesophageal reflux disease) High cholesterol Hypertension Hypothyroidism Migraine Psoriasis PVD (peripheral vascular disease) Surgical History History of colectomy History of colonoscopy History of esophagogastroduodenoscopy (EGD) Family History Father FH: sudden cardiac (SCD) Other Diabetes Social History Smoking Status: Current every day smoker Tobacco Type: Cigarettes Cigarettes Per Day: 15; Do You Dip or Chew Tobacco: No; Hx Alcohol Use: Yes Alcohol type: beer Hx Substance Use: No Preferred Language: Portuguese Communication Ability: Effective Research Staff Member Required: No Beliefs That Will Affect Care: None Current Living Situation: Spouse Feels Safe at Home: Yes Assistive Devices: None Review of Systems Review of Systems: All systems reviewed & are unremarkable except as noted in HPI & below Physical Exam Constitutional: WD/WN, vitals as above well groomed, cooperative and comfortable Eyes: PERRL, conjunctivae normal, anicteric sclerae ENMT: external ear and nose normal, oropharynx normal Respiratory: normal respiratory effort, lungs clear to auscultation Cardiovascular: RRR, no murmur, no edema Gastrointestinal (Abdomen): Generalized tenderness, BS hypoactive, mild distension noted Skin: no rashes, warm and dry no jaundice Psychiatric: A+Ox3, euthymic affect Lymphatic: no lymphedema Results & Data Vital Signs (Past 12 Hours) Vital Signs Temp Pulse Pulse Resp BP BP Pulse Ox 11/08/22 14:12 67 11/08/22 14:24 63 18 125/76 94 11/08/22 13:30 71 18 102/62 97 11/08/22 10:07 76 11/08/22 11:00 59 L 18 151/95 H 95 11/08/22 09:55 98 11/08/22 09:55 79 18 146/103 H 98 11/08/22 09:16 36.4 C L 88 14 144/103 H 97 O2 Del Method 11/08/22 14:12 11/08/22 14:24 Room Air 11/08/22 13:30 Room Air 11/08/22 10:07 11/08/22 11:00 Room Air 11/08/22 09:55 Room Air 11/08/22 09:55 Room Air 11/08/22 09:16 Room Air
--- NOTE | 2022-11-08 14:43 | Surgery Consultation ---
Date of Consultation November 08, 2022 Assessment & Plan (1) Partial small bowel obstruction: This is a 57yF with a PMH of Crohns s/p R hemicolectomy in 1991, HTN, HLD, hypothyroid who presents to the [facility] ED on 11/08/22 with complaints of abdominal pain starting yesterday evening. She presented to the ER and underwent a CT a/p that showed findings similar to when she was here in 09/05 of moderate circumferential wall thickening and mucosal hyperemia of the terminal ileum and mild wall thickening and hyperemia of several distal ileal loops which favors active inflammatory bowel disease with associated mesenteric stranding and a small amount of ascites. Mildly dilated fluid-filled distal small bowel which ma y reflect a partial small bowel obstruction due to thickening of the neoterminal ileum. Labs show WBC 12, otherwise unremarkable. Vitals are stable. On exam abdomen is soft, mildly distended with tenderness to palpation in the R mid abdomen. She had a small BM this AM, but not passing recent flatus. Agree with GI consultation due to concern for crohn's flare causing partial SBO. They have recommended starting IV steroids. Keep NPO with IVF for bowel rest. Patient can hold off on NGT for now unless develops worsening nausea/vomiting. Will follow, but no plans for surgical intervention indicated at this time. (2) Crohn's disease: Supervising Physician Co-Signing Physician Notes Dr. Russ on the patient in the emergency room-she is in no distress, abdomen is relatively soft We will continue with nonoperative management-hold on NG tube, her stomach is actually relatively decompressed Plan per GI team noted History of Present Illness History of Present Illness This is a 57yF with a PMH of Crohns s/p R hemicolectomy in 1991, HTN, HLD, hypothyroid who presents to the [facility] ED on 11/08/22 with complaints of abdominal pain. Patient reports her pain started last night. It was crampy in nature and every 10-15 minutes she would get episodes of 9-10/10 pain intermittently. As her symptoms continued she reported to the ER for further evaluation. She underwent a CT a/p that showed findings similar to when she was here in 09/05 of moderate circumferential wall thickening and mucosal hyperemia of the terminal ileum and mild wall thickening and hyperemia of several distal ileal loops which favors active inflammatory bowel disease with associated mesenteric stranding and a small amount of ascites. Mildly dilated fluid-filled distal small bowel which may reflect a partial small bowel obstruction due to thickening of the neoterminal ileum. Patient reports some nausea with a bought of emesis this AM. No fevers/chills, CP/SOB, diarrhea/constipation. Last BM was this AM, but not passing flatus. In regards to her Crohn's she has not been on any medication for the last 12 years. After her flare in Aug she was sent home on a steroid taper and was suppose to discuss with GI about starting a new med, but held off due to side effects and scheduling conflicts to discuss it further. Allergies Allergy/AdvReac Type Severity Reaction Status Date / Time Penicillins Allergy Intermediate AMOXICILLIN Verified 08/21/22 01:35 - RASH sulfamethoxazole [Bactrim] Allergy Intermediate Rash Verified 08/21/22 01:35 trimethoprim [Bactrim] Allergy Intermediate Rash Verified 08/21/22 01:35 Home Medications Medication Instructions Recorded Confirmed Type albuterol sulfate 2.5 mg/3 mL 2.5 mg inhalation QID PRN 08/21/22 11/08/22 History (0.083 %) solution for nebulization Shortness Of Breath cholecalciferol (vitamin D3) 50 50 mcg PO DAILY 08/21/22 11/08/22 History mcg (2,000 unit) capsule (Vitamin D3) escitalopram oxalate 10 mg tablet 10 mg PO DAILY 08/21/22 11/08/22 History levothyroxine 25 mcg tablet 25 mcg PO DAILYBB 08/21/22 11/08/22 History sumatriptan succinate 6 mg/0.5 mL 6 mg subcut BID PRN Headache 08/21/22 11/08/22 History subcutaneous cartridge (refill) lisinopril 20 mg tablet 20 mg PO DAILY #30 tabs 08/26/22 11/08/22 Rx atorvastatin 20 mg tablet 20 mg PO HS 11/08/22 11/08/22 History omeprazole 40 mg capsule,delayed 40 mg PO DAILY 11/08/22 11/08/22 History release Patient History Medical History Crohn's disease Emphysema lung GERD (gastroesophageal reflux disease) High cholesterol Hypertension Hypothyroidism Migraine Psoriasis PVD (peripheral vascular disease) Surgical History History of colectomy History of colonoscopy History of esophagogastroduodenoscopy (EGD) Family History Father FH: sudden cardiac (SCD) Other Diabetes Social History Smoking Status: Current every day smoker Tobacco Type: Cigarettes Cigarettes Per Day: 15; Do You Dip or Chew Tobacco: No; Hx Alcohol Use: Yes Hx Substance Use: No Preferred Language: Salvadorean Communication Ability: Effective 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 Beliefs That Will Affect Care: None Current Living Situation: Spouse Feels Safe at Home: Yes Assistive Devices: None Review of Systems Constitutional: no fever and no chills Respiratory: no dyspnea Cardiovascular: no chest pain Gastrointestinal: + abdominal pain, + bloating, + nausea and + vomiting; no excessive flatulence Physical Exam Physical Exam: awake/alert, no distress Constitutional: no acute distress Respiratory: normal respiratory effort Gastrointestinal (Abdomen): Inspection/Auscultation: + abdomen distended (mild) Percussion/Palpation: + abdomen tender (ttp on R mid abdomen) and abdomen soft; no guarding and abdomen not rigid Results & Data Vital Signs (Past 12 Hours) Vital Signs Temp Pulse Pulse Resp BP BP Pulse Ox 11/08/22 14:12 67 11/08/22 14:24 63 18 125/76 94 11/08/22 13:30 71 18 102/62 97 11/08/22 10:07 76 11/08/22 11:00 59 L 18 151/95 H 95 11/08/22 09:55 98 11/08/22 09:55 79 18 146/103 H 98 11/08/22 09:16 36.4 C L 88 14 144/103 H 97 O2 Del Method 11/08/22 14:12 11/08/22 14:24 Room Air 11/08/22 13:30 Room Air 11/08/22 10:07 11/08/22 11:00 Room Air 11/08/22 09:55 Room Air 11/08/22 09:55 Room Air 11/08/22 09:16 Room Air Diagnostic Findings CT OF THE ABDOMEN AND PELVIS WITH CONTRAST CLINICAL HISTORY: Abdominal pain and nausea. Crohn's disease. History of small bowel obstruction. COMPARISON STUDY: CT of the abdomen and pelvis August 21, 2022 and KUB August 25, 2022. TECHNIQUE: Following IV administration of 88 mL of Optiray, axial images of the abdomen and pelvis were obtained from the lung bases to the proximal femurs. Images were reviewed in the axial, sagittal, and coronal planes. IV contrast was administered without complication. Automated exposure control was utilized for the study. A dose lowering technique was utilized adhering to the principles of ALARA. CT DOSE: 352.78 mGycm FINDINGS: Lung bases are unremarkable. No pneumatosis, free air or portal venous gas is present. Subsequent to the medial lateral segment hepatic lesion is unchanged. This favors a cyst. There are no new hepatic lesions. There is no biliary or pancreatic ductal dilatation. Spleen, adrenal glands and kidneys are unremarkable. Gallbladder is slightly distended. There are postoperative findings consistent with ileocecectomy. Circumferential wall thickening of the neoterminal ileum is best shown on axial image 240 of 441. There is mucosal enhancement. This suggests active Crohn's. There is also mild wall thickening and mucosal hyperemia of several distal ileal loops with mesenteric stranding and a small amount of fluid. The distal small bowel is mildly dilated. The remaining proximal portion of the colon is fluid-filled and mildly dilated as well. There is sigmoid diverticulosis. No evidence for acute diverticulitis. There is no abscess within the abdomen or the pelvis. Major vasculature is patent. There is no lymphadenopathy. No fistulas are identified. IMPRESSION: Prior ileocecectomy. Similar findings to CT of August 21, 2022 with moderate circumferential wall thickening and mucosal hyperemia of the terminal ileum and mild wall thickening and hyperemia of several distal ileal loops which favors active inflammatory bowel disease with associated mesenteric stranding and a small amount of ascites. Mildly dilated fluid-filled distal small bowel which may reflect a partial small bowel obstruction due to thickening of the neoterminal ileum. No abscess. No fistulas. ACT 112: Negative or not required by law. Electronically signed by: Alfonzo Moss M.D. 11/08/2022 12:17 PM PG Care Time/CCT Total # of Minutes Spent Total Time Spent with Patient: Total time spent is greater than 50% in coordination of care (as documented) at patient's floor/unit and/or counseling patient: Coding Level of Care Code 65762 IN/OBS CONSULT LVL 3,45M Diagnoses Partial small bowel obstruction K56.600 Crohn's disease K50.90
--- NOTE | 2022-11-08 14:48 | Emergency Department Note ---
Impression & Plan Partial small bowel obstruction, Crohn's disease, Abdominal pain ED Provider Note NAME: CB SANDHU AGE: 57 SEX: F ARRIVES VIA: Walk-In INFORMANT: Patient ED PROVIDER(S): Rowdy Langfodr MD CHIEF COMPLAINT: Abdominal pain, nausea PLAN: Disposition: Admit MEDICAL DECISION MAKING: The patient is a pleasant 57-year-old woman with a past medical history of Croh n's with history of bowel resection remotely who presents to the emergency department accompanied by her for evaluation of worsening abdominal pain with nausea and vomiting developing since yesterday. She reports her symptoms are reminiscent to her recent partial bowel obstruction for which she was admitted to this facility in August managed conservatively with nasogastric tube and then resolved. She otherwise denies any recent fevers, chills, cough, congestion, urinary symptoms. On my evaluation patient is no acute distress, afebrile stable vital signs. She appears clinically dry. She is generalized abdominal discomfort without discrete tenderness. Abdomen is soft and not distended. EKG without overt acute ischemia. WBC 12K nonspecific. H/H platelets within normal limits. Chemistry without metabolic acidosis. Electrolytes and LFTs unremarkable. High-sensitivity trop onin 3.0, within normal limits. ESR and CRP are not elevated. Lipase within normal limits. UA without evidence of infection. COVID-19 RNA, LORA test was negative. CT of the abdomen pelvis was performed and demonstrates similar findings to patient's CT in August with evidence of partial bowel obstruction as well as suspicion for underlying Crohn's flare. Patient was treated with IV fluid hydration, APAP, Zofran, morphine. Given CT findings patient was referred to hospital service for admission. Case was discussed with Kasia Morse, Armida PAC, with Dr. Mat Huffman hospitalist who will evaluate the patient for admission. The patient is declining NG tube at this time. If symptoms worsen NGT to be reconsidered. Further management per admitting team. Triage Nursing notes reviewed and agree them. Prior/outside medical records reviewed Vital Signs: reviewed Differential diagnosis: Gastroenteritis, food borne illness, infections, appendicitis, diverticulitis, inflammatory bowel disease, obstruction, GI bleed, biliary pathology, volvulus, as well as other pathologies. ER treatment provided: See below. Diagnostics interpreted by me: ECG: Normal sinus rhythm, 70 bpm, no ectopy, no overt ST elevation or depression, QTc 436, QRS 80 Cardiac Monitoring: An order for continuous cardiac monitoring was placed and demonstrated Normal sinus rhythm, 70 bpm, no ectopy. Laboratory studies: See below Imaging studies: See below Consultation(s): Kasia Morse, Armida PAC, with Dr. Mat Huffman hospitalist HPI: The patient is a pleasant 57-year-old woman with a past medical history of Crohn's with history of bowel resection remotely who presents to the emergency department accompanied by her for evaluation of worsening abdominal pain with nausea and vomiting developing since yesterday. She reports her symptoms are reminiscent to her recent partial bowel obstruction for which she was admitted to this facility in August managed conservatively with nasogastric tube and then resolved. She otherwise denies any recent fevers, chills, cough, congestion, urinary symptoms. ROS: See above HPI for pertinent positives & negatives. A total of 10 systems reviewed and were otherwise negative. VITALS:See Below PHYSICAL EXAMINATION: GENERAL: Awake, alert, uncomfortable-appearing, in no distress HENT: Normocephalic, atraumatic. Oropharynx with dry mucous membranes and otherwise unremarkable. EYES: Normal conjunctiva. Sclera non-icteric. NECK: Supple. No nuchal rigidity. FROM. No JVD. RESPIRATORY: Clear to auscultation. CARDIAC: Regular rate, normal rhythm. Extremities warm and well perfused. Pulses equal. ABDOMEN: Soft, non-distended. Generalized abdominal discomfort without discrete tenderness. RECTAL: Deferred. MUSCULOSKELETAL: Chest examination reveals no tenderness. The back is symmetrical on inspection without obvious abnormality. There is no CVA tenderness to palpation. No joint edema. LOWER EXTREMITIES: Calves are equal size bilaterally and non-tender. No edema. No discoloration. NEURO: Normal sensorium. No sensory or motor deficits noted. SKIN: No rash or jaundice noted. Rowdy Langford MD Past Med/Surg History Medical History Crohn's disease Emphysema lung GERD (gastroesophageal reflux disease) High cholesterol Hypertension Hypothyroidism Migraine Psoriasis PVD (peripheral vascular disease) Surgical History History of colectomy History of colonoscopy History of esophagogastroduodenoscopy (EGD) Family History Father FH: sudden cardiac (SCD) Other Diabetes Social History Smoking Status: Current every day smoker Tobacco Type: Cigarettes Cigarettes Per Day: 15; Do You Dip or Chew Tobacco: No; Hx Alcohol Use: Yes Hx Substance Use: No Preferred Language: Mongolian Communication Ability: Effective Mixed [employer] Required: No Beliefs That Will Affect Care: None Current Living Situation: Spouse Feels Safe at Home: Yes Assistive Devices: None Allergies Allergies Allergy/AdvReac Type Severity Reaction Status Date / Time Penicillins Allergy Intermediate AMOXICILLIN Verified 08/21/22 01:35 - RASH sulfamethoxazole [Bactrim] Allergy Intermediate Rash Verified 08/21/22 01:35 trimethoprim [Bactrim] Allergy Intermediate Rash Verified 08/21/22 01:35 Home Meds Home Medications Medication Instructions Recorded Confirmed albuterol sulfate 2.5 mg/3 mL 2.5 mg inhalation QID PRN 08/21/22 11/08/22 (0.083 %) solution for nebulization Shortness Of Breath cholecalciferol (vitamin D3) 50 50 mcg PO DAILY 08/21/22 11/08/22 mcg (2,000 unit) capsule (Vitamin D3) escitalopram oxalate 10 mg tablet 10 mg PO DAILY 08/21/22 11/08/22 levothyroxine 25 mcg tablet 25 mcg PO DAILYBB 08/21/22 11/08/22 sumatriptan succinate 6 mg/0.5 mL 6 mg subcut BID PRN Headache 08/21/22 11/08/22 subcutaneous cartridge (refill) atorvastatin 20 mg tablet 20 mg PO HS 11/08/22 11/08/22 omeprazole 40 mg capsule,delayed 40 mg PO DAILY 11/08/22 11/08/22 release Previous Rx's Medication Instructions Recorded lisinopril 20 mg tablet 20 mg PO DAILY #30 tabs 08/26/22 Results & Data (ED) Vital Signs Vital Signs - 24 hr 11/08/22 09:16 11/08/22 09:55 11/08/22 09:55 Temperature 36.4 C L Temperature Source Temporal Artery Scan Pulse Rate 88 Pulse Rate [Apical] 79 Pulse Rhythm [Apical] Pulse Strength [Apical] Respiratory Rate 14 18 Respiratory Effort / Characteristics Non-Labored Respiratory Depth Normal Respiratory Pattern Regular Blood Pressure 144/103 H Blood Pressure [Right Arm] 146/103 H Blood Pressure Mean 116 Blood Pressure Mean [Right Arm] 117 Pulse Oximetry 97 98 98 Oxygen Delivery Method Room Air Room Air Room Air Sepsis New/Unexplained Change in Mental Status No Sepsis Action Taken by Nursing No Action Required 11/08/22 11:00 11/08/22 10:07 11/08/22 13:30 Temperature Temperature Source Pulse Rate 76 Pulse Rate [Apical] 59 L 71 Pulse Rhythm [Apical] Pulse Strength [Apical] Respiratory Rate 18 18 Respiratory Effort / Characteristics Non-Labored Respiratory Depth Normal Respiratory Pattern Regular Blood Pressure Blood Pressure [Right Arm] 151/95 H 102/62 Blood Pressure Mean Blood Pressure Mean [Right Arm] 113 75 Pulse Oximetry 95 97 Oxygen Delivery Method Room Air Room Air Sepsis New/Unexplained Change in Mental Status Sepsis Action Taken by Nursing 11/08/22 14:24 11/08/22 14:12 Temperature Temperature Source Pulse Rate 67 Pulse Rate [Apical] 63 Pulse Rhythm [Apical] Regular Pulse Strength [Apical] Normal Respiratory Rate 18 Respiratory Effort / Characteristics Non-Labored Respiratory Depth Normal Respiratory Pattern Regular Blood Pressure Blood Pressure [Right Arm] 125/76 Blood Pressure Mean Blood Pressure Mean [Right Arm] 92 Pulse Oximetry 94 Oxygen Delivery Method Room Air Sepsis New/Unexplained Change in Mental Status Sepsis Action Taken by Nursing Laboratory Data 11/08/22 09:22 11/08/22 09:22 Lab Results 11/08/22 11/08/22 11/08/22 Range/Units 09:22 09:22 09:22 WBC 12.28 H (4.8-10.8) K/ul RBC 5.03 (4.20-5.40) M/uL Hgb 15.6 (12.0-16.0) g/dl Hct 44.1 (37.0-47.0) % MCV 87.7 (80.0-100.0) fL MCH 31.0 (25.0-34.0) pg MCHC 35.4 (32.0-36.0) g/dL RDW Std Deviation 49.6 H (36.4-46.3) fL RDW Coeff of Kathia 15.6 H (11.5-14.5) % Plt Count 296 (130-400) K/uL MPV 9.6 (9.4-12.4) fL Immature Gran % (Auto) 0.2 % Neut % (Auto) 74.8 % Lymph % (Auto) 18.2 % [place] % (Auto) 5.3 % Eos % (Auto) 0.8 % Baso % (Auto) 0.7 % Neut # (Auto) 9.19 H (1.40-6.50) K/uL Lymph # (Auto) 2.23 (1.2-3.4) K/uL [place] # (Auto) 0.65 H (0.11-0.59) K/uL Eos # (Auto) 0.10 (0-0.50) K/uL Baso # (Auto) 0.08 (0-0.2) K/uL Immature Gran # (Auto) 0.03 (0.01-0.20) K/uL ESR 11 (0-30) mm/hr Sodium 138 (136-145) mmol/L Potassium 4.4 (3.5-5.1) mmol/L Chloride 105 (98-107) mmol/L Carbon Dioxide 22 (21-32) mmol/L Anion Gap 11 (3-11) BUN 12 (6-23) mg/dl Creatinine 0.70 (0.6-1.2) mg/dl Est Cr Clr Drug Dosing 78.8 ml/min Est GFR ( Amer) 110.7 ml/min Est GFR (Non-Af Amer) 95.5 ml/min BUN/Creatinine Ratio 17.1 (10-20) Glucose 116 H (70-99(Fasting)) mg/dl Calcium 10.0 (8.6-10.3) mg/dl Total Bilirubin 0.9 (0.2-1.0) mg/dl AST 26 (13-39) U/L ALT 20 (7-52) U/L Alkaline Phosphatase 103 (34-104) U/L Troponin I High Sens 3.0 (0-14) pg/ml C-Reactive Protein < 0.50 (0-0.5) mg/dl Total Protein 7.8 (6.0-8.3) gm/dl Albumin 4.9 (3.4-5.0) gm/dl Globulin 2.9 (2.5-4.0) gm/dl Albumin/Globulin Ratio 1.7 (0.9-2) Lipase 11 (11-82) U/L Urine Color Urine Appearance (Clear) Urine pH (4.5-7.5) Ur Specific [place] (1.000-1.030) Urine Protein (Negative) Urine Glucose (UA) (Negative) Urine Ketones (Negative) Urine Blood (Negative) Urine Nitrite (Negative) Urine Bilirubin (Negative) Urine Urobilinogen (Negative) Ur Leukocyte Esterase (Negative) SARS-CoV-2, RNA, NAAT (NEGATIVE) 11/08/22 11/08/22 Range/Units 11:57 Unknown WBC (4.8-10.8) K/ul RBC (4.20-5.40) M/uL Hgb (12.0-16.0) g/dl Hct (37.0-47.0) % MCV (80.0-100.0) fL MCH (25.0-34.0) pg MCHC (32.0-36.0) g/dL RDW Std Deviation (36.4-46.3) fL RDW Coeff of Kathia (11.5-14.5) % Plt Count (130-400) K/uL MPV (9.4-12.4) fL Immature Gran % (Auto) % Neut % (Auto) % Lymph % (Auto) % [place] % (Auto) % Eos % (Auto) % Baso % (Auto) % Neut # (Auto) (1.40-6.50) K/uL Lymph # (Auto) (1.2-3.4) K/uL [place] # (Auto) (0.11-0.59) K/uL Eos # (Auto) (0-0.50) K/uL Baso # (Auto) (0-0.2) K/uL Immature Gran # (Auto) (0.01-0.20) K/uL ESR (0-30) mm/hr Sodium (136-145) mmol/L Potassium (3.5-5.1) mmol/L Chloride (98-107) mmol/L Carbon Dioxide (21-32) mmol/L Anion Gap (3-11) BUN (6-23) mg/dl Creatinine (0.6-1.2) mg/dl Est Cr Clr Drug Dosing ml/min Est GFR ( Amer) ml/min Est GFR (Non-Af Amer) ml/min BUN/Creatinine Ratio (10-20) Glucose (70-99(Fasting)) mg/dl Calcium (8.6-10.3) mg/dl Total Bilirubin (0.2-1.0) mg/dl AST (13-39) U/L ALT (7-52) U/L Alkaline Phosphatase (34-104) U/L Troponin I High Sens (0-14) pg/ml C-Reactive Protein (0-0.5) mg/dl Total Protein (6.0-8.3) gm/dl Albumin (3.4-5.0) gm/dl Globulin (2.5-4.0) gm/dl Albumin/Globulin Ratio (0.9-2) Lipase (11-82) U/L Urine Color Yellow Urine Appearance Clear (Clear) Urine pH 5.5 (4.5-7.5) Ur Specific [place] 1.020 (1.000-1.030) Urine Protein Negative (Negative) Urine Glucose (UA) Negative (Negative) Urine Ketones Negative (Negative) Urine Blood Negative (Negative) Urine Nitrite Negative (Negative) Urine Bilirubin Negative (Negative) Urine Urobilinogen Negative (Negative) Ur Leukocyte Esterase Negative (Negative) SARS-CoV-2, RNA, NAAT NEGATIVE (NEGATIVE) Administered Medications Discontinued Medications Sodium Chloride (Nss 1000ml) 1,000 mls @ 999 mls/hr IV .Q1H1M ONE Stop: 11/08/22 10:22 Last Infusion: 11/08/22 11:34 Dose: 0 mls/hr Documented By: Admin: 11/08/22 10:23 Dose: 999 mls/hr Documented By: JEWELL Acetaminophen (Ofirmev) 1,000 mg in 100 mls @ 400 mls/hr IV NOW STA Stop: 11/08/22 10:11 Last Infusion: 11/08/22 11:04 Dose: 0 mls/hr Documented By: Admin: 11/08/22 10:23 Dose: 400 mls/hr Documented By: JEWELL Ioversol (Optiray 320 100ml) 88 ml IV ONCE ONE Stop: 11/08/22 11:48 Last Admin: 11/08/22 11:47 Dose: 88 ml Documented By: JOSY Morphine Sulfate (Morphine Sulfate 4 Mg/Ml 1 Ml Carp\Vial) 4 mg IV NOW STA Stop: 11/08/22 09:58 Last Admin: 11/08/22 10:23 Dose: 4 mg Documented By: JEWELL Morphine Sulfate (Morphine Sulfate 2 Mg/Ml Carp) 2 mg IV NOW STA Stop: 11/08/22 14:08 Last Admin: 11/08/22 14:22 Dose: 2 mg Documented By: JEWELL Ondansetron HCl (Ondansetron Inj 2 Mg/Ml 2 Ml Vial) 4 mg IV NOW STA Stop: 11/08/22 09:58 Last Admin: 11/08/22 10:23 Dose: 4 mg Documented By: JEWELL Imaging Data Radiologist's Impression: Abdomen/Pelvis CT 11/08/22 09:58 CT OF THE ABDOMEN AND PELVIS WITH CONTRAST CLINICAL HISTORY: Abdominal pain and nausea. Crohn's disease. History of small bowel obstruction. COMPARISON STUDY: CT of the abdomen and pelvis August 21, 2022 and KUB August 25, 2022. TECHNIQUE: Following IV administration of 88 mL of Optiray, axial images of the abdomen and pelvis were obtained from the lung bases to the proximal femurs. Images were reviewed in the axial, sagittal, and coronal planes. IV contrast was administered without complication. Automated exposure control was utilized for the study. A dose lowering technique was utilized adhering to the principles of ALARA. CT DOSE: 352.78 mGycm FINDINGS: Lung bases are unremarkable. No pneumatosis, free air or portal venous gas is present. Subsequent to the medial lateral segment hepatic lesion is unchanged. This favors a cyst. There are no new hepatic lesions. There is no biliary or pancreatic ductal dilatation. Spleen, adrenal glands and kidneys are unremarkable. Gallbladder is slightly distended. There are postoperative findings consistent with ileocecectomy. Circumferential wall thickening of the neoterminal ileum is best shown on axial image 240 of 441. There is mucosal enhancement. This suggests active Crohn's. There is also mild wall thickening and mucosal hyperemia of several distal ileal loops with mesenteric stranding and a small amount of fluid. The distal small bowel is mildly dilated. The remaining proximal portion of the colon is fluid-filled and mildly dilated as well. There is sigmoid diverticulosis. No evidence for acute diverticulitis. There is no abscess within the abdomen or the pelvis. Major vasculature is patent. There is no lymphadenopathy. No fistulas are identified. IMPRESSION: Prior ileocecectomy. Similar findings to CT of August 21, 2022 with moderate circumferential wall thickening and mucosal hyperemia of the terminal ileum and mild wall thickening and hyperemia of several distal ileal loops which favors active inflammatory bowel disease with associated mesenteric stranding and a small amount of ascites. Mildly dilated fluid-filled distal small bowel which may reflect a partial small bowel obstruction due to thickening of the neoterminal ileum. No abscess. No fistulas. ACT 112: Negative or not required by law. Electronically signed by: Alfonzo Moss M.D. 11/08/2022 12:17 PM Discharge Plan Visit Data Chief Complaint: Abdominal Pain Stated Complaint: ABDOMINAL PAIN, NAUSEA ED Provider: Rowdy Langford Discharge Problem: Partial small bowel obstruction, Crohn's disease, Abdominal pain Forms Stand Alone Forms: My [facility] [employer] Prescriptions Prescriptions: No Action atorvastatin 20 mg tablet 20 mg PO HS omeprazole 40 mg capsule,delayed release(DR/EC) 40 mg PO DAILY albuterol sulfate 2.5 mg /3 mL (0.083 %) Solution For Nebulization 2.5 mg INHALATION QID PRN (Reason: Shortness Of Breath) sumatriptan succinate 6 mg/0.5 mL Cartridge 6 mg SUBCUT BID PRN (Reason: Headache) levothyroxine 25 mcg Tablet 25 mcg PO DAILYBB Rx Instructions: NO RECORD OF THIS MED ON EXT MED HX. escitalopram oxalate 10 mg tablet 10 mg PO DAILY Rx Instructions: LAST FILLED 11/07/21 FOR 90 DAYS/90 TABS. cholecalciferol (vitamin D3) [Vitamin D3] 50 mcg (2,000 unit) Capsule 50 mcg PO DAILY lisinopril 20 mg Tablet 20 mg PO DAILY Qty: 30 0RF Referrals Referrals: Chung Yi PA-C [Primary Care Provider] -
[2022-11-08] MEDS ORDERED: ALBUTEROL 0.083% NEBU SOLN 3 ML VIAL NEB PRN (16:55)
[2022-11-08] MEDS ORDERED: ONDANSETRON INJ 2 MG/ML 2 ML VIAL IV PRN (16:55)
[2022-11-08] MEDS ORDERED: MoRPHine SULFATE 2 MG/ML CARP IV PRN (16:55)
[2022-11-08] MEDS ORDERED: ACETAMINOPHEN 1,000 MG/100 ML VIAL IV PRN (16:55)
[2022-11-08] MEDS: SODIUM CHLORIDE 0.9% 1000ML 1,000 ML IV SCH (16:58)
[2022-11-08] MEDS: PANTOprazole 40 MG in SYRINGE 0 ML IV SCH (17:42)
[2022-11-08] MEDS: ENOXAPARIN INJ 40 MG/0.4 ML SYR SQ SCH (17:42)
[2022-11-08] MEDS: methylPREDNISolone 20 MG in SYRINGE 0 ML IV SCH (17:42)
[2022-11-09] MEDS: methylPREDNISolone 20 MG in SYRINGE 0 ML IV SCH ×3 (01:25→17:56)
--- NOTE | 2022-11-09 05:32 | Surgery Progress Note ---
Date of Service November 09, 2022 Assessment & Plan (1) Partial small bowel obstruction: Plan: The patient has been admitted on the medical service. We recommend proceeding as follows: Provide analgesics provide antiemetics Continue n.p.o. status for the present time. Consideration be given to advancing her diet when she has further improvement of her clinical status Continue IV fluids while n.p.o. As patient's partial small bowel obstruction is felt to be related to a Crohn's flare, she has been seen by gastroenterology and steroids have been initiated. She is current receiving methylprednisolone 20 mg IV every 8 hours. We will continue this medication at the the discretion of the GI service. Patient has a KUB and labs ordered for this morning which are pending. We will check these when they are available Lovenox is in place for DVT prevention Admission and Anticipated Discharge Date Admission Date: November 08, 2022 Supervising Physician Co-Signing Physician Notes Dr. Cotopatient feels much better and is passing gas She would like to try to some liquids Currently on IV steroids We will consider trying her on some clear liquids KUB is pending but I suspect it will not be significantly different Subjective Patient is resting comfortably in bed. She has noted some clinical improvement since admission. She notes that her pain has markedly improved and she is passing flatus. She has not yet had a bowel movement. She denies any nausea or vomiting. Physical Exam Gastrointestinal (Abdomen): Bowel sounds are present. Abdomen is soft, nondistended, and nonrigid. There is minimal pain with palpation. Results & Data Vital Signs (Past 12 Hours) Vital Signs Temp Pulse Resp BP Pulse Ox O2 Del Method 11/08/22 22:28 36.7 C 60 16 104/63 94 Room Air PG Care Time/CCT Total # of Minutes Spent Total Time Spent with Patient: Total time spent is greater than 50% in coordination of care (as documented) at patient's floor/unit and/or counseling patient: Coding Level of Care Code 92937 SUB INP/OBS CARE 25MIN Diagnoses Partial small bowel obstruction K56.600
[2022-11-09] MEDS: LEVOTHYROXINE SODIUM 25 MCG TABLET PO SCH (05:36)
[2022-11-09] MEDS: SODIUM CHLORIDE 0.9% 1000ML 1,000 ML IV SCH (05:36)
[2022-11-09 07:27] LABS: Alanine Aminotransferase 13 U/L (7-52); Albumin Globulin Ratio 1.6 (0.9-2); Albumin Level 3.8 gm/dl (3.4-5.0); Alkaline Phosphatase 78 U/L (34-104); Anion Gap 8 (3-11); BUN Creatinine Ratio 17.9 (10-20); Bilirubin,Total 0.5 mg/dl (0.2-1.0); Blood Urea Nitrogen 10 mg/dl (6-23); Calcium 8.8 mg/dl (8.6-10.3); Carbon Dioxide 21 mmol/L (21-32); Chloride 111 mmol/L (98-107); Creatinine Clr Calc Pharmacy 98.5 ml/min; Est GFR (African American) 119.1 ml/min; Est GFR (Non-African American) 102.8 ml/min; Globulin 2.4 gm/dl (2.5-4.0); Glucose 113 mg/dl (70-99(Fasting)); Sodium 140 mmol/L (136-145); Total Protein 6.2 gm/dl (6.0-8.3)
[2022-11-09] MEDS: lisinopril 20 MG TAB PO SCH (08:07)
[2022-11-09] MEDS: ESCITALOPRAM OXALATE 10 MG TAB PO SCH (08:07)
--- NOTE | 2022-11-09 08:09 | XRay Report ---
KUB CLINICAL HISTORY: Partial small bowel obstruction. FINDINGS: An AP, portable, supine abdominal radiograph is compared to study dated 08/25/2022 and corre lated with abdominal CT dated 11/08/2022. Surgery tube projects over the right midabdomen. There is no radiographic evidence of high-grade obstruction. Mildly distended and gas-filled loops of small casandra l persist. These measure up to 2.4 cm. No evidence of intraperitoneal free air is seen on this supine image. There are no abnormal abdominal calcifications. Phleboliths are observed in the pelvis. The b chata structures appear intact. IMPRESSION: 1. Postsurgical change with no radiographic evidence of high-grade obstruction. 2. There are mildly distended and gas-filled loops of small bowel. This could represent an enteritis or possibly low grade/partial obstruction. Correlate clinically. Electronically signed by: Tj Kimball M.D. 11/09/2022 8:08 AM
[2022-11-09 08:58] LABS: Basophils # (auto) 0.02 K/uL (0-0.2); Basophils % (auto) 0.4 %; Hematocrit (blood only) 37.7 % (37.0-47.0); Hemoglobin 12.8 g/dl (12.0-16.0); Immature Granulocytes # (auto) 0.01 K/uL (0.01-0.20); Immature Granulocytes % (auto) 0.2 %; Lymphocytes % (auto) 26.8 %; Mean Corpuscular Hemoglobin 30.7 pg (25.0-34.0); Mean Corpuscular Volume 90.4 fL (80.0-100.0); Mean Platelet Volume 9.4 fL (9.4-12.4); Monocytes # (auto) 0.09 K/uL (0.11-0.59); Monocytes % (auto) 1.6 %; Neutrophils # (auto) 3.97 K/uL (1.40-6.50); Platelet Count 297 K/uL (130-400); RDW Coefficient of Variation 15.6 % (11.5-14.5); Red Blood Count 4.17 M/uL (4.20-5.40); White Blood Count 5.59 K/ul (4.8-10.8)
--- NOTE | 2022-11-09 08:58 | Hospitalist Progress Note ---
Date of Service November 09, 2022 Assessment & Plan (1) Partial small bowel obstruction: (2) Crohn's disease: (3) Abdominal pain: Plan: Patient is 57-year-old female with PMH Crohn's, h/o right hemicolectomy, HTN, HLD, Emphysema, tobacco abuse, migraine, hypothyroidism presented to ER with complaint of N/V, abdominal pain x 1 day. Denies fever, chills, hematemesis, hematochezia, melena, diarrhea. In ER vitals stable. WBC: 12 CT abdomen/pelvis: Prior ileocecectomy. Similar findings to CT of August 21, 2022 with moderate circumferential wall thickening and mucosal hyperemia of the terminal ileum and mild wall thickening and hyperemia of several distal ileal loops which favors active inflammatory bowel disease with associated mesenteric stranding and a small amount of ascites. Mildly dilated fluid-filled distal small bowel which may reflect a partial small bowel obstruction due to thickening of the neoterminal ileum. No abscess. No fistulas. In ER given 1L NSS, IV Tylenol, morphine, Zofran Patient denied NG tube in ER Tylenol IV as needed pain, morphine as needed severe pain however try to limit use Zofran as needed for nausea GI consulted Solu-Medrol 20 mg every 8 hours per GI recommendations. Keep pt on Prednisone 40mg daily after DC until she receives TNF for her Crohn's- outpt GI provider (GWEN Lee) General surgery consult - can start clear liquid diet Follow KUB Pt had BM today - stool formed , no blood in thestool Monitor CBC, CMP in a.m. (4) Hypertension: Plan: Continue lisinopril (5) Hypothyroidism: Plan: Continue levothyroxine (6) High cholesterol: Plan: Hold atorvastatin tonight and reassess tomorrow (7) Emphysema lung: Plan: No signs acute exacerbation Albuterol as needed (8) GERD (gastroesophageal reflux disease): Plan: Switching home oral PPI to IV PPI for now DVT Prophylaxis: Lovenox SQ Full Code as per discussion with pt Follows with Chung Yi PA-C for routine care Admission and Anticipated Discharge Date Admission Date: November 08, 2022 Subjective Pt seen in follow up of Crohn's dis., partial SBO Currently laying in bed, in no acute distress No fevers chills chest pain shortness of breath Abdomen feels much better, she did have a bowel movement today reports stool to be formed and without any blood. Seen by GI, and surgery, started on clear liquid diet today Review of Systems Review of Systems: All systems reviewed & are unremarkable except as noted in Subjective Physical Exam Physical Exam: General: no distress, WDWN Head: normocephalic, atraumatic Eyes: conjunctiva non-injected, anicteric ENT: normal inspection external ears, nose, mucous membranes moist Neck: supple Lungs: clear, no respiratory distress, no wheezing/rhonchi/rales CV: RRR, no murmur, no pretibial edema Abd: normal BS, mildly distended, soft, tenderness to palp much improved/resolved Ext: moves extremities Neuro: A&O x 3, no focal deficits noted, normal affect Skin: warm, dry Results & Data Results & Data Vital Signs (Past 12 Hours) Vital Signs Temp Pulse Resp BP Pulse Ox O2 Del Method 11/09/22 07:04 36.4 C L 63 16 111/76 95 Room Air 11/08/22 22:28 36.7 C 60 16 104/63 94 Room Air Laboratory Results 11/09/22 11/09/22 11/09/22 Range/Units 08:43 06:02 06:02 WBC 5.59 Cancelled RBC 4.17 L Cancelled Hgb 12.8 Cancelled Hct 37.7 Cancelled MCV 90.4 Cancelled MCH 30.7 Cancelled MCHC 34.0 Cancelled RDW Std Deviation 51.0 H Cancelled RDW Coeff of Kathia 15.6 H Cancelled Plt Count 297 Cancelled MPV 9.4 Cancelled Immature Gran % (Auto) 0.2 Cancelled Neut % (Auto) 71.0 Cancelled Lymph % (Auto) 26.8 Cancelled [place] % (Auto) 1.6 Cancelled Eos % (Auto) 0.0 Cancelled Baso % (Auto) 0.4 Cancelled Neut # (Auto) 3.97 Cancelled Lymph # (Auto) 1.50 Cancelled [place] # (Auto) 0.09 L Cancelled Eos # (Auto) 0.00 Cancelled Baso # (Auto) 0.02 Cancelled Immature Gran # (Auto) 0.01 Cancelled Absolute Nucleated RBC Cancelled Nucleated RBC % (auto) Cancelled Neutrophils % (Manual) Cancelled Band Neutrophils % Cancelled Lymphocytes % (Manual) Cancelled Prolymphocyte % Cancelled Reactive Lymphs % (Man) Cancelled Monocytes % (Manual) Cancelled Eosinophils % (Manual) Cancelled Basophils % (Manual) Cancelled Metamyelocytes % (Man) Cancelled Myelocytes % (Man) Cancelled Promyelocytes % (Man) Cancelled Blast Cells % (Manual) Cancelled Plasma Cell % (Manual) Cancelled Other Cells % Cancelled Nucleated RBC % Cancelled Neutrophils # (Manual) Cancelled Band Neutrophils # Cancelled Total Absolute Neuts Cancelled Lymphocytes # (Manual) Cancelled Prolymphocyte # Cancelled Reactive Lymphs # Cancelled Total Abs Lymphocytes Cancelled Monocytes # (Manual) Cancelled Eosinophils # (Manual) Cancelled Basophils # (Manual) Cancelled Metamyelocytes # (Man) Cancelled Myelocytes # (Manual) Cancelled Promyelocytes # (Man) Cancelled Blast Cells # (Man) Cancelled Plasma Cell # (Manual) Cancelled Other Cells # Cancelled Nucleated RBCs # (Man) Cancelled Hypersegmented Neuts Cancelled Hyposegmented Neuts Cancelled Hypogranular Neuts Cancelled Large Granular Lymphs Cancelled # Lrg Granular Lymphs Cancelled Hairy Cells Cancelled Smudge Cells Cancelled Toxic Granulation Cancelled Toxic Vacuolation Cancelled Dohle Bodies Cancelled Maddie Rods Cancelled Platelet Estimate Cancelled Hypogranular Platelets Cancelled Giant Platelets Cancelled Platelet Satelliting Cancelled RBC Morphology Cancelled Polychromasia Cancelled Hypochromasia Cancelled Poikilocytosis Cancelled Basophilic Stippling Cancelled Anisocytosis Cancelled Microcytosis Cancelled Macrocytosis Cancelled Spherocytes Cancelled Pappenheimer Bodies Cancelled Sickle Cells Cancelled Target Cells Cancelled Tear Drop Cells Cancelled Ovalocytes Cancelled Stomatocytes Cancelled Mack-Griswold Bodies Cancelled Echinocytes Cancelled Acanthocytes (Spur) Cancelled Rouleaux Cancelled RBC Agglutinates Cancelled Schistocytes Cancelled [place]zary Cell Cancelled Sodium 140 (136-145) mmol/L Potassium TNP Chloride 111 H (98-107) mmol/L Carbon Dioxide 21 (21-32) mmol/L Anion Gap 8 (3-11) BUN 10 (6-23) mg/dl Creatinine 0.56 L (0.6-1.2) mg/dl Est Cr Clr Drug Dosing 98.5 ml/min Est GFR ( Amer) 119.1 ml/min Est GFR (Non-Af Amer) 102.8 ml/min BUN/Creatinine Ratio 17.9 (10-20) Glucose 113 H (70-99(Fasting)) mg/dl Calcium 8.8 (8.6-10.3) mg/dl Phosphorus (2.5-4.9) mg/dl Magnesium (1.7-2.4) mg/dl Total Bilirubin 0.5 (0.2-1.0) mg/dl AST TNP ALT 13 (7-52) U/L Alkaline Phosphatase 78 (34-104) U/L Total Protein 6.2 D (6.0-8.3) gm/dl Albumin 3.8 (3.4-5.0) gm/dl Globulin 2.4 L (2.5-4.0) gm/dl Albumin/Globulin Ratio 1.6 (0.9-2) Blood Parasites ID Cancelled 11/09/22 Range/Units 06:02 WBC RBC Hgb Hct MCV MCH MCHC RDW Std Deviation RDW Coeff of Kathia Plt Count MPV Immature Gran % (Auto) Neut % (Auto) Lymph % (Auto) [place] % (Auto) Eos % (Auto) Baso % (Auto) Neut # (Auto) Lymph # (Auto) [place] # (Auto) Eos # (Auto) Baso # (Auto) Immature Gran # (Auto) Absolute Nucleated RBC Nucleated RBC % (auto) Neutrophils % (Manual) Band Neutrophils % Lymphocytes % (Manual) Prolymphocyte % Reactive Lymphs % (Man) Monocytes % (Manual) Eosinophils % (Manual) Basophils % (Manual) Metamyelocytes % (Man) Myelocytes % (Man) Promyelocytes % (Man) Blast Cells % (Manual) Plasma Cell % (Manual) Other Cells % Nucleated RBC % Neutrophils # (Manual) Band Neutrophils # Total Absolute Neuts Lymphocytes # (Manual) Prolymphocyte # Reactive Lymphs # Total Abs Lymphocytes Monocytes # (Manual) Eosinophils # (Manual) Basophils # (Manual) Metamyelocytes # (Man) Myelocytes # (Manual) Promyelocytes # (Man) Blast Cells # (Man) Plasma Cell # (Manual) Other Cells # Nucleated RBCs # (Man) Hypersegmented Neuts Hyposegmented Neuts Hypogranular Neuts Large Granular Lymphs # Lrg Granular Lymphs Hairy Cells Smudge Cells Toxic Granulation Toxic Vacuolation Dohle Bodies Maddie Rods Platelet Estimate Hypogranular Platelets Giant Platelets Platelet Satelliting RBC Morphology Polychromasia Hypochromasia Poikilocytosis Basophilic Stippling Anisocytosis Microcytosis Macrocytosis Spherocytes Pappenheimer Bodies Sickle Cells Target Cells Tear Drop Cells Ovalocytes Stomatocytes Mack-Griswold Bodies Echinocytes Acanthocytes (Spur) Rouleaux RBC Agglutinates Schistocytes Sezary Cell Sodium (136-145) mmol/L Potassium Chloride (98-107) mmol/L Carbon Dioxide (21-32) mmol/L Anion Gap (3-11) BUN (6-23) mg/dl Creatinine (0.6-1.2) mg/dl Est Cr Clr Drug Dosing ml/min Est GFR ( Amer) ml/min Est GFR (Non-Af Amer) ml/min BUN/Creatinine Ratio (10-20) Glucose (70-99(Fasting)) mg/dl Calcium (8.6-10.3) mg/dl Phosphorus 4.1 (2.5-4.9) mg/dl Magnesium 2.1 (1.7-2.4) mg/dl Total Bilirubin (0.2-1.0) mg/dl AST ALT (7-52) U/L Alkaline Phosphatase (34-104) U/L Total Protein (6.0-8.3) gm/dl Albumin (3.4-5.0) gm/dl Globulin (2.5-4.0) gm/dl Albumin/Globulin Ratio (0.9-2) Blood Parasites ID Medications Administered Current Inpatient Medications Albuterol (Albuterol 0.083% Nebu Soln 3 Ml Vial) 2.5 mg NEB Q6R PRN; Protocol PRN Reason: Shortness Of Breath Or Wheezing Stop: 12/08/22 16:54 Enoxaparin Sodium (Enoxaparin Inj 40 Mg/0.4 Ml Syr) 40 mg SQ Q24H CATHERINE Stop: 12/08/22 16:59 Last Admin: 11/08/22 17:42 Dose: 40 mg Escitalopram Oxalate (Escitalopram Oxalate 10 Mg Tab) 10 mg PO DAILY CATHERINE Stop: 12/09/22 08:59 Last Admin: 11/09/22 08:07 Dose: 10 mg Acetaminophen (Ofirmev) 1,000 mg in 100 mls @ 400 mls/hr IV Q8H PRN PRN Reason: Mild-Mod Pain (Scale 1-6) Stop: 11/11/22 16:54 Sodium Chloride (Nss 1000ml) 1,000 mls @ 80 mls/hr IV .[id number] [facility] Stop: 11/09/22 17:54 Last Admin: 11/09/22 05:36 Dose: 80 mls/hr Pantoprazole Sodium 40 mg/ (Syringe) 10 mls @ 5 mls/min IV DAILY@1100 [facility] Stop: 11/10/22 16:59 Last Admin: 11/08/22 17:42 Dose: 5 mls/min Methylprednisolone 20 mg/ (Syringe) 0.32 mls @ 1.5 mls/min IV Q8H [facility] Stop: 12/08/22 17:29 Last Admin: 11/09/22 08:08 Dose: 1.5 mls/min Levothyroxine Sodium (Levothyroxine Sodium 25 Mcg Tablet) 25 mcg PO DAILYBB [facility] Stop: 12/09/22 06:29 Last Admin: 11/09/22 05:36 Dose: 25 mcg Lisinopril (Lisinopril 20 Mg Tab) 20 mg PO DAILY [facility] Stop: 12/09/22 08:59 Last Admin: 11/09/22 08:07 Dose: 20 mg Morphine Sulfate (Morphine Sulfate 2 Mg/Ml Carp) 2 mg IV Q4H PRN PRN Reason: Severe Pain (Scale 7, 8, 9,10) Stop: 11/22/22 16:54 Last Admin: 11/08/22 18:51 Dose: 2 mg Ondansetron HCl (Ondansetron Inj 2 Mg/Ml 2 Ml Vial) 4 mg IV Q6H PRN PRN Reason: Nausea Stop: 12/08/22 16:54
[2022-11-09 10:42] LABS: Magnesium 2.1 mg/dl (1.7-2.4)
[2022-11-09 10:48] LABS: Phosphorus 4.1 mg/dl (2.5-4.9)
[2022-11-09] MEDS: PANTOprazole 40 MG in SYRINGE 0 ML IV SCH (11:58)
[2022-11-09] MEDS: ENOXAPARIN INJ 40 MG/0.4 ML SYR SQ SCH (17:56)
[2022-11-10] MEDS: methylPREDNISolone 20 MG in SYRINGE 0 ML IV SCH ×2 (00:37→08:39)
--- NOTE | 2022-11-10 05:31 | Surgery Progress Note ---
Date of Service November 10, 2022 Assessment & Plan (1) Partial small bowel obstruction: Plan: The patient has been admitted on the medical service. We recommend proceeding as follows: Continue analgesics as needed provide antiemetics if needed Continue current diet for the present time. If patient continues to do well consideration can be given to placing her on solid food. The partial small bowel obstruction was felt to be related to a Crohn's flare. Gastroenterology has seen and and steroids have been initiated. She is current receiving methylprednisolone 20 mg IV every 8 hours. We will continue this medication at the the discretion of the GI service KUB was performed on 11/09/2022 and did not show any evidence of high-grade small bowel obstruction. However, there was some distended and gas filled loops of small bowel concerning for either an enteritis or a low-grade/partial small bowel obstruction. A.m. labs have been ordered. We will check these when available Lovenox is in place for DVT prevention Admission and Anticipated Discharge Date Admission Date: November 08, 2022 Supervising Physician Co-Signing Physician Notes Dr. Cotopatient feeling very well and tolerating full liquids We will advance to low fiber diet Could consider discharge home from a surgical standpoint We will need to have input from GI team as to acute treatment Currently receiving IV steroids Subjective Patient notes that she has had considerable improvement since admission. She has had her diet advanced to full liquids which she tolerated without exacerbating her abdominal pain. She denies any nausea or vomiting. She notes that she has had a bowel movement over the past 24 hours. Physical Exam Gastrointestinal (Abdomen): Abdomen is soft and nondistended. There is minimal pain with palpation. There is no rebound tenderness or guarding. Results & Data Vital Signs (Past 12 Hours) Vital Signs Temp Pulse Resp BP Pulse Ox O2 Del Method 11/09/22 21:44 36.6 C 54 L 16 110/69 94 Room Air PG Care Time/CCT Total # of Minutes Spent Total Time Spent with Patient: Total time spent is greater than 50% in coordination of care (as documented) at patient's floor/unit and/or counseling patient: Coding Level of Care Code 51734 SUB INP/OBS CARE 1/25MIN Diagnoses Partial small bowel obstruction K56.600
[2022-11-10] MEDS: LEVOTHYROXINE SODIUM 25 MCG TABLET PO SCH (06:30)
[2022-11-10 06:58] LABS: Hematocrit (blood only) 35.1 % (37.0-47.0); Mean Corpuscular Hemoglobin 30.4 pg (25.0-34.0); Mean Corpuscular Hgb Conc 34.2 g/dL (32.0-36.0); Mean Corpuscular Volume 88.9 fL (80.0-100.0); Mean Platelet Volume 9.8 fL (9.4-12.4); Platelet Count 291 K/uL (130-400); RDW Coefficient of Variation 15.8 % (11.5-14.5); RDW Standard Deviation 51.8 fL (36.4-46.3); Red Blood Count 3.95 M/uL (4.20-5.40); White Blood Count 6.96 K/ul (4.8-10.8)
[2022-11-10 07:18] LABS: Calcium 8.9 mg/dl (8.6-10.3); Est GFR (African American) 116.4 ml/min; Est GFR (Non-African American) 100.5 ml/min; Magnesium 2.1 mg/dl (1.7-2.4); Phosphorus 3.8 mg/dl (2.5-4.9); Potassium 3.9 mmol/L (3.5-5.1)
[2022-11-10] MEDS: lisinopril 20 MG TAB PO SCH (08:38)
[2022-11-10] MEDS: ESCITALOPRAM OXALATE 10 MG TAB PO SCH (08:39)
--- NOTE | 2022-11-10 11:35 | Discharge Summary ---
Date of Service November 10, 2022 Admission HPI Per Admitting Provider Patient is 57-year-old female with PMH Crohn's, h/o right hemicolectomy, HTN, HLD, Emphysema, tobacco abuse, migraine, hypothyroidism presented to ER with complaint of abdominal pain x 1 day. Patient states last night started with mid abdominal pain describing as cramping. Pain continued throughout the night and this morning. Also had some nausea and vomiting. Last episode of vomiting was prior to ER arrival. Reports had BM prior to ER arrival. Tried Tylenol last night without relief of abdominal cramping. History of hospitalization 08/21/2022- 08/26/2022 for partial small bowel obstruction, Crohn's disease flare, enteritis. Was treated with NG tube and IV Solu-Medrol. Discharged on prednisone taper. Patient states current abdominal pain feels similar as prior hospital admission in August. She reports she following with [facility] and Remicade was discussed however patient states has not pursued fully yet. Denies fever/chills, diaphoresis, hematemesis, diarrhea, hematochezia, melena, mucus in stool, PUGA, dizziness, syncope, neck pain, CP, SOB, cough, sore throat, rhinorrhea,paresthesias, weakness, extremity edema, rashes, urinary symptoms. History EGD 07/25/2022: Moderate Schatzki ring that was dilated Admission Exam Per Admitting Provider General: no distress, WDWN Head: normocephalic, atraumatic Eyes: conjunctiva non-injected, anicteric ENT: normal inspection external ears, nose, mucous membranes moist Neck: supple, trachea midline Lungs: clear, no respiratory distress, no wheezing/rhonchi/rales CV: RRR, no murmur, no pretibial edema Abd: normal BS, mildly distended, soft, +tenderness to palpation RLQ, periumbilical, LLQ Ext: no cyanosis, no calf tenderness Neuro: A&O x 3, no focal deficits noted, normal affect Skin: warm, dry Principal Diagnosis Crohn's disease, partial bowel obstruction Discharge Exam General: no distress, WDWN Head: normocephalic, atraumatic Eyes: conjunctiva non-injected, anicteric ENT: normal inspection external ears, nose, mucous membranes moist Neck: supple Lungs: clear, no respiratory distress, no wheezing/rhonchi/rales CV: RRR, no murmur, no pretibial edema Abd: normal BS, mildly distended, soft,non tenderness to palp (much improved/resolved) Ext: moves extremities Neuro: A&O x 3, no focal deficits noted, normal affect Skin: warm, dry Discharge Data Allergies Allergy/AdvReac Type Severity Reaction Status Date / Time Penicillins Allergy Intermediate AMOXICILLIN Verified 08/21/22 01:35 - RASH sulfamethoxazole [Bactrim] Allergy Intermediate Rash Verified 08/21/22 01:35 trimethoprim [Bactrim] Allergy Intermediate Rash Verified 08/21/22 01:35 Consultations 11/08/22 13:11 ED Decision to Admit Stat 11/08/22 16:55 Consult Gastroenterology Routine Consult General Surgery Routine Ordered Studies 11/08/22 09:58 CT abd pelvis IV con only Stat FINDINGS: Lung bases are unremarkable. No pneumatosis, free air or portal venous gas is present. Subsequent to the medial lateral segment hepatic lesion is unchanged. This favors a cyst. There are no new hepatic lesions. There is no biliary or pancreatic ductal dilatation. Spleen, adrenal glands and kidneys are unremarkable. Gallbladder is slightly distended. There are postoperative findings consistent with ileocecectomy. Circumferential wall thickening of the neoterminal ileum is best shown on axial image 240 of 441. There is mucosal enhancement. This suggests active Crohn's. There is also mild wall thickening and mucosal hyperemia of several distal ileal loops with mesenteric stranding and a small amount of fluid. The distal small bowel is mildly dilated. The remai chandler proximal portion of the colon is fluid-filled and mildly dilated as well. There is sigmoid diverticulosis. No evidence for acute diverticulitis. There is no abscess within the abdomen or the pelvis. Major vasculature is patent. There is no lymphadenopathy. No fistulas are identified. IMPRESSION: Prior ileocecectomy. Similar findings to CT of August 21, 2022 with moderate circumferential wall thickening and mucosal hyperemia of the terminal ileum and mild wall thickening and hyperemia of several distal ileal loops which favors active inflammatory bowel disease with associated mesenteric stranding and a small amount of ascites. Mildly dilated fluid-filled distal small bowel which may reflect a partial small bowel obstruction due to thickening of the neoterminal ileum. No abscess. No fistulas. Hospital Course (1) Partial small bowel obstruction: (2) Crohn's disease: (3) Abdominal pain: Patient is 57-year-old female with PMH Crohn's, h/o right hemicolectomy, HTN, HLD, Emphysema, tobacco abuse, migraine, hypothyroidism presented to ER with complaint of N/V, abdominal pain x 1 day. Denies fever, chills, hematemesis, hematochezia, melena, diarrhea. In ER vitals stable. WBC: 12 CT abdomen/pelvis: Prior ileocecectomy. Similar findings to CT of August 21, 2022 with moderate circumferential wall thickening and mucosal hyperemia of the terminal ileum and mild wall thickening and hyperemia of several distal ileal loops which favors active inflammatory bowel disease with associated mesenteric stranding and a small amount of ascites. Mildly dilated fluid-filled distal small bowel which may reflect a partial small bowel obstruction due to thickening of the neoterminal ileum. No abscess. No fistulas. In ER given 1L NSS, IV Tylenol, morphine, Zofran Tylenol IV as needed pain, morphine as needed severe pain however try to limit use Zofran as needed for nausea GI consulted Solu-Medrol 20 mg IV every 8 hours per GI recommendations. Keep pt on Prednisone 40mg daily after DC until she receives TNF for her Crohn's- outpt GI provider (GWEN Lee) General surgery consult - diet advanced to low fiber Pt had BM yesterday - stool formed , no blood in the stool She is feeling well, no more abd. pain, tolerating diet. She would like to be discharged home. Plan to DC on prednisone as above, follow up w/ GI. (4) Hypertension: Continue lisinopril (5) Hypothyroidism: Continue levothyroxine (6) High cholesterol: - atorvastatin (7) Emphysema lung: No signs acute exacerbation Albuterol as needed (8) GERD (gastroesophageal reflux disease): cont. PPI Total Time Total Time Spent Total Time Spent (In Minutes): 40 Discharge Plan Discharge Items Patient Disposition: Home - Self-Care Reason For Visit: ABD PAIN Discharge Diagnosis: Crohn's disease, partial bowel obstruction Activity: Per Instructions section Non-emergency contact: Primary Care Provider and Computer Support Specialist Call non-emergency contact if: you have any medication questions and your symptoms worsen Follow-up/Referrals: Chung Yi PA-C [Primary Care Provider] - Diet: Low Fiber and Low Fat Addtl Attending Provider Instructions: Follow-up with primary care physician and sped teacher. Take prednisone 40 mg daily. Discuss further with your sped teacher, Munir Greene, about further treatment. Pending Studies at Discharge: No Stand-Alone Forms: My [facility] [employer], Smoking Cessation Medications and DC Order Prescriptions: New prednisone 20 mg tablet 40 mg PO DAILY Qty: 20 0RF Continued atorvastatin 20 mg tablet 20 mg PO HS omeprazole 40 mg capsule,delayed release(DR/EC) 40 mg PO DAILY albuterol sulfate 2.5 mg /3 mL (0.083 %) Solution For Nebulization 2.5 mg INHALATION QID PRN (Reason: Shortness Of Breath) sumatriptan succinate 6 mg/0.5 mL Cartridge 6 mg SUBCUT BID PRN (Reason: Headache) levothyroxine 25 mcg Tablet 25 mcg PO DAILYBB Rx Instructions: NO RECORD OF THIS MED ON EXT MED HX. escitalopram oxalate 10 mg tablet 10 mg PO DAILY Rx Instructions: LAST FILLED 11/07/21 FOR 90 DAYS/90 TABS. cholecalciferol (vitamin D3) [Vitamin D3] 50 mcg (2,000 unit) Capsule 50 mcg PO DAILY lisinopril 20 mg Tablet 20 mg PO DAILY Qty: 30 0RF Discharge Orders: Discharge Order (Routine); Ordered 11/10/22 Ordered By: Rubens Melara Admission Data Admit Date/Time: 11/08/22 14:06 Attending Provider: Rubens Melara Admit Provider: Judson Rivero Primary Care Provider: Chung Yi Other Providers: Judson Rivero ; Katy Butts ; Tano Coto ; Lopez Calix
[2022-11-10] MEDS: PANTOprazole 40 MG in SYRINGE 0 ML IV SCH (12:13)
== END 2022-11-10 14:15 | disposition home or self-care (01) | DRG 387 ==
LOC: ED 09:11 → SUATTDRO 14:06 → INTOOBSV 14:06 → 3N 14:06

== ENCOUNTER 2025-07-05 09:06 | Observation (INO) ==
--- NOTE | 2025-07-05 09:18 | Emergency Department Note ---
Impression & Plan Atypical chest pain, Neck pain, Tobacco use disorder, Hypertension ED Provider Note NAME: CB TATUM AGE: 60 SEX: F : 1965 ARRIVES VIA: Ambulance INFORMANT: Patient, EMS ED PROVIDER(S): Hector Govea DO CHIEF COMPLAINT: chest / neck pain HPI: This is a 60-year-old female with the PMHx of tobacco use disorder, PVD/atherosclerotic disease, HTN, HLD, GERD and Crohns disease presenting to [facility] for further evaluation of chest pain as well as neck pain. Patient is accompanied by EMS who provide additional history. EMS notes that patient complained of chest pressure with associated neck pain with bilateral UE tingling/paresthesias. She was treated for possible ACS with ASA load and SL NTG. She states her pain has significantly improved. This only required SL NTG x1. She notes her symptoms have been ongoing over the last few weeks. She notes that she has been evaluated in our ED as well as [facility]. She notes vascular disease was found. She has follow up scheduled with Cardiology but this is not until August. Family history of cardiac disease. She notes that she gets warmth and nauseous with these episodes. They do not seem exertional. They deny fever or chills. No cough or congestion. No shortness of breath. They deny abdominal pain and vomiting. No urinary complaints. No recent changes in bowel movements. Patient denies recent changes in medications or OTC supplements. Patient offers no other complaints, today. ADDITIONAL HISTORY OBTAINED: Per HPI Chronic Medical/Social Conditions Affecting Care: Per HPI PAST MEDICAL HISTORY: See Below PAST SURGICAL HISTORY: See Below FAMILY HISTORY: See Below SOCIAL HISTORY: See Below HOME MEDICATIONS: See Below ALLERGIES: See Below VITALS: See Below PHYSICAL EXAMINATION: GENERAL: Sitting up in bed, alert, well appearing, well nourished, no distress, non-toxic EYE EXAM: normal conjunctiva. OROPHARYNX: no exudate, no erythema, lips, buccal mucosa, and tongue normal and mucous membranes are moist NECK: supple, no nuchal rigidity, no adenopathy, non-tender LUNGS: Clear to auscultation. Normal chest wall mechanics HEART: no murmurs, regular rate, regular rhythm, 2+ radial pulses ABDOMEN: abdomen soft, non-tender, no masses, no rebound or guarding. BACK: Back is symmetrical on inspection and there is no deformity, no midline tenderness, no CVA tenderness. SKIN: no rashes and no bruising UPPER EXTREMITIES: upper extremities are grossly normal. LOWER EXTREMITIES: No pitting edema. NEURO EXAM: Normal sensorium, GCS 15, normal speech, no gross weakness of arms, no gross weakness of legs. MEDICAL DECISION MAKING: Differential diagnoses includes but not limited to ACS, stable vs unstable angina, dysrhythmia, viral URI, pneumonia, pericarditis, pneumothorax, costochondritis, hypertensive emergency, psychological causes, esophageal reflux, gastritis, MSK strain, muscle spasm, cervical radiculopathy, cervical spinal stenosis In summary, this is a 60 year old female who presented with chest pressure with neck pain and UE symptoms. Differential as above. Nursing notes and pertinent past medical records reviewed. Vital signs reviewed and the patient is hypertensive but otherwise afebrile and HDS. History and presentation revealed multiple risk factors for ACS. Physical examination revealed as above. As a result of my initial evaluation, symptoms are atypical but concerning for possible cardiac etiologies. Could be MSK. The patient is now in her third emergency department visit for similar symptoms. Her symptoms are atypical. Mostly neck pain and tingling associated with diaphoresis, warmth and nausea. Patient does have no evidence of peripheral artery/vascular disease. Risk factors for ACS are significant including hypertension, hyperlipidemia, family history as well as tobacco use disorder. Given that the patient is now in her third emergency department visit with pain/symptoms that improved with sublingual nitroglycerin, I do concern for possible vascular disease including coronary artery disease. Will repeat labs as well as a chest x-ray. I do anticipate the patient will be admitted to the hospital. Patient will be given IV fluid resuscitation as well as IV Tylenol as she has a mild headache from sublingual nitroglycerin. Diagnostics interpreted by me include EKG and cardiac monitoring as listed below: -Cardiac Monitoring: An order was placed for continuous cardiac monitoring. The monitor shows a rate of 50-80s with regular rhythm. -ECG: Normal sinus rhythm at a ventricular rate of [address] segment changes to suggest STEMI. There are Q waves in the inferior leads. There is left axis deviation. Patient completed laboratory studies and imaging. Results independently interpreted by me are no leukocytosis or anemia. There is no significant electrolyte derangements or significant kidney dysfunction from baseline. No changes in LFTs. Two troponins in time were noted to be negative and reassuring. Normal EKG in the setting of this making ACS unlikely. Normal coagulation studies. The patient was managed with IVFR and IV Tylenol for headache that is likely related to SL NTG use. Her symptoms are ongoing. She has significant risk factors for ACS. She is on her third ED visit. She will require further workup as an inpatient. Ultimately, the decision was made to admit the patient for high risk chest pain with ongoing neck pain. I discussed the case with the hospitalist service via telephone/TigerText and they are agreeable to admit the patient to their services. Based on the above, including the patient's age, coexisting illnesses, labs, imaging, and exam findings the decision to treat as an inpatient. I discussed the patient with the hospitalist team who recommended admission to their services. They received the medications, treatments, interventions indicated above and their condition remained stable. I discussed my findings with the patient and their family and they understand and agree with the treatment plan. All patient / family questions were answered to their satisfaction. Consults/Care Managements Discussions: Per MDM ER treatment provided: See above Procedures: None Critical Care: None The chart was completed utilizing [employer]mi Speech voice recognition software. Grammatical errors, random word insertions, pronoun errors, and incomplete sentences are an occasional consequence of this system due to software limitations, ambient noise, and hardware issues. Any formal questions or concerns about the content, text, or information contained within the body of this dictation should be directly addressed to the physician for clarification. Past Med/Surg History Problem List (Updated 07/05/25 @ 20:12 by Hector Govea DO) Hypertension (Acute) Tobacco use disorder (Acute) Neck pain (Acute) Atypical chest pain (Acute) Back pain (Acute) Acute epigastric pain (Acute) Abdominal pain (Acute) GERD (gastroesophageal reflux disease) High cholesterol Hypothyroidism Hypertension Emphysema lung Partial small bowel obstruction (Acute) Crohn's disease (Acute) Enteritis (Acute) Medical History Crohn's disease Emphysema lung GERD (gastroesophageal reflux disease) High cholesterol Hypertension Hypothyroidism Migraine Psoriasis PVD (peripheral vascular disease) Surgical History History of colectomy History of colonoscopy History of esophagogastroduodenoscopy (EGD) Family History Father FH: sudden cardiac (SCD) Other Diabetes Social History Smoking Status: Current every day smoker Tobacco Type: Cigarettes Cigarettes Per Day: 15; Second Hand Exposure: No; Do You Dip or Chew Tobacco: No; Hx Alcohol Use: Yes Alcohol type: beer Hx Substance Use: Yes Preferred Language: Georgian Communication Ability: Effective Interventional Radiologist Required: No Beliefs That Will Affect Care: None Current Living Situation: Spouse Current Living Situation Comment: lives with Feels Safe at Home: Yes Assistive Devices: Glasses Allergies Allergies Allergy/AdvReac Type Severity Reaction Status Date / Time Penicillins Allergy Intermediate AMOXICILLIN Verified 08/21/22 01:35 - RASH sulfamethoxazole [Bactrim] Allergy Intermediate Rash Verified 08/21/22 01:35 trimethoprim [Bactrim] Allergy Intermediate Rash Verified 08/21/22 01:35 Home Meds Home Medications Medication Instructions Recorded Confirmed albuterol sulfate 2.5 mg/3 mL 2.5 mg inhalation QID PRN 08/21/22 07/05/25 (0.083 %) solution for nebulization Shortness Of Breath cholecalciferol (vitamin D3) 50 50 mcg PO DAILY 08/21/22 07/05/25 mcg (2,000 unit) capsule (Vitamin D3) escitalopram oxalate 10 mg tablet 10 mg PO DAILY 08/21/22 07/05/25 levothyroxine 25 mcg tablet 25 mcg PO DAILYBB 08/21/22 07/05/25 sumatriptan succinate 6 mg/0.5 mL 6 mg subcut BID PRN Headache 08/21/22 07/05/25 subcutaneous cartridge (refill) atorvastatin 20 mg tablet 20 mg PO HS 11/08/22 07/05/25 omeprazole 40 mg capsule,delayed 40 mg PO DAILY 11/08/22 07/05/25 release hydroxyzine HCl 25 mg tablet 25 mg PO TID PRN Anxiety 07/05/25 07/05/25 Previous Rx's Medication Instructions Recorded lisinopril 20 mg tablet 20 mg PO DAILY #30 tabs 08/26/22 prednisone 20 mg tablet 40 mg (2 x 20 mg) PO DAILY #20 tabs 11/10/22 Results & Data (ED) Vital Signs Vital Signs - 24 hr 07/05/25 09:18 07/05/25 09:18 07/05/25 09:30 Temperature 36.6 C Temperature Source Oral Pulse Rate 75 Pulse Rate from SpO2 Sensor Respiratory Rate 19 Respiratory Effort / Characteristics Non-Labored Spontaneous Respiratory Depth Normal Blood Pressure 169/106 H 155/102 H Blood Pressure Mean 127 126 Pulse Oximetry 97 Oxygen Delivery Method Room Air Room Air Sepsis Recent Fever Within 48 Hours No Sepsis New/Unexplained Change in Mental Status No Sepsis Action Taken by Nursing No Action Required 07/05/25 09:35 07/05/25 09:36 07/05/25 09:42 Temperature Temperature Source Pulse Rate 76 80 71 Pulse Rate from SpO2 Sensor 79 70 Respiratory Rate 18 16 Respiratory Effort / Characteristics Respiratory Depth Blood Pressure Blood Pressure Mean Pulse Oximetry 96 96 Oxygen Delivery Method Sepsis Recent Fever Within 48 Hours Sepsis New/Unexplained Change in Mental Status Sepsis Action Taken by Nursing 07/05/25 09:51 Temperature Temperature Source Pulse Rate 74 Pulse Rate from SpO2 Sensor 76 Respiratory Rate 20 Respiratory Effort / Characteristics Respiratory Depth Blood Pressure Blood Pressure Mean Pulse Oximetry 96 Oxygen Delivery Method Sepsis Recent Fever Within 48 Hours Sepsis New/Unexplained Change in Mental Status Sepsis Action Taken by Nursing Laboratory Data 07/05/25 09:27 07/05/25 09:27 Lab Results 07/05/25 Range/Units 09:27 WBC 6.52 (4.8-10.8) K/ul RBC 4.86 (4.20-5.40) M/uL Hgb 14.6 (12.0-16.0) g/dL Hct 42.5 (37.0-47.0) % MCV 87.4 (80.0-100.0) fL MCH 30.0 (25.0-34.0) pg MCHC 34.4 (32.0-36.0) g/dL RDW Std Deviation 50.3 H (36.4-46.3) fL RDW Coeff of Kathia 15.7 H (11.5-14.5) % Plt Count 338 (130-400) K/uL MPV 9.6 (9.4-12.4) fL Immature Gran % (Auto) 0.2 % Neut % (Auto) 54.9 % Lymph % (Auto) 36.0 % Talbot % (Auto) 5.7 % Eos % (Auto) 1.8 % Baso % (Auto) 1.4 % Neut # (Auto) 3.58 (1.40-6.50) K/uL Lymph # (Auto) 2.35 (1.20-3.40) K/uL Talbot # (Auto) 0.37 (0.11-0.59) K/uL Eos # (Auto) 0.12 (0.00-0.50) K/uL Baso # (Auto) 0.09 (0.00-0.20) K/uL Immature Gran # (Auto) 0.01 (0.01-0.20) K/uL PT 10.8 (9.0-12.0) Seconds INR 1.0 (0.9-1.1) APTT 25 (21-31) Seconds PTT Ratio 0.9 Sodium 142 (136-145) mmol/L Potassium 4.0 (3.5-5.1) mmol/L Chloride 108 H (98-107) mmol/L Carbon Dioxide 25 (21-32) mmol/L Anion Gap 9 (3-11) BUN 13 (6-23) mg/dl Creatinine 0.77 (0.6-1.2) mg/dl Est Cr Clr Drug Dosing 69.0 ml/min eGFR 87.71 BUN/Creatinine Ratio 16.9 (10-20) Glucose 114 H (70-99(Fasting)) mg/dl Calcium 9.6 (8.6-10.3) mg/dl Total Bilirubin 0.8 (0.2-1.0) mg/dl AST 23 (13-39) U/L ALT 19 (7-52) U/L Alkaline Phosphatase 79 (34-104) U/L Troponin I High Sens 3.3 (0-14) pg/ml B-Natriuretic Peptide 20 (0-100) pg/ml Total Protein 7.3 (6.0-8.3) gm/dl Albumin 4.8 (3.4-5.0) gm/dl Globulin 2.5 (2.5-4.0) gm/dl Albumin/Globulin Ratio 1.9 (0.9-2) Triglycerides 176 H (0-150) mg/dl Cholesterol 153 (0-200) mg/dl LDL Cholesterol, Calc 52 mg/dl VLDL Cholesterol, Calc 35 H (0-30) mg/dl HDL Cholesterol 66 mg/dl Cholesterol/HDL Ratio 2.3 (0-5) Lipase 17 (11-82) U/L TSH 14.097 H (0.300-4.500) uIu/ml Free T4 0.79 (0.61-1.60) ng/dl Administered Medications Acetaminophen (Acetaminophen 325 Mg Tab) 650 mg PO Q4H PRN PRN Reason: pain/fever Stop: 08/04/25 16:14 Last Admin: 07/05/25 16:40 Dose: 650 mg Documented By: rafita Amlodipine Besylate (Amlodipine Besylate 5 Mg Tab) 5 mg PO QAM [facility] Stop: 08/04/25 11:29 Last Admin: 07/05/25 12:23 Dose: 5 mg Documented By: SHARRI Hydroxyzine HCl (Hydroxyzine Hcl 25 Mg Tab) 25 mg PO TID PRN PRN Reason: Anxiety Stop: 08/04/25 16:46 Last Admin: 07/05/25 17:04 Dose: 25 mg Documented By: rafita Nicotine (Nicotine 21 Mg/24 Hr Tdsy) 1 patch TD [facility] Stop: 08/04/25 11:29 Last Admin: 07/05/25 12:23 Dose: 1 patch Documented By: SHARRI Discontinued Medications Sodium Chloride (Nss) 1,000 mls @ 999 mls/hr IV .Q1H1M STA Stop: 07/05/25 10:18 Last Infusion: 07/05/25 15:59 Dose: Infused Documented By: Admin: 07/05/25 09:26 Dose: 999 mls/hr Documented By: katherin Acetaminophen (Ofirmev) 1,000 mg in 100 mls @ 400 mls/hr IV NOW STA Stop: 07/05/25 09:32 Last Infusion: 07/05/25 09:54 Dose: Infused Documented By: rosalinda Admin: 07/05/25 09:26 Dose: 400 mls/hr Documented By: katherin Ioversol (Optiray 320 125ml) 120 ml IV ONCE ONE Stop: 07/05/25 11:54 Last Admin: 07/05/25 11:54 Dose: 120 ml Documented By: CHRIS Imaging Data Radiologist's Impression: Chest X-Ray 07/05/25 09:18 XR chest 2V PA/lateral CLINICAL HISTORY: Chest pain, nonspecific COMPARISON STUDY: Chest radiograph and chest CT June 28, 2025. FINDINGS: Lung volumes are normal. Lungs are clear. There is no pneumothorax or pleural effusion. Cardiac size is normal. Mediastinal contours are normal. There is no evidence for pulmonary edema. IMPRESSION: No acute cardiopulmonary findings. ACT 112: Negative or not required by law. Electronically signed by: Alfonzo Moss M.D. 07/05/2025 10:16 AM Discharge Plan Visit Data Chief Complaint: Chest Pain Stated Complaint: NECK PAIN, ARM TINGLING ED Provider: Hector Govea Discharge Problem: Atypical chest pain, Neck pain, Tobacco use disorder, Hypertension Patient Disposition: Admitted As Inpatient Condition: Fair Discharge Instructions Interventions: ED Discharge Assessment Last Done: 07/05/25 13:05
[2025-07-05] MEDS: ACETAMINOPHEN 1,000 MG/100 ML VIAL IV STA (09:26)
[2025-07-05] MEDS: SODIUM CHLORIDE 0.9% 1,000 ML IV STA (09:26)
[2025-07-05 09:47] LABS: Hematocrit (blood only) 42.5 % (37.0-47.0); Hemoglobin 14.6 g/dL (12.0-16.0); Immature Granulocytes # (auto) 0.01 K/uL (0.01-0.20); Immature Granulocytes % (auto) 0.2 %; Mean Corpuscular Hemoglobin 30.0 pg (25.0-34.0); Mean Corpuscular Volume 87.4 fL (80.0-100.0); Platelet Count 338 K/uL (130-400); RDW Standard Deviation 50.3 fL (36.4-46.3); Red Blood Count 4.86 M/uL (4.20-5.40); White Blood Count 6.52 K/ul (4.8-10.8)
[2025-07-05 10:04] LABS: Alanine Aminotransferase 19.0 U/L (7-52); Albumin Globulin Ratio 1.9 (0.9-2); Albumin Level 4.8 gm/dl (3.4-5.0); Alkaline Phosphatase 79.0 U/L (34-104); Anion Gap 9.0 (3-11); Bilirubin,Total 0.8 mg/dl (0.2-1.0); Blood Urea Nitrogen 13.0 mg/dl (6-23); Calcium 9.6 mg/dl (8.6-10.3); Carbon Dioxide 25.0 mmol/L (21-32); Chloride 108.0 mmol/L (98-107); Creatinine Clr Calc Pharmacy 69.0 ml/min; Globulin 2.5 gm/dl (2.5-4.0); Glucose 114.0 mg/dl (70-99(Fasting)); Lipase 17.0 U/L (11-82); Potassium 4.0 mmol/L (3.5-5.1); Sodium 142.0 mmol/L (136-145); Total Protein 7.3 gm/dl (6.0-8.3)
[2025-07-05 10:15] LABS: INR 1.0 (0.9-1.1); Partial Thromboplastin Time 25 Seconds (21-31); Prothrombin Time 10.8 Seconds (9.0-12.0)
--- NOTE | 2025-07-05 10:17 | XRay Report ---
XR chest 2V PA/lateral CLINICAL HISTORY: Chest pain, nonspecific COMPARISON STUDY: Chest radiograph and chest CT June 28, 2025. FINDINGS: Lung volumes are normal. Lungs are clear. There is no pneumothorax or pleural effusion. Car diac size is normal. Mediastinal contours are normal. There is no evidence for pulmonary edema. IMPRESSION: No acute cardiopulmonary findings. ACT 112: Negative or not required by law. Electronically signed by: Alfonzo Moss M.D. 07/05/2025 10:16 AM
--- NOTE | 2025-07-05 10:40 | History & Physical Report ---
Date of Service July 05, 2025 Assessment & Plan (1) Back pain: (2) Hypothyroidism: (3) Hypertension: (4) High cholesterol: (5) Emphysema lung: (6) Crohn's disease: (7) Psoriasis: (8) PVD (peripheral vascular disease): Plan 60 yo female with pmhx of COPD, HLD, hypothyroidism, PVD, Crohn's disease, IBS, tobacco use, AAA, hx of migraines, psoriasis, subclavian/femoral artery atherosclerosis who presents for chest, arm and back pain 2/2 likely cervical spine stenosis vs. vascular occlusion. #Neck Pain #Bilateral Arm Tingling #Headache -inducible tingling in bilateral UE with manipulation of neck -chest pain is occasional, not correlated with neck and arm pain -differential includes cervical spinal stenosis, cervical spine vascular occlusion, thoracic outlet syndrome, MA/heart failure, other vascular disease, chronic migraines, less likely ankylosing psoondylitis, other autoimmune condition Plan: -check CT head without contrast -check CTA neck and CT neck with contrast looking for spinal stenosis -check echo, A1c, lipids, TSH -check BNP -admit for observation, possible discharge after diagnostics as early as today #HTN #HLD -chronically uncontrolled Plan: -start amlodopine -add other agents as needed -continue statin #COPD -continue prn albuterol #PVD #Subclavian/Femoral Artery Atherosclerosis -f/u outpatient with vascular #Crohns Disease -f/u with GI outpatient I spent a total of 80 minutes in direct patient care, including [id number] time with the patient and/or family, reviewing medical records, ordering and reviewing diagnostic tests, and coordinating care with other healthcare providers. This time includes: history taking, physical examination, medical decision making, counseling, ECG interpretation, imaging interpretation, lab interpretation, orders, and education, excluding time spent in the performance of separately billed services. History of Present Illness Chief Complaint: -chest pain Primary Care Provider: Alisia Braga MD 60 yo female with pmhx of COPD, HLD, hypothyroidism, PVD, Crohn's disease, IBS, tobacco use, AAA, hx of migraines, psoriasis, subclavian/femoral artery atherosclerosis who presents for chest, arm and back pain. Last admission at [facility] was in 2022 for a partial SBO. In the ED, negative troponins, normal blood work, 3rd time in ED for similar concerns, admit for observation to medicine for chest pain rule out. Patient seen and examined at bedside. Patient states she has been having tingling in her arms and some upper back pain for the past few weeks. She stat es getting worse. States worse with movement. She occasionally has chest pain but they do not seem correlated. She smokes about a pack a day of tobacco. States her blood pressure has been running on the high side recently. Denies nausea vomiting diarrhea. Does have a headache. Social drinker, 1 pack a day tobacco use, marijuana user, full code. Allergies Allergy/AdvReac Type Severity Reaction Status Date / Time Penicillins Allergy Intermediate AMOXICILLIN Verified 08/21/22 01:35 - RASH sulfamethoxazole [Bactrim] Allergy Intermediate Rash Verified 08/21/22 01:35 trimethoprim [Bactrim] Allergy Intermediate Rash Verified 08/21/22 01:35 Home Medications Medication Instructions Recorded Confirmed Type albuterol sulfate 2.5 mg/3 mL 2.5 mg inhalation QID PRN 08/21/22 11/08/22 History (0.083 %) solution for nebulization Shortness Of Breath cholecalciferol (vitamin D3) 50 50 mcg PO DAILY 08/21/22 11/08/22 History mcg (2,000 unit) capsule (Vitamin D3) escitalopram oxalate 10 mg tablet 10 mg PO DAILY 08/21/22 11/08/22 History levothyroxine 25 mcg tablet 25 mcg PO DAILYBB 08/21/22 11/08/22 History sumatriptan succinate 6 mg/0.5 mL 6 mg subcut BID PRN Headache 08/21/22 11/08/22 History subcutaneous cartridge (refill) lisinopril 20 mg tablet 20 mg PO DAILY #30 tabs 08/26/22 11/08/22 Rx atorvastatin 20 mg tablet 20 mg PO HS 11/08/22 11/08/22 History omeprazole 40 mg capsule,delayed 40 mg PO DAILY 11/08/22 11/08/22 History release prednisone 20 mg tablet 40 mg (2 x 20 mg) PO DAILY #20 tabs 11/10/22 Rx Past Med/Surg History Problem List (Updated 06/29/25 @ 00:55 by Ena Petersen PA-C) Back pain (Acute) Acute epigastric pain (Acute) Abdominal pain (Acute) GERD (gastroesophageal reflux disease) High cholesterol Hypothyroidism Hypertension Emphysema lung Partial small bowel obstruction (Acute) Crohn's disease (Acute) Enteritis (Acute) Medical History Crohn's disease Emphysema lung GERD (gastroesophageal reflux disease) High cholesterol Hypertension Hypothyroidism Migraine Psoriasis PVD (peripheral vascular disease) Surgical History History of colectomy History of colonoscopy History of esophagogastroduodenoscopy (EGD) Family History Father FH: sudden cardiac (SCD) Other Diabetes Social History Smoking Status: Current every day smoker Tobacco Type: Cigarettes Cigarettes Per Day: 15; Do You Dip or Chew Tobacco: No; Hx Alcohol Use: Yes Alcohol type: beer Hx Substance Use: No Preferred Language: Lao Communication Ability: Effective Animal Care Service Worker Required: No Beliefs That Will Affect Care: None Current Living Situation: Spouse Feels Safe at Home: Yes Assistive Devices: None Review of Systems Review of Systems: -negative unless listed above Physical Exam Physical Exam: Gen: A&O 3 NAD HEENT: NCAT, EOMI, not icteric. External ears normal. No rhinorrhea. Moist mucous membranes. Neck: Supple, full range of motion, no observable masses, No meningeal sign. Lungs: No Respiratory distress. CV: RRR, no edema. Abdomen: Soft, nondistended, No rebound tenderness. MSK: No joint swelling, no redness. Skin: No rashes, petechiae, lesions. Normal color per patient. Neuro: Normal Gait, Grossly intact. Inducible tingling with neck manipulation in left and right arm Psych: Appropriate for situation. Results & Data Results & Data Vital Signs (Past 12 Hours) Vital Signs Temp Pulse Resp BP Pulse Ox O2 Del Method 07/05/25 09:35 76 07/05/25 09:18 36.6 C 75 19 169/106 H 97 Room Air Laboratory Results -personally reviewed, negative troponin, no leukocytosis, creatinine at baseline
[2025-07-05 11:45] LABS: Cholesterol 153.0 mg/dl (0-200); HDL Cholesterol 66.0 mg/dl; Triglycerides 176.0 mg/dl (0-150)
[2025-07-05] MEDS: OPTIRAY 320 125ml IV ONE (11:54)
[2025-07-05 12:00] LABS: Thyroid Stimulating Hormone 14.097 uIu/ml (0.300-4.500)
--- NOTE | 2025-07-05 12:21 | CT Scan Report ---
CT ANGIOGRAM OF THE NECK CLINICAL HISTORY: Inducible neck pain. COMPARISON STUDY: No priors TECHNIQUE: Following the IV administration of 120 of Optiray 320, CT angiogram of the neck was perfor med from the aortic arch to the skull base. Images are reviewed in the axial, sagittal, and coronal p lanes. 3-D MIPS images are created and assessed. IV contrast was administered without complication. A ll measurements were calculated based on NASCET criteria. A dose lowering technique was utilized adh ering to the principles of ALARA. CT DOSE: 1355.51 mGy.cm FINDINGS: Thoracic aorta: Visualized portions of the thoracic aorta are normal in caliber. The aortic arch demo nstrates standard 3-vessel anatomy. Right carotid arterial system: The right common carotid artery is widely patent. Advanced atheroscler otic plaque in the carotid bulb causes less than 50% stenosis at the origin of the right internal car otid artery. The right internal and external carotid arteries otherwise widely patent. Left carotid arterial system: The left common carotid artery is widely patent, as are the left healthcare administration internship al and external carotid arteries. Calcified plaque is seen in the left carotid bulb. Vertebral arteries: Widely patent bilaterally noting right-sided dominance. The left vertebral artery is diminutive. Subclavian arteries: There is moderate focal stenosis of the right subclavian artery below the thorac ic outlet as seen on axial image #56. The subclavian arteries are otherwise widely patent bilaterally . Intracranial vasculature: The visualized intracranial vessels at the skull base are patent. Jugular veins: Patent bilaterally. Brain parenchyma: The visualized brain parenchyma the skull base is within normal limits. Lung apices: Emphysematous change is noted. Partially visualized upper lobe lung parenchyma otherwise appears clear. Soft tissues: The visualized pharyngeal soft tissues are normal in appearance noting angiographic pha se technique. The oropharyngeal airway appears widely patent. The thyroid gland is normal in size and heterogeneous in attenuation. The salivary glands are normal in appearance. No cervical lymphadenopa thy is seen. Skeletal structures: The visualized calvarium at the skull base appears intact. The imaged cervical s pine is maintained noting multilevel spondylosis. Sinuses and mastoids: There is trace mucosal thickening within the left maxillary antrum. The mastoid air cells are well pneumatized. IMPRESSION: 1. There is moderate focal stenosis of the right subclavian artery below the thoracic outlet. 2. Otherwise unremarkable CT angiogram of the neck noting atherosclerotic plaque in the carotid bulbs . 3. Emphysema. 4. Additional findings as above. ACT 112: Negative or not required by law. Electronically signed by: Tj Kimball M.D. 07/05/2025 12:19 PM
--- NOTE | 2025-07-05 12:21 | CT Scan Report ---
CT SCAN OF THE BRAIN WITHOUT IV CONTRAST CLINICAL HISTORY: Headache. Neck pain. COMPARISON STUDY: None. TECHNIQUE: Unenhanced axial CT scan of the brain was performed from the vertex to the skull base. A dose lowering technique was utilized adhering to the principles of ALARA. FINDINGS: Brain parenchyma: No acute intracranial hemorrhage, midline shift or mass effect is present. Silveira-whi te matter differentiation is preserved. There are no extra-axial fluid collections. There are no find ings to suggest acute dural sinus thrombosis or acute territorial infarct. Ventricles, sulci, cisterns: There is no hydrocephalus. The basal cisterns are patent. Calvarium: Unremarkable. Sinuses and mastoids: The visualized paranasal sinuses are clear. The mastoid air cells are well pneu matized. Orbits: The bony orbits are grossly intact. IMPRESSION: No acute intracranial findings. ACT 112: Negative or not required by law. Electronically signed by: Alfonzo Moss M.D. 07/05/2025 12:20 PM
[2025-07-05] MEDS: NICOTINE 21 MG/24 HR TDSY TD SCH (12:23)
[2025-07-05 12:35] LABS: T4 Free Thyroxine 0.79 ng/dl (0.61-1.60)
--- NOTE | 2025-07-05 12:38 | CT Scan Report ---
CT SCAN OF THE CERVICAL SPINE CLINICAL HISTORY: Inducible neck pain. COMPARISON STUDY: None. TECHNIQUE: CT scan of the cervical spine is performed from the skull base to the upper thoracic spine . Images are reviewed in the axial, sagittal, and coronal planes. IV contrast was not administered fo r this examination. A dose lowering technique was utilized adhering to the principles of ALARA. FINDINGS: There is reversal of the cervical lordosis. Vertebral body heights are maintained. No fract ure or osseous lesion is present. There is moderate multilevel disc space narrowing and endplate oste ophytosis within the cervical spine. Facet joints are intact. There is minimal facet arthrosis. Centr al canal and neural foramen are suboptimally assessed given CT technique. There is no evidence for se jabari central canal stenosis IMPRESSION: 1. No acute cervical spine fracture or subluxation. 2. Moderate multilevel degenerative disc disease within the cervical spine. No severe central canal s tenosis identified. Suspected moderate multilevel neural foraminal stenosis, suboptimally assessed by CT. ACT 112: Negative or not required by law. Electronically signed by: Alfonzo Moss M.D. 07/05/2025 12:37 PM
[2025-07-05 14:03] LABS: Hemoglobin A1C 5.6 % (4.5-5.6)
[2025-07-05] MEDS ORDERED: ONDANSETRON INJ 2 MG/ML 2 ML VIAL IV PRN (16:15)
[2025-07-05] MEDS ORDERED: POLYETHYLENE (MIRALAX) 17 GM PACK PO PRN (16:15)
[2025-07-05] MEDS ORDERED: ALBUTEROL 0.083% NEBU SOLN 3 ML VIAL INH PRN (16:15)
[2025-07-05] MEDS: ACETAMINOPHEN 325 MG TAB PO PRN (16:40)
--- NOTE | 2025-07-05 17:50 | XCELERA ---
[id number]\[id number]___[id number]
--- NOTE | 2025-07-05 18:52 | Electrocardiogram Report ---
Test Reason : Blood Pressure : */* mmHG Vent. Rate : 83 BPM Atrial Rate : 83 BPM P-R Int : 196 ms QRS Dur : 76 ms QT Int : 392 ms P-R-T Axes : 74 -55 61 degrees QTcB Int : 460 ms Normal sinus rhythm Possible Left atrial enlargement Left axis deviation possible Inferior infarct (cited on or before 02-May-2006) Abnormal ECG Confirmed by Billy Dorman ([id number]) on 07/05/2025 6:52:12 PM Referred By: REFERRED SELF Confirmed By: Billy Dorman
[2025-07-05] MEDS: ENOXAPARIN INJ 40 MG/0.4 ML SYR SQ SCH (20:49)
[2025-07-05] MEDS: ATORVASTATIN 20 MG TAB PO SCH (20:50)
[2025-07-05] MEDS ORDERED: LABETALOL HCL IV 5 MG/ML 20ML IV STA (21:09)
[2025-07-05] MEDS: LABETALOL HCL IV 5 MG/ML 20ML IV STA ×3 (21:15→22:26)
[2025-07-05] MEDS: LORazepam 0.5 MG TAB PO STA ×2 (21:24→22:28)
[2025-07-06] MEDS: LEVOTHYROXINE SODIUM 75 MCG TABLET PO SCH (06:01)
[2025-07-06 06:52] LABS: Hematocrit (blood only) 39.2 % (37.0-47.0); Hemoglobin 13.3 g/dL (12.0-16.0); Mean Corpuscular Hemoglobin 30.0 pg (25.0-34.0); Mean Corpuscular Volume 88.5 fL (80.0-100.0); Platelet Count 281 K/uL (130-400); RDW Standard Deviation 50.4 fL (36.4-46.3); Red Blood Count 4.43 M/uL (4.20-5.40); White Blood Count 6.32 K/ul (4.8-10.8)
[2025-07-06 07:52] LABS: Anion Gap 9.0 (3-11); Blood Urea Nitrogen 12.0 mg/dl (6-23); Calcium 9.0 mg/dl (8.6-10.3); Carbon Dioxide 22.0 mmol/L (21-32); Chloride 110.0 mmol/L (98-107); Creatinine Clr Calc Pharmacy 81.3 ml/min; Glucose 103.0 mg/dl (70-99(Fasting)); Potassium 3.6 mmol/L (3.5-5.1); Sodium 141.0 mmol/L (136-145)
[2025-07-06] MEDS: INFLUENZA VACC TS2025-26(6m+)/PF (IIV3) 0.5mL Syr IM ONE (09:53)
[2025-07-06] MEDS: REMOVE NICODERM PATCH SCH (09:53)
[2025-07-06] MEDS: ESCITALOPRAM OXALATE 10 MG TAB PO SCH (12:12)
[2025-07-06] MEDS: LORazepam 0.5 MG TAB PO STA (12:12)
--- NOTE | 2025-07-06 13:35 | Hospitalist Progress Note ---
Date of Service July 06, 2025 Assessment & Plan (1) Back pain: (2) Hypothyroidism: (3) Hypertension: (4) High cholesterol: (5) Emphysema lung: (6) Crohn's disease: (7) Psoriasis: (8) PVD (peripheral vascular disease): Plan 60 yo female with pmhx of COPD, HLD, hypothyroidism, PVD, Crohn's disease, IBS, tobacco use, AAA, hx of migraines, psoriasis, subclavian/femoral artery atherosclerosis who presents for chest, arm and back pain 2/2 likely cervical spine stenosis vs. vascular occlusion. #Neck Pain #Bilateral Arm Tingling #Headache -inducible tingling in bilateral UE with manipulation of neck -chest pain is occasional, not correlated with neck and arm pain -differential includes cervical spinal stenosis, cervical spine vascular occlusion, thoracic outlet syndrome, [place]/heart failure, other vascular disease, chronic migraines, less likely ankylosing psoondylitis, other autoimmune condition - CT of the neck did not show any cervical spine fracture or subluxation but showed moderate multilevel degenerative disc disease without central foraminal stenosis but has suspected moderate multilevel neural foraminal stenosis CT of the neck showed moderate focal stenosis of the right subclavian artery below the thoracic outlet CT of the head was unremarkable Echo of the heart showed LV systolic function is normal with EF 60 to 65%, grade 1 diastolic dysfunction, aortic valve sclerosis without stenosis, mild pulmonic valvular regurgitation, mild TR and mild MR She remains free from any symptoms since admission Her numbness bilaterally involving upper extremities happens to be with very high blood pressure and anxiety She does not need to go for any MRI of the neckher neuro examination remain unremarkable #HTN #HLD -chronically uncontrolled She has been on lisinopril 20 mg daily She was given amlodipine which has been discontinued and will restart lisinopril as her home dose #COPD -continue prn albuterol #PVD #Subclavian/Femoral Artery Atherosclerosis -f/u outpatient with vascular #Crohns Disease -f/u with GI outpatient I spent a total of 57 minutes seeing the patient, examining her, going over with the results of investigation, managing her acute symptoms and also planning of care. Admission and Anticipated Discharge Date Admission Date: July 05, 2025 Subjective 07/06/2025 The patient was seen and examined in medical telemetry unit She has been stable but complains to have lots of anxiety Her blood pressure goes very high likely with anxiety and it can go as high as systolic 190 She feels weird with some neck pain and also tingling involving the both upper extremities during an episode Denies any neck pain as such Review of Systems Review of Systems: All systems reviewed and are unremarkable except as noted below Physical Exam Physical Exam: Usually lying in bed with anxiety but no other Constitutional: + ill appearing and average body habitus Eyes: PERRL, conjunctivae normal, anicteric sclerae ENMT: external ear and nose normal, oropharynx normal Neck: trachea midline, no thyromegaly Respiratory: no respiratory distress Auscultation: lungs clear to auscultation bilaterally Cardiovascular: Rate/Rhythm: regular rate and regular rhythm; not tachycardic Heart Sounds: normal S1 and normal S2; no murmur Extremities: no edema Gastrointestinal (Abdomen): Inspection/Auscultation: normal bowel sounds; abdomen not distended Percussion/Palpation: abdomen soft; abdomen nontender Musculoskeletal: Head/Neck/Chest: normocephalic and neck supple; full ROM of neck and no scalp tenderness Neurologic: normal touch/pain/proprioception and moves all extremities; no focal motor deficits Lymphatic: no cervical or axillary lymphadenopathy Results & Data Results & Data Vital Signs (Past 12 Hours) Vital Signs Temp Pulse Pulse Resp BP Pulse Ox O2 Del Method 07/06/25 12:24 36.9 C 72 17 156/94 H 97 Room Air 07/06/25 08:47 36.7 C 69 17 105/69 98 Room Air 07/06/25 07:18 60 07/06/25 02:38 36.5 C 69 18 112/71 97 Room Air Laboratory Results Short CBC 07/06/25 Range/Units 06:19 WBC 6.32 (4.8-10.8) K/ul Hgb 13.3 (12.0-16.0) g/dL Hct 39.2 (37.0-47.0) % Plt Count 281 (130-400) K/uL BMP 07/06/25 06:19 Sodium 141 Potassium 3.6 Chloride 110 H Carbon Dioxide 22 BUN 12 Creatinine 0.63 Glucose 103 H Calcium 9.0 Medications Administered Current Inpatient Medications Acetaminophen (Acetaminophen 325 Mg Tab) 650 mg PO Q4H PRN PRN Reason: pain/fever Stop: 08/04/25 16:14 Last Admin: 07/05/25 16:40 Dose: 650 mg Albuterol (Albuterol 0.083% Nebu Soln 3 Ml Vial) 2.5 mg INH QID PRN; Protocol PRN Reason: Shortness Of Breath Stop: 08/04/25 16:14 Atorvastatin Calcium (Atorvastatin 20 Mg Tab) 20 mg PO HS [facility] Stop: 08/04/25 20:59 Last Admin: 07/05/25 20:50 Dose: 20 mg Enoxaparin Sodium (Enoxaparin Inj 40 Mg/0.4 Ml Syr) 40 mg SQ Q24H [facility] Stop: 08/04/25 20:59 Last Admin: 07/05/25 20:49 Dose: 40 mg Escitalopram Oxalate (Escitalopram Oxalate 10 Mg Tab) 10 mg PO DAILY [facility] Stop: 08/05/25 10:29 Last Admin: 07/06/25 12:12 Dose: 10 mg Hydroxyzine HCl (Hydroxyzine Hcl 25 Mg Tab) 25 mg PO TID PRN PRN Reason: Anxiety Stop: 08/04/25 16:46 Last Admin: 07/05/25 17:04 Dose: 25 mg Levothyroxine Sodium (Levothyroxine Sodium 75 Mcg Tablet) 75 mcg PO DAILYBB [facility] Stop: 08/05/25 06:29 Last Admin: 07/06/25 06:01 Dose: 75 mcg Lisinopril (Lisinopril 20 Mg Tab) 20 mg PO DAILY [facility] Stop: 08/06/25 08:59 Lisinopril (Lisinopril 10 Mg Tab) 10 mg PO ONE ONE Stop: 07/06/25 13:36 Miscellaneous (Remove Nicoderm Patch) 1 each N/A DAILY@0859 [facility] Stop: 08/05/25 08:58 Last Admin: 07/06/25 09:53 Dose: 1 each Nicotine (Nicotine 21 Mg/24 Hr Tdsy) 1 patch TD QAM [facility] Stop: 08/04/25 11:29 Last Admin: 07/06/25 09:53 Dose: 1 patch Ondansetron HCl (Ondansetron Inj 2 Mg/Ml 2 Ml Vial) 4 mg IV Q6H PRN PRN Reason: Nausea Stop: 08/04/25 16:14 Pantoprazole Sodium (Pantoprazole 40 Mg Tab) 40 mg PO DAILY [facility] Stop: 08/05/25 10:29 Last Admin: 07/06/25 12:12 Dose: 40 mg Polyethylene Glycol (Polyethylene (Miralax) 17 Gm Pack) 17 gm PO DAILY PRN PRN Reason: Constipation Stop: 08/04/25 16:14
[2025-07-07 05:57] LABS: Hematocrit (blood only) 38.0 % (37.0-47.0); Hemoglobin 13.2 g/dL (12.0-16.0); Immature Granulocytes # (auto) 0.01 K/uL (0.01-0.20); Immature Granulocytes % (auto) 0.2 %; Mean Corpuscular Hemoglobin 30.4 pg (25.0-34.0); Mean Corpuscular Volume 87.6 fL (80.0-100.0); Platelet Count 272 K/uL (130-400); RDW Standard Deviation 49.3 fL (36.4-46.3); Red Blood Count 4.34 M/uL (4.20-5.40); White Blood Count 6.32 K/ul (4.8-10.8)
[2025-07-07 06:15] LABS: Anion Gap 8.0 (3-11); Blood Urea Nitrogen 12.0 mg/dl (6-23); Calcium 9.1 mg/dl (8.6-10.3); Carbon Dioxide 23.0 mmol/L (21-32); Chloride 109.0 mmol/L (98-107); Creatinine Clr Calc Pharmacy 78.2 ml/min; Glucose 104.0 mg/dl (70-99(Fasting)); Magnesium 2.1 mg/dl (1.7-2.4); Potassium 3.8 mmol/L (3.5-5.1); Sodium 140.0 mmol/L (136-145)
[2025-07-07] MEDS: SODIUM CHLORIDE 0.9% 1,000 ML IV SCH (10:06)
--- NOTE | 2025-07-07 10:16 | Electrocardiogram Report ---
Test Reason : Blood Pressure : */* mmHG Vent. Rate : 67 BPM Atrial Rate : 67 BPM P-R Int : 172 ms QRS Dur : 80 ms QT Int : 422 ms P-R-T Axes : 58 -48 52 degrees QTcB Int : 445 ms Normal sinus rhythm Left axis deviation Inferior infarct (cited on or before 02-May-2006) Cannot rule out Anteroseptal infarct (cited on or before 02-May-2006) Abnormal ECG When compared with ECG of 05-Jul-2025 09:15, Questionable change in initial forces of Septal leads Confirmed by Pérez Villalpando ([id number]) on 07/07/2025 10:16:21 AM Referred By: REFERRED SELF Confirmed By: Pérez Villalpando
[2025-07-07] MEDS: ALUMINUM/MAGNESIUM SUSP 30 ML UDC PO PRN (15:15)
[2025-07-07] MEDS: LORazepam 0.5 MG TAB PO PRN (15:15)
--- NOTE | 2025-07-07 15:37 | Hospitalist Progress Note ---
Date of Service July 07, 2025 Assessment & Plan (1) Back pain: (2) Hypothyroidism: (3) Hypertension: (4) High cholesterol: (5) Emphysema lung: (6) Crohn's disease: (7) Psoriasis: (8) PVD (peripheral vascular disease): Plan 60 yo female with pmhx of COPD, HLD, hypothyroidism, PVD, Crohn's disease, IBS, tobacco use, AAA, hx of migraines, psoriasis, subclavian/femoral artery atherosclerosis who presents for chest, arm and back pain 2/2 likely cervical spine stenosis vs. vascular occlusion. #Neck Pain #Bilateral Arm Tingling #Headache -inducible tingling in bilateral UE with manipulation of neck -chest pain is occasional, not correlated with neck and arm pain -differential includes cervical spinal stenosis, cervical spine vascular occlusion, thoracic outlet syndrome, [place]/heart failure, other vascular disease, chronic migraines, less likely ankylosing psoondylitis, other autoimmune condition - CT of the neck did not show any cervical spine fracture or subluxation but showed moderate multilevel degenerative disc disease without central foraminal stenosis but has suspected moderate multilevel neural foraminal stenosis CT of the neck showed moderate focal stenosis of the right subclavian artery below the thoracic outlet CT of the head was unremarkable Echo of the heart showed LV systolic function is normal with EF 60 to 65%, grade 1 diastolic dysfunction, aortic valve sclerosis without stenosis, mild pulmonic valvular regurgitation, mild TR and mild MR She remains free from any symptoms since admission Her numbness bilaterally involving upper extremities happens to be with very high blood pressure and anxiety She does not need to go for any MRI of the neckher neuro examination remain unremarkable Episodic tingling involving the hands bilaterally but noted to have maintain blood pressure with it Did not have any other symptoms associated with it DEBBIE Has history of anxiety and has not been taking Lexapro as an outpatient Has been having anxiety attack with diarrhea and more symptoms of numbness and tingling Lexapro has been restarted for the last 2 days and will give Ativan as needed on top of that #HTN #HLD -chronically uncontrolled She has been on lisinopril 20 mg daily She was given amlodipine which has been discontinued and will restart lisinopril as her home dose #COPD -continue prn albuterol #PVD #Subclavian/Femoral Artery Atherosclerosis -f/u outpatient with vascular #Crohns Disease -f/u with GI outpatient Has been complaining of some diarrhea without significant abdominal pain but has epigastric discomfort Will send stool for C. difficile and increase the dose of Protonix to twice daily I spent a total of 57 minutes seeing the patient, examining her, going over with the results of investigation, managing her acute symptoms and also planning of care. Admission and Anticipated Discharge Date Admission Date: July 05, 2025 Subjective 07/06/2025 The patient was seen and examined in medical telemetry unit She has been stable but complains to have lots of anxiety Her blood pressure goes very high likely with anxiety and it can go as high as systolic 190 She feels weird with some neck pain and also tingling involving the both upper extremities during an episode Denies any neck pain as such 07/07/2025 The patient was seen and examined in medical telemetry unit in presence of the She remains very anxious and complains to have lower abdominal pain with anxiety and diarrhea Has had low blood pressure this morning with systolic 99 and also tingling involving the both extremities Denies any fever and/or chills and no other signs and symptoms of Crohn's disease Review of Systems Review of Systems: All systems reviewed and are unremarkable except as noted below Physical Exam Physical Exam: Usually lying in bed with anxiety but no other Constitutional: + ill appearing and average body habitus Eyes: PERRL, conjunctivae normal, anicteric sclerae ENMT: external ear and nose normal, oropharynx normal Neck: trachea midline, no thyromegaly Respiratory: no respiratory distress Auscultation: lungs clear to auscultation bilaterally Cardiovascular: Rate/Rhythm: regular rate and regular rhythm; not tachycardic Heart Sounds: normal S1 and normal S2; no murmur Extremities: no edema Gastrointestinal (Abdomen): Inspection/Auscultation: normal bowel sounds; abdomen not distended Percussion/Palpation: abdomen soft; abdomen nontender Musculoskeletal: Head/Neck/Chest: normocephalic and neck supple; full ROM of neck and no scalp tenderness Neurologic: normal touch/pain/proprioception and moves all extremities; no focal motor deficits Lymphatic: no cervical or axillary lymphadenopathy Results & Data Results & Data Vital Signs (Past 12 Hours) Vital Signs Temp Pulse Pulse Resp BP Pulse Ox O2 Del Method 07/07/25 13:59 65 07/07/25 11:38 36.9 C 58 L 18 118/73 97 Room Air 07/07/25 08:42 67 130/81 07/07/25 08:17 Room Air 07/07/25 07:52 36.7 C 57 L 17 99/64 L 98 Room Air 07/07/25 06:56 60 Laboratory Results Short CBC 07/07/25 Range/Units 05:36 WBC 6.32 (4.8-10.8) K/ul Hgb 13.2 (12.0-16.0) g/dL Hct 38.0 (37.0-47.0) % Plt Count 272 (130-400) K/uL BMP 07/07/25 05:36 Sodium 140 Potassium 3.8 Chloride 109 H Carbon Dioxide 23 BUN 12 Creatinine 0.67 Glucose 104 H Calcium 9.1 Medications Administered Current Inpatient Medications Acetaminophen (Acetaminophen 325 Mg Tab) 650 mg PO Q4H PRN PRN Reason: pain/fever Stop: 08/04/25 16:14 Last Admin: 07/05/25 16:40 Dose: 650 mg Al Hydrox/Mg Hydrox/Simethicone (Aluminum/Magnesium Susp 30 Ml Udc) 15 ml PO Q6H PRN PRN Reason: Dyspepsia Stop: 08/06/25 13:06 Last Admin: 07/07/25 15:15 Dose: 15 ml Albuterol (Albuterol 0.083% Nebu Soln 3 Ml Vial) 2.5 mg INH QID PRN; Protocol PRN Reason: Shortness Of Breath Stop: 08/04/25 16:14 Atorvastatin Calcium (Atorvastatin 20 Mg Tab) 20 mg PO HS [facility] Stop: 08/04/25 20:59 Last Admin: 07/06/25 20:47 Dose: 20 mg Enoxaparin Sodium (Enoxaparin Inj 40 Mg/0.4 Ml Syr) 40 mg SQ Q24H [facility] Stop: 08/04/25 20:59 Last Admin: 07/06/25 20:46 Dose: 40 mg Escitalopram Oxalate (Escitalopram Oxalate 10 Mg Tab) 10 mg PO DAILY [facility] Stop: 08/05/25 10:29 Last Admin: 07/07/25 08:42 Dose: 10 mg Hydroxyzine HCl (Hydroxyzine Hcl 25 Mg Tab) 25 mg PO TID PRN PRN Reason: Anxiety Stop: 08/04/25 16:46 Last Admin: 07/05/25 17:04 Dose: 25 mg Sodium Chloride (Nss) 1,000 mls @ 150 mls/hr IV .Q6H40M [facility] Stop: 07/07/25 21:49 Last Admin: 07/07/25 10:06 Dose: 150 mls/hr Levothyroxine Sodium (Levothyroxine Sodium 75 Mcg Tablet) 75 mcg PO DAILYBB [facility] Stop: 08/05/25 06:29 Last Admin: 07/07/25 05:40 Dose: 75 mcg Lisinopril (Lisinopril 20 Mg Tab) 20 mg PO DAILY [facility] Stop: 08/06/25 08:59 Last Admin: 07/07/25 08:42 Dose: 20 mg Lorazepam (Lorazepam 0.5 Mg Tab) 0.5 mg PO BID PRN PRN Reason: Anxiety Stop: 08/06/25 13:07 Last Admin: 07/07/25 15:15 Dose: 0.5 mg Miscellaneous (Remove Nicoderm Patch) 1 each N/A DAILY@0859 [facility] Stop: 08/05/25 08:58 Last Admin: 07/07/25 08:42 Dose: 1 each Nicotine (Nicotine 21 Mg/24 Hr Tdsy) 1 patch TD QAM [facility] Stop: 08/04/25 11:29 Last Admin: 07/07/25 08:42 Dose: 1 patch Ondansetron HCl (Ondansetron Inj 2 Mg/Ml 2 Ml Vial) 4 mg IV Q6H PRN PRN Reason: Nausea Stop: 08/04/25 16:14 Pantoprazole Sodium (Pantoprazole 40 Mg Tab) 40 mg PO BID [facility] Stop: 08/06/25 20:59 Polyethylene Glycol (Polyethylene (Miralax) 17 Gm Pack) 17 gm PO DAILY PRN PRN Reason: Constipation Stop: 08/04/25 16:14
[2025-07-08 06:08] LABS: Hematocrit (blood only) 37.0 % (37.0-47.0); Hemoglobin 12.3 g/dL (12.0-16.0); Immature Granulocytes # (auto) 0.01 K/uL (0.01-0.20); Immature Granulocytes % (auto) 0.2 %; Mean Corpuscular Hemoglobin 29.6 pg (25.0-34.0); Mean Corpuscular Volume 89.2 fL (80.0-100.0); Platelet Count 254 K/uL (130-400); RDW Standard Deviation 50.4 fL (36.4-46.3); Red Blood Count 4.15 M/uL (4.20-5.40); White Blood Count 6.20 K/ul (4.8-10.8)
[2025-07-08 06:23] LABS: Alanine Aminotransferase 14 U/L (7-52); Albumin Globulin Ratio 1.9 (0.9-2); Albumin Level 3.7 gm/dl (3.4-5.0); Alkaline Phosphatase 56 U/L (34-104); Anion Gap 6 (3-11); Bilirubin,Total 0.6 mg/dl (0.2-1.0); Blood Urea Nitrogen 11 mg/dl (6-23); Calcium 8.6 mg/dl (8.6-10.3); Carbon Dioxide 23 mmol/L (21-32); Chloride 112 mmol/L (98-107); Creatinine Clr Calc Pharmacy 78.2 ml/min; Globulin 2.0 gm/dl (2.5-4.0); Glucose 100 mg/dl (70-99(Fasting)); Magnesium 2.0 mg/dl (1.7-2.4); Potassium 3.7 mmol/L (3.5-5.1); Sodium 141 mmol/L (136-145); Total Protein 5.7 gm/dl (6.0-8.3)
--- NOTE | 2025-07-08 13:32 | Hospitalist Progress Note ---
Date of Service July 08, 2025 Assessment & Plan (1) Back pain: (2) Hypothyroidism: (3) Hypertension: (4) High cholesterol: (5) Emphysema lung: (6) Crohn's disease: (7) Psoriasis: (8) PVD (peripheral vascular disease): Plan 60 yo female with pmhx of COPD, HLD, hypothyroidism, PVD, Crohn's disease, IBS, tobacco use, AAA, hx of migraines, psoriasis, subclavian/femoral artery atherosclerosis who presents for chest, arm and back pain 2/2 likely cervical spine stenosis vs. vascular occlusion. #Neck Pain #Bilateral Arm Tingling #Headache -inducible tingling in bilateral UE with manipulation of neck -chest pain is occasional, not correlated with neck and arm pain -differential includes cervical spinal stenosis, cervical spine vascular occlusion, thoracic outlet syndrome, [place]/heart failure, other vascular disease, chronic migraines, less likely ankylosing psoondylitis, other autoimmune condition - CT of the neck did not show any cervical spine fracture or subluxation but showed moderate multilevel degenerative disc disease without central foraminal stenosis but has suspected moderate multilevel neural foraminal stenosis CT of the neck showed moderate focal stenosis of the right subclavian artery below the thoracic outlet CT of the head was unremarkable Echo of the heart showed LV systolic function is normal with EF 60 to 65%, grade 1 diastolic dysfunction, aortic valve sclerosis without stenosis, mild pulmonic valvular regurgitation, mild TR and mild MR She remains free from any symptoms since admission Her numbness bilaterally involving upper extremities happens to be with very high blood pressure and anxiety She does not need to go for any MRI of the neckher neuro examination remain unremarkable Episodic tingling involving the hands bilaterally but noted to have maintain blood pressure with it Did not have any other symptoms associated with it Denies any more headache or neck pain Bilateral arm and forearm tingling has disappeared does not have any other neurological symptoms DEBBIE Has history of anxiety and has not been taking Lexapro as an outpatient Has been having anxiety attack with diarrhea and more symptoms of numbness and tingling Lexapro has been restarted for the last 2 days and will give Ativan as needed on top of that Lexapro will be continued and she can have Ativan as needed for the next few days before Lexapro kicks in completely #HTN #HLD -chronically uncontrolled She has been on lisinopril 20 mg daily She was given amlodipine which has been discontinued and will restart lisinopril as her home dose She will have visual outpatient medications to control blood pressure #COPD -continue prn albuterol #PVD #Subclavian/Femoral Artery Atherosclerosis -f/u outpatient with vascular #Crohns Disease -f/u with GI outpatient Has been complaining of some diarrhea without significant abdominal pain but has epigastric discomfort Will send stool for C. difficile and increase the dose of Protonix to twice daily C. difficile has been negative and does not have any more diarrhea I spent a total of 33 minutes seeing the patient, examining her, going over with the results of investigation, managing her acute symptoms and also planning of care. Admission and Anticipated Discharge Date Admission Date: July 05, 2025 Subjective 07/06/2025 The patient was seen and examined in medical telemetry unit She has been stable but complains to have lots of anxiety Her blood pressure goes very high likely with anxiety and it can go as high as systolic 190 She feels weird with some neck pain and also tingling involving the both upper extremities during an episode Denies any neck pain as such 07/07/2025 The patient was seen and examined in medical telemetry unit in presence of the She remains very anxious and complains to have lower abdominal pain with anxiety and diarrhea Has had low blood pressure this morning with systolic 99 and also tingling involving the both extremities Denies any fever and/or chills and no other signs and symptoms of Crohn's disease 07/08/2025 The patient was seen and examined in medical telemetry unit She has been much better today, looks better and does not look flushed as before and not so anxious No more diarrhea or abdominal discomfort and denies any more episode of numbness and tingling He will be discharged home this afternoon Review of Systems Review of Systems: All systems reviewed and are unremarkable except as noted below Physical Exam Physical Exam: Usually lying in bed with anxiety but no other Constitutional: + ill appearing and average body habitus Eyes: PERRL, conjunctivae normal, anicteric sclerae ENMT: external ear and nose normal, oropharynx normal Neck: trachea midline, no thyromegaly Respiratory: no respiratory distress Auscultation: lungs clear to auscultation bilaterally Cardiovascular: Rate/Rhythm: regular rate and regular rhythm; not tachycardic Heart Sounds: normal S1 and normal S2; no murmur Extremities: no edema Gastrointestinal (Abdomen): Inspection/Auscultation: normal bowel sounds; abdomen not distended Percussion/Palpation: abdomen soft; abdomen nontender Musculoskeletal: Head/Neck/Chest: normocephalic and neck supple; full ROM of neck and no scalp tenderness Neurologic: normal touch/pain/proprioception and moves all extremities; no focal motor deficits Lymphatic: no cervical or axillary lymphadenopathy Results & Data Results & Data Vital Signs (Past 12 Hours) Vital Signs Temp Pulse Pulse Resp BP Pulse Ox O2 Del Method 07/08/25 11:29 36.6 C 63 19 149/86 H 97 Room Air 07/08/25 07:33 36.8 C 61 18 123/78 98 Room Air 07/08/25 05:40 50 L 07/08/25 02:42 36.4 C L 50 L 18 104/66 97 Room Air Laboratory Results Short CBC 07/08/25 Range/Units 05:43 WBC 6.20 (4.8-10.8) K/ul Hgb 12.3 (12.0-16.0) g/dL Hct 37.0 (37.0-47.0) % Plt Count 254 (130-400) K/uL BMP 07/08/25 05:43 Sodium 141 Potassium 3.7 Chloride 112 H Carbon Dioxide 23 BUN 11 Creatinine 0.67 Glucose 100 H Calcium 8.6 Liver Function 07/08/25 Range/Units 05:43 Total Bilirubin 0.6 (0.2-1.0) mg/dl AST 16 (13-39) U/L ALT 14 (7-52) U/L Alkaline Phosphatase 56 (34-104) U/L Albumin 3.7 (3.4-5.0) gm/dl Medications Administered Current Inpatient Medications Acetaminophen (Acetaminophen 325 Mg Tab) 650 mg PO Q4H PRN PRN Reason: pain/fever Stop: 08/04/25 16:14 Last Admin: 07/05/25 16:40 Dose: 650 mg Al Hydrox/Mg Hydrox/Simethicone (Aluminum/Magnesium Susp 30 Ml Udc) 15 ml PO Q6H PRN PRN Reason: Dyspepsia Stop: 08/06/25 13:06 Last Admin: 07/07/25 15:15 Dose: 15 ml Albuterol (Albuterol 0.083% Nebu Soln 3 Ml Vial) 2.5 mg INH QID PRN; Protocol PRN Reason: Shortness Of Breath Stop: 08/04/25 16:14 Atorvastatin Calcium (Atorvastatin 20 Mg Tab) 20 mg PO HS [facility] Stop: 08/04/25 20:59 Last Admin: 07/07/25 20:58 Dose: 20 mg Enoxaparin Sodium (Enoxaparin Inj 40 Mg/0.4 Ml Syr) 40 mg SQ Q24H [facility] Stop: 08/04/25 20:59 Last Admin: 07/07/25 20:58 Dose: 40 mg Escitalopram Oxalate (Escitalopram Oxalate 10 Mg Tab) 10 mg PO DAILY [facility] Stop: 08/05/25 10:29 Last Admin: 07/08/25 08:39 Dose: 10 mg Hydroxyzine HCl (Hydroxyzine Hcl 25 Mg Tab) 25 mg PO TID PRN PRN Reason: Anxiety Stop: 08/04/25 16:46 Last Admin: 07/05/25 17:04 Dose: 25 mg Levothyroxine Sodium (Levothyroxine Sodium 75 Mcg Tablet) 75 mcg PO DAILYBB [facility] Stop: 08/05/25 06:29 Last Admin: 07/08/25 06:29 Dose: 75 mcg Lisinopril (Lisinopril 20 Mg Tab) 20 mg PO DAILY [facility] Stop: 08/06/25 08:59 Last Admin: 07/08/25 08:39 Dose: 20 mg Lorazepam (Lorazepam 0.5 Mg Tab) 0.5 mg PO BID PRN PRN Reason: Anxiety Stop: 08/06/25 13:07 Last Admin: 07/08/25 12:56 Dose: 0.5 mg Miscellaneous (Remove Nicoderm Patch) 1 each N/A DAILY@0859 [facility] Stop: 08/05/25 08:58 Last Admin: 07/08/25 08:39 Dose: 1 each Nicotine (Nicotine 21 Mg/24 Hr Tdsy) 1 patch TD QAM [facility] Stop: 08/04/25 11:29 Last Admin: 07/08/25 08:40 Dose: 1 patch Ondansetron HCl (Ondansetron Inj 2 Mg/Ml 2 Ml Vial) 4 mg IV Q6H PRN PRN Reason: Nausea Stop: 08/04/25 16:14 Pantoprazole Sodium (Pantoprazole 40 Mg Tab) 40 mg PO BID [facility] Stop: 08/06/25 20:59 Last Admin: 07/08/25 08:40 Dose: 40 mg Polyethylene Glycol (Polyethylene (Miralax) 17 Gm Pack) 17 gm PO DAILY PRN PRN Reason: Constipation Stop: 08/04/25 16:14
[2025-07-09 06:32] LABS: Hematocrit (blood only) 37.7 % (37.0-47.0); Hemoglobin 12.7 g/dL (12.0-16.0); Immature Granulocytes # (auto) 0.02 K/uL (0.01-0.20); Immature Granulocytes % (auto) 0.3 %; Mean Corpuscular Hemoglobin 30.2 pg (25.0-34.0); Mean Corpuscular Volume 89.5 fL (80.0-100.0); Platelet Count 270 K/uL (130-400); RDW Standard Deviation 49.5 fL (36.4-46.3); Red Blood Count 4.21 M/uL (4.20-5.40); White Blood Count 7.11 K/ul (4.8-10.8)
[2025-07-09 07:07] LABS: Alanine Aminotransferase 15.0 U/L (7-52); Albumin Globulin Ratio 1.9 (0.9-2); Albumin Level 4.0 gm/dl (3.4-5.0); Alkaline Phosphatase 59.0 U/L (34-104); Anion Gap 6.0 (3-11); Bilirubin,Total 0.8 mg/dl (0.2-1.0); Blood Urea Nitrogen 9.0 mg/dl (6-23); Calcium 9.0 mg/dl (8.6-10.3); Carbon Dioxide 25.0 mmol/L (21-32); Chloride 109.0 mmol/L (98-107); Creatinine Clr Calc Pharmacy 79.4 ml/min; Globulin 2.1 gm/dl (2.5-4.0); Glucose 93.0 mg/dl (70-99(Fasting)); Potassium 3.7 mmol/L (3.5-5.1); Sodium 140.0 mmol/L (136-145); Total Protein 6.1 gm/dl (6.0-8.3)
[2025-07-09 08:11] VITALS: PULSE 72; RESP 20; TEMP 98.4; O2SAT 92
--- NOTE | 2025-07-09 10:46 | Discharge Summary ---
Discharge Summary Date of Service July 09, 2025 Principal Dx & Hospital Course #1 = Principal Diagnosis (1) Back pain: (2) Hypothyroidism: (3) Hypertension: (4) High cholesterol: (5) Emphysema lung: (6) Crohn's disease: (7) Psoriasis: (8) PVD (peripheral vascular disease): Plan 60 yo female with pmhx of COPD, HLD, hypothyroidism, PVD, Crohn's disease, IBS, tobacco use, AAA, hx of migraines, psoriasis, subclavian/femoral artery atherosclerosis who presents for chest, arm and back pain and b/l paresthesia of hands. Extensive workup completed as below which was essentially normal. Her symptoms completely resolved. Etiology of her symptoms likely secondary to anxiety from not taking her lexapro. Lexapro was resumed and she is feeling very well today. She has no complaints and wishes to be discharged home. Will send her a week's worth of prn ativan until her lexapro takes effect. #Neck Pain #Bilateral Arm Tingling #Headache -inducible tingling in bilateral UE with manipulation of neck -chest pain is occasional, not correlated with neck and arm pain -differential includes cervical spinal stenosis, cervical spine vascular occlusion, thoracic outlet syndrome, [place]/heart failure, other vascular disease, chronic migraines, less likely ankylosing psoondylitis, other autoimmune condition - CT of the neck did not show any cervical spine fracture or subluxation but showed moderate multilevel degenerative disc disease without central foraminal stenosis but has suspected moderate multilevel neural foraminal stenosis CT of the neck showed moderate focal stenosis of the right subclavian artery below the thoracic outlet CT of the head was unremarkable Echo of the heart showed LV systolic function is normal with EF 60 to 65%, grade 1 diastolic dysfunction, aortic valve sclerosis without stenosis, mild pulmonic valvular regurgitation, mild TR and mild MR She remains free from any symptoms since admission Her numbness bilaterally involving upper extremities happens to be with very high blood pressure and anxiety She does not need to go for any MRI of the neckher neuro examination remain unremarkable Episodic tingling involving the hands bilaterally but noted to have maintain blood pressure with it Did not have any other symptoms associated with it Denies any more headache or neck pain Bilateral arm and forearm tingling has disappeared does not have any other neuro logical symptoms DEBBIE Has history of anxiety and has not been taking Lexapro as an outpatient Has been having anxiety attack with diarrhea and more symptoms of numbness and tingling Lexapro has been restarted will give Ativan as needed on top of that Lexapro will be continued and she can have Ativan as needed for the next few days before Lexapro kicks in completely #HTN #HLD -chronically uncontrolled but stable today 108/61 on day of discharge She has been on lisinopril 20 mg daily #COPD -continue prn albuterol #PVD #Subclavian/Femoral Artery Atherosclerosis -f/u outpatient with vascular #Crohns Disease -f/u with GI outpatient -Diarrhea resolved. C. diff negative I spent a total of 35 minutes coordinating, documenting, and providing care for this patient excluding time spent in the performance of separately billed services. This included personally reviewing all current laboratories and imaging studies, medical reconciliation, outpatient chart review and discussion with specialists Notes For Next Care Provider Medication Changes From Visit prn ativan ordered for 7 days She is to resume her home lexapro Admission HPI Per Admitting Provider 60 yo female with pmhx of COPD, HLD, hypothyroidism, PVD, Crohn's disease, IBS, tobacco use, AAA, hx of migraines, psoriasis, subclavian/femoral artery atherosclerosis who presents for chest, arm and back pain. Last admission at [facility] was in 2022 for a partial SBO. In the ED, negative troponins, normal blood work, 3rd time in ED for similar concerns, admit for observation to medicine for chest pain rule out. Patient seen and examined at bedside. Patient states she has been having tingling in her arms and some upper back pain for the past few weeks. She states getting worse. States worse with movement. She occasionally has chest pain but they do not seem correlated. She smokes about a pack a day of tobacco. States her blood pressure has been running on the high side recently. Denies nausea vomiting diarrhea. Does have a headache. Social drinker, 1 pack a day tobacco use, marijuana user, full code. Discharge Exam Vitals and labs reviewed General: Well appearing, NAD HEENT: EOMI, PERRLA Neck: Supple Cardiac: RRR no rubs gallops or murmurs Lungs: CTA no rhonchi wheezing or rales Abd: S NT ND BS positive : Deffered MSK: Full ROM. No obvious deformities Ext: No Edema cyanosis Skin: Warm, Dry Neuro: AOx3 No focal deficits. Psych: Normal Mood Updated Medication List Medication Instructions Recorded Confirmed Type albuterol sulfate 2.5 mg/3 mL 2.5 mg inhalation QID PRN 08/21/22 07/05/25 History (0.083 %) solution for nebulization Shortness Of Breath cholecalciferol (vitamin D3) 50 50 mcg PO DAILY 08/21/22 07/05/25 History mcg (2,000 unit) capsule (Vitamin D3) escitalopram oxalate 10 mg tablet 10 mg PO DAILY 08/21/22 07/05/25 History levothyroxine 25 mcg tablet 25 mcg PO DAILYBB 08/21/22 07/05/25 History sumatriptan succinate 6 mg/0.5 mL 6 mg subcut BID PRN Headache 08/21/22 07/05/25 History subcutaneous cartridge (refill) lisinopril 20 mg tablet 20 mg PO DAILY #30 tabs 08/26/22 07/05/25 Rx atorvastatin 20 mg tablet 20 mg PO HS 11/08/22 07/05/25 History omeprazole 40 mg capsule,delayed 40 mg PO DAILY 11/08/22 07/05/25 History release prednisone 20 mg tablet 40 mg (2 x 20 mg) PO DAILY #20 tabs 11/10/22 07/05/25 Rx hydroxyzine HCl 25 mg tablet 25 mg PO TID PRN Anxiety 07/05/25 07/05/25 History lorazepam 0.5 mg tablet 0.5 mg PO BID PRN anxiety 7 days 07/09/25 Rx #14 tabs Hospital Stay Data Consultations 07/05/25 10:42 ED Decision to Admit Stat Diagnostic Imagining Performed 07/05/25 11:16 CT cervical spine wo con Urgent CTA neck with con [CT angio neck with con] Urgent 07/05/25 11:22 CT head/brain wo con Urgent Discharge Instructions Given to Patient (Per Discharging Provider) If you develop chest pain, shortness of breath, weakness or numbness, please return to the ED immediately, otherwise please follow up with your PCP in 1 week Total Time Total Time Spent Total Time Spent (In Minutes): 35
[2025-07-09 11:03] VITALS: BP 113/59
== END 2025-07-09 12:19 | disposition home or self-care (01) | DRG 880 ==
LOC: ED 09:06 → EDINP 09:06 → SUATTDRO 10:47 → 2N 13:05 → SUATTDRO 07-08 14:04